=== PATIENT | male | born 1960 | race Caucasian/White ===

== ENCOUNTER → 2020-02-09 13:29 | Outpatient (BNVA) | payer MEDICARE, MEDICAID, SELFPAY | PROVIDERS: Visit Provider Urology | DX: N40.1 Benign prostatic hyperplasia with lower urinary tract symptoms (principal); N13.8 Other obstructive and reflux uropathy; R35.1 Nocturia; R81 Glycosuria; N48.1 Balanitis; N20.0 Calculus of kidney; Z79.899 Other long term (current) drug therapy | CPT/HCPCS: 51798; 81002; 99212 ==

== ENCOUNTER 2020-05-09 13:11 | Inpatient (IN) | payer MEDICARE, MEDICAID, SELFPAY ==
--- NOTE | 2020-05-09 13:38 | XR_ITS ---
EXAMINATION: XR CHEST CLINICAL INFORMATION: Cough and SOB. COMPARISON: Chest 12/09/2008 TECHNIQUE: Frontal view of the chest was obtained. FINDINGS: The lungs are in moderate inspiration with increased interstitial markings and patchy opacities in both lungs suggestive of interstitial pneumonitis. The heart size and pulmonary vascularity is normal. No gross bony abnormality seen. XR/XR chest 1V IMPRESSION: Increase interstitial markings with patchy opacity suspicious for early infiltrates.
--- NOTE | 2020-05-09 13:43 | ED.GENADULT ---
HPI - General Adult General Chief complaint: Upper Respiratory Symptoms <BIANCA Briseno - Last Filed: 05/09/20 18:37> Stated complaint: FLU LIKE SYMPTOMS <BIANCA Briseno - Last Filed: 05/09/20 18:37> Time Seen by Provider: 05/09/20 13:28 <BIANCA Briseno - Last Filed: 05/09/20 18:37> Source: patient <BIANCA Briseno - Last Filed: 05/09/20 18:37> Mode of arrival: ambulatory <BIANCA Briseno - Last Filed: 05/09/20 18:37> Limitations: no limitations <BIANCA Briseno Last Filed: 05/09/20 18:37> History of Present Illness HPI narrative: Patient presents to ED for flu-like symptoms. Patient states for 9 days coughing, shortness of breath on exertion, body aches, and chills. Patient denies any swelling of lower extremity, calf pain, recent long travel, recent surgery, or any history of control use. <BIANCA Briseno - Last Filed: 05/09/20 18:37> Related Data Home medications: Home Medications Medication Instructions Recorded Confirmed potassium citrate 15 mEq (1,620 15 meq PO BID 02/09/20 05/09/20 mg) tablet,extended release blood sugar diagnostic #10 ea 02/20/20 02/20/20 empagliflozin 25 mg tablet 25 mg PO QAM 02/20/20 05/09/20 hydrochlorothiazide 12.5 mg capsule 12.5 mg PO DAILY 02/20/20 05/09/20 Trulicity 1.5 mg SUBCUT QWEEK 05/09/20 05/09/20 cholecalciferol (vitamin D3) 1 cap PO DAILY 05/09/20 05/09/20 Previous Rx's Medication Instructions Recorded ezetimibe 10 mg tablet 10 mg PO DAILY #90 tab 02/13/20 tamsulosin 0.4 mg capsule 0.8 mg PO BEDTIME #30 cap 03/19/20 lisinopril 40 mg tablet 40 mg PO DAILY #90 tab 03/29/20 apixaban [Eliquis] 5 mg PO BID #70 tab 05/13/20 dexamethasone 6 mg PO DAILY #7 tab 02/07/21 insulin degludec 40 unit SUBCUT DAILY 90 Days #27 ml 05/13/20 omeprazole 20 mg PO DAILY #30 cap 05/13/20 <BIANCA Briseno Last Filed: 05/09/20 18:37> Allergies/adverse reactions: Allergies Allergy/AdvReac Type Severity Reaction Status Date / Time vancomycin [VANCOMYCIN] Allergy Severe ANAPHYLAXIS Verified 02/09/20 13:37 morphine [MORPHINE] Allergy Intermediate RASH Verified 02/09/20 13:37 Penicillins Allergy Intermediate edema Verified 05/13/20 10:53 penicillin V Allergy Mild unknown Verified 02/09/20 13:37 ibuprofen [From MOTRIN] Allergy Unknown edema Verified 02/20/20 09:38 Motrin AdvReac Unknown Unknown Uncoded 02/09/20 13:37 <BIANCA Briseno Last Filed: 05/09/20 18:37> Review of Systems Review of Systems: Yes all other systems are reviewed and are negative <BIANCA Briseno Last Filed: 05/09/20 18:37> Constitutional: Constitutional: Reports as per HPI, Reports no additional constitutional complaints, Reports body ache(s), Reports chills and Reports fatigue <BIANCA Briseno Last Filed: 05/09/20 18:37> Eyes: Eyes: Reports as per HPI and Reports no additional eye complaints <BIANCA Briseno Last Filed: 05/09/20 18:37> ENT: Reports system reviewed and no additional complaints, except as documented and Reports as per HPI <BIANCA Briseno Last Filed: 05/09/20 18:37> Cardiovascular: Cardiovascular: Reports as per HPI, Reports no additional cardiovascular complaints, Denies chest pain, Reports dyspnea and Reports dyspnea on exertion <BIANCA Briseno Last Filed: 05/09/20 18:37> Respiratory: Respiratory: Reports as per HPI, Reports no additional respiratory complaints, Reports dyspnea and Reports dyspnea on exertion <BIANCA Briseno Last Filed: 05/09/20 18:37> Gastrointestinal: Gastrointestinal: Reports as per HPI and Reports no additional gastrointestinal complaints <BIANCA Briseno Last Filed: 05/09/20 18:37> Genitourinary: Genitourinary: Reports no additional male genitourinary complaints and Reports as per HPI <BIANCA Briseno - Last Filed: 05/09/20 18:37> Musculoskeletal: Musculoskeletal: Reports no additional musculoskeletal complaints and Reports as per HPI <BIANCA Briseno Last Filed: 05/09/20 18:37> Neurologic: Reports system reviewed and no additional complaints, except as documented and Reports as per HPI <BIANCA Briseno - Last Filed: 05/09/20 18:37> Psychiatric: Psychiatric: Reports no additional psychiatric complaints and Reports as per HPI <BIANCA Briseno - Last Filed: 05/09/20 18:37> Endocrine: Endocrine: Reports fatigue <BIANCA Briseno Last Filed: 05/09/20 18:37> [facility] Past Medical History Medical History: Medical History Back pain CAD (coronary artery disease) Colitis Controlled diabetes mellitus without complication, with long-term current use of insulin Essential hypertension Hyperlipidemia LDL goal <70 Kidney stones Obesity due to excess calories Phimosis Vitamin D deficiency <BIANCA Briseno - Last Filed: 05/09/20 18:37> Surgical History: Surgical History History of colon surgery Hx of rotator cuff surgery <BIANCA Briseno - Last Filed: 05/09/20 18:37> Family History Family History: Family History Father Diabetes Mother No problems noted. <BIANCA Briseno - Last Filed: 05/09/20 18:37> Social History Social History: Social History Household Members: Spouse and Family Housing: Apartment Alcohol intake: never Smoking Status: Never smoker Advance Directives Date on File: 05/10/20 <BIANCA Briseno - Last Filed: 05/09/20 18:37> Physical Exam Vital Signs: Vital Signs: Last Vital Signs Temp 97.4 F 05/13/20 11:07 Pulse 92 05/13/20 11:07 Resp 16 05/13/20 11:07 BP 135/68 05/13/20 11:07 Pulse Ox 97 05/13/20 11:07 Body Mass Index 39.7 <BIANCA Briseno Last Filed: 05/09/20 18:37> Vital Signs: Last Vital Signs Temp 97.4 F 05/13/20 11:07 Pulse 92 05/13/20 11:07 Resp 16 05/13/20 11:07 BP 135/68 05/13/20 11:07 Pulse Ox 97 05/13/20 11:07 Body Mass Index 39.7 <Santo Hanson MD - Last Filed: 05/22/20 07:12> Const: General: cooperative, healthy appearing, comfortable, no acute distress, well developed, alert and awake <BIANCA Briseno Last Filed: 05/09/20 18:37> Orientation/consciousness: oriented to time and patient oriented x3 <BIANCA Briseno - Last Filed: 05/09/20 18:37> HENMT: Head: Yes normal to inspection, Yes No palpable skull fracture present, Yes normocephalic, Yes atraumatic and No abrasion <BIANCA Briseno Last Filed: 05/09/20 18:37> Eyes: General: appearance normal, both eyes and all related structures <BIANCA Briseno Last Filed: 05/09/20 18:37> Neck: Neck: Yes normal visual inspection, Yes full ROM, Yes no lymphadenopathy, Yes no meningeal signs, Yes trachea midline, Yes supple and No tender <BIANCA Briseno Last Filed: 05/09/20 18:37> Chest: Chest palpation & inspection: normal inspection of the chest and normal palpation of entire chest wall <BIANCA Briseno Last Filed: 05/09/20 18:37> Resp: Effort & Inspection: normal respiratory effort and able to speak in complete sentences <BIANCA Briseno Last Filed: 05/09/20 18:37> Auscultation: clear to auscultation bilaterally <BIANCA Briseno Last Filed: 05/09/20 18:37> Cardio: Jugular venous distension: no JVD <BIANCA Briseno Last Filed: 05/09/20 18:37> Heart sounds: S1 normal heart sound present and S2 normal heart sound present <BIANCA Briseno Last Filed: 05/09/20 18:37> GI: Inspection: Yes normal to inspection and No abdominal wall ecchymosis <BIANCA Briseno Last Filed: 05/09/20 18:37> Palpation (GI): not firm, nontender, no guarding and not rigid <BIANCA Briseno Last Filed: 05/09/20 18:37> : General: No CVA tenderness and Yes no CVA tenderness <BIANCA Briseno Last Filed: 05/09/20 18:37> Back/Spine/Pelvis: Back: no CVA tenderness, No CVA tenderness and No back tenderness <BIANCA Briseno Last Filed: 05/09/20 18:37> Skin: General skin exam: no rashes or lesions noted and elasticity normal <BIANCA Briseno Last Filed: 05/09/20 18:37> Neuro: General: oriented to time, patient oriented x3, no meningeal signs and CN's II-XI intact bilaterally <BIANCA Briseno Last Filed: 05/09/20 18:37> Cranial nerves: Yes CN's II-XII intact bilaterally <BIANCA Briseno Last Filed: 05/09/20 18:37> Extrem: Other: Negative for swelling, pitting edema, calf tenderness <BIANCA Briseno - Last Filed: 05/09/20 18:37> General: Yes normal to inspection and Yes full ROM <BIANCA Briseno Last Filed: 05/09/20 18:37> Psych: Appearance: grossly normal, well kempt and not disheveled <BIANCA Briseno Last Filed: 05/09/20 18:37> Course Course Course Narrative: Patient vital signs are monitor stable. Patient O2 saturation on room air is 94-95%. Will do COVID workup and cardiac workup due to obesity. Patient states history of asthma and would like nebulizer treatment. Albuterol inhaler and magnesium ordered. Chest x-ray ordered an EKG <BIANCA Briseno Last Filed: 05/09/20 18:37> I have reviewed the chart <Santo Hanson MD - Last Filed: 05/22/20 07:12> Reevaluation(s) Reevaluation #1: Patient EKG negative for STEMI. Patient's COVID swab came back positive. Patient's D-dimer came back positive. Due to this patient will be sent for chest CTA to rule out COVID PE. Patient given Decadron and IV antibiotics for possible admission if CT is abnormal. Patient O2 saturation on ambulation maintained around 95%. <BIANCA Briseno - Last Filed: 05/09/20 18:37> Time: 17:04 <BIANCA Briseno - Last Filed: 05/09/20 18:37> Reevaluation #2: Radiologist called to give a critical result of patient being positive for central and segmental pulmonary emboli. Patient will be admitted. Hospitalist will be contacted for preference of treatment in terms of Lovenox versus IV heparin <BIANCA Briseno - Last Filed: 05/09/20 18:37> Time: 17:41 <BIANCA Briseno - Last Filed: 05/09/20 18:37> Reevaluation #3: Spoke with hospitalist and they prefer Lovenox injection <BIANCA Briseno - Last Filed: 05/09/20 18:37> Time: 18:31 <BIANCA Briseno - Last Filed: 05/09/20 18:37> Medical Decision Making MDM Narrative Medical decision making narrative: Positive COVID. PE <BIANCA Briseno - Last Filed: 05/09/20 18:37> Lab Data Result diagrams: : 05/10/20 06:24 05/12/20 09:11 <BIANCA Briseno - Last Filed: 05/09/20 18:37> Labs: Lab Results 05/09/20 05/09/20 05/09/20 Range/Units 14:44 14:44 14:44 WBC 3.7 L (4.8-10.8) X10*3/uL RBC 4.41 L (4.60-5.80) X10*6/uL Hgb 13.0 L (14.0-18.0) g/dl Hct 36.8 L (42-52) % MCV 83.4 (80-98) fL MCH 29.5 (27.0-33.0) pg MCHC 35.3 (31.0-36.0) g/dl RDW 12.0 (11.0-16.0) % Plt Count 156 L (160-400) X10*3/uL MPV 10.3 (9.4-12.4) fL Immature Gran % (Auto) 1.4 H (0.0-0.4) % Neut % (Auto) 68.1 (45-73) % Lymph % (Auto) 19.6 L (20-40) % [place] % (Auto) 9.8 (2-11) % Eos % (Auto) 0.8 (0-4) % Baso % (Auto) 0.3 (0-2) % Lymph # (Auto) 0.7 L (1.2-4.9) X10*3/uL [place] # (Auto) 0.4 (0.1-1.2) X10*3/uL Eos # (Auto) 0.0 (0.0-0.4) X10*3/uL Baso # (Auto) 0.0 (0.0-0.2) X10*3/uL Abs Immat Gran (auto) 0.05 H (0.00-0.03) X10*3/uL Absolute Neuts (auto) 2.5 (2.0-8.3) X10*3/uL Absolute Nucleated RBC 0.000 (0.0-0.012) X10*3/uL Nucleated RBC % (auto) 0.0 (0.0-0.2) /100WBC PT 12.3 (10.8-13.0) SEC INR 1.0 (0.9-1.1) APTT 30.0 (24.1-38.0) SEC D-Dimer 1244 NG/ML Sodium 132 L (135-145) mmol/L Potassium 3.5 (3.3-5.1) mmol/L Chloride 103 (96-108) mmol/L Carbon Dioxide 20 L (22-29) mmol/L Anion Gap 13 (12-20) BUN 12 (9-16) mg/dL Creatinine 1.32 (0.5-1.4) mg/dL Estim Creat Clear Calc 73.9 Estimated GFR 56 POC Glucose (60-115) mg/dL Random Glucose 322 H (60-115) mg/dL Lactic Acid (0.5-2.0) mmol/L Calcium 7.8 L (8.4-10.2) mg/dL Ferritin 2518 H (20-250) ng/mL Total Bilirubin 0.7 (0.0-1.0) mg/dL Direct Bilirubin 0.3 (0.0-0.5) mg/dL AST 36 (5-37) U/L ALT 37 (0-40) U/L Alkaline Phosphatase 77 (39-117) U/L Lactate Dehydrogenase 293 H (118-273) U/L Troponin I High Sens (<3.5-35.0) ng/L B-Natriuretic Peptide (<100) pg/mL Total Protein 6.2 L (6.5-8.0) g/dL Albumin 3.3 L (3.5-5.0) g/dL Procalcitonin ng/mL Coronavirus (PCR) (Negative) Influenza Type A (PCR) (Negative) Influenza Type B (PCR) (Negative) RSV RNA Qual (PCR) (Negative) 05/09/20 05/09/20 05/09/20 Range/Units 14:44 14:44 14:44 WBC (4.8-10.8) X10*3/uL RBC (4.60-5.80) X10*6/uL Hgb (14.0-18.0) g/dl Hct (42-52) % MCV (80-98) fL MCH (27.0-33.0) pg MCHC (31.0-36.0) g/dl RDW (11.0-16.0) % Plt Count (160-400) X10*3/uL MPV (9.4-12.4) fL Immature Gran % (Auto) (0.0-0.4) % Neut % (Auto) (45-73) % Lymph % (Auto) (20-40) % [place] % (Auto) (2-11) % Eos % (Auto) (0-4) % Baso % (Auto) (0-2) % Lymph # (Auto) (1.2-4.9) X10*3/uL [place] # (Auto) (0.1-1.2) X10*3/uL Eos # (Auto) (0.0-0.4) X10*3/uL Baso # (Auto) (0.0-0.2) X10*3/uL Abs Immat Gran (auto) (0.00-0.03) X10*3/uL Absolute Neuts (auto) (2.0-8.3) X10*3/uL Absolute Nucleated RBC (0.0-0.012) X10*3/uL Nucleated RBC % (auto) (0.0-0.2) /100WBC PT (10.8-13.0) SEC INR (0.9-1.1) APTT (24.1-38.0) SEC D-Dimer NG/ML Sodium (135-145) mmol/L Potassium (3.3-5.1) mmol/L Chloride (96-108) mmol/L Carbon Dioxide (22-29) mmol/L Anion Gap (12-20) BUN (9-16) mg/dL Creatinine (0.5-1.4) mg/dL Estim Creat Clear Calc Estimated GFR POC Glucose (60-115) mg/dL Random Glucose (60-115) mg/dL Lactic Acid 0.8 (0.5-2.0) mmol/L Calcium (8.4-10.2) mg/dL Ferritin (20-250) ng/mL Total Bilirubin (0.0-1.0) mg/dL Direct Bilirubin (0.0-0.5) mg/dL AST (5-37) U/L ALT (0-40) U/L Alkaline Phosphatase (39-117) U/L Lactate Dehydrogenase (118-273) U/L Troponin I High Sens 8.4 (<3.5-35.0) ng/L B-Natriuretic Peptide 18 (<100) pg/mL Total Protein (6.5-8.0) g/dL Albumin (3.5-5.0) g/dL Procalcitonin 0.13 ng/mL Coronavirus (PCR) (Negative) Influenza Type A (PCR) (Negative) Influenza Type B (PCR) (Negative) RSV RNA Qual (PCR) (Negative) 05/09/20 05/09/20 05/09/20 Range/Units 14:45 19:01 19:52 WBC (4.8-10.8) X10*3/uL RBC (4.60-5.80) X10*6/uL Hgb (14.0-18.0) g/dl Hct (42-52) % MCV (80-98) fL MCH (27.0-33.0) pg MCHC (31.0-36.0) g/dl RDW (11.0-16.0) % Plt Count (160-400) X10*3/uL MPV (9.4-12.4) fL Immature Gran % (Auto) (0.0-0.4) % Neut % (Auto) (45-73) % Lymph % (Auto) (20-40) % [place] % (Auto) (2-11) % Eos % (Auto) (0-4) % Baso % (Auto) (0-2) % Lymph # (Auto) (1.2-4.9) X10*3/uL [place] # (Auto) (0.1-1.2) X10*3/uL Eos # (Auto) (0.0-0.4) X10*3/uL Baso # (Auto) (0.0-0.2) X10*3/uL Abs Immat Gran (auto) (0.00-0.03) X10*3/uL Absolute Neuts (auto) (2.0-8.3) X10*3/uL Absolute Nucleated RBC (0.0-0.012) X10*3/uL Nucleated RBC % (auto) (0.0-0.2) /100WBC PT (10.8-13.0) SEC INR (0.9-1.1) APTT (24.1-38.0) SEC D-Dimer NG/ML Sodium (135-145) mmol/L Potassium (3.3-5.1) mmol/L Chloride (96-108) mmol/L Carbon Dioxide (22-29) mmol/L Anion Gap (12-20) BUN (9-16) mg/dL Creatinine (0.5-1.4) mg/dL Estim Creat Clear Calc Estimated GFR POC Glucose 305 H (60-115) mg/dL Random Glucose (60-115) mg/dL Lactic Acid (0.5-2.0) mmol/L Calcium (8.4-10.2) mg/dL Ferritin (20-250) ng/mL Total Bilirubin (0.0-1.0) mg/dL Direct Bilirubin (0.0-0.5) mg/dL AST (5-37) U/L ALT (0-40) U/L Alkaline Phosphatase (39-117) U/L Lactate Dehydrogenase (118-273) U/L Troponin I High Sens 9.4 (<3.5-35.0) ng/L B-Natriuretic Peptide (<100) pg/mL Total Protein (6.5-8.0) g/dL Albumin (3.5-5.0) g/dL Procalcitonin ng/mL Coronavirus (PCR) POSITIVE A (Negative) Influenza Type A (PCR) NEGATIVE (Negative) Influenza Type B (PCR) NEGATIVE (Negative) RSV RNA Qual (PCR) NEGATIVE (Negative) <BIANCA Briseno - Last Filed: 05/09/20 18:37> Lab Results 05/09/20 05/09/20 05/09/20 Range/Units 14:44 14:44 14:44 WBC 3.7 L (4.8-10.8) X10*3/uL RBC 4.41 L (4.60-5.80) X10*6/uL Hgb 13.0 L (14.0-18.0) g/dl Hct 36.8 L (42-52) % MCV 83.4 (80-98) fL MCH 29.5 (27.0-33.0) pg MCHC 35.3 (31.0-36.0) g/dl RDW 12.0 (11.0-16.0) % Plt Count 156 L (160-400) X10*3/uL MPV 10.3 (9.4-12.4) fL Immature Gran % (Auto) 1.4 H (0.0-0.4) % Neut % (Auto) 68.1 (45-73) % Lymph % (Auto) 19.6 L (20-40) % [place] % (Auto) 9.8 (2-11) % Eos % (Auto) 0.8 (0-4) % Baso % (Auto) 0.3 (0-2) % Lymph # (Auto) 0.7 L (1.2-4.9) X10*3/uL [place] # (Auto) 0.4 (0.1-1.2) X10*3/uL Eos # (Auto) 0.0 (0.0-0.4) X10*3/uL Baso # (Auto) 0.0 (0.0-0.2) X10*3/uL Abs Immat Gran (auto) 0.05 H (0.00-0.03) X10*3/uL Absolute Neuts (auto) 2.5 (2.0-8.3) X10*3/uL Absolute Nucleated RBC 0.000 (0.0-0.012) X10*3/uL Nucleated RBC % (auto) 0.0 (0.0-0.2) /100WBC PT 12.3 (10.8-13.0) SEC INR 1.0 (0.9-1.1) APTT 30.0 (24.1-38.0) SEC D-Dimer 1244 NG/ML Sodium 132 L (135-145) mmol/L Potassium 3.5 (3.3-5.1) mmol/L Chloride 103 (96-108) mmol/L Carbon Dioxide 20 L (22-29) mmol/L Anion Gap 13 (12-20) BUN 12 (9-16) mg/dL Creatinine 1.32 (0.5-1.4) mg/dL Estim Creat Clear Calc 73.9 Estimated GFR 56 POC Glucose (60-115) mg/dL Random Glucose 322 H (60-115) mg/dL Lactic Acid (0.5-2.0) mmol/L Calcium 7.8 L (8.4-10.2) mg/dL Ferritin 2518 H (20-250) ng/mL Total Bilirubin 0.7 (0.0-1.0) mg/dL Direct Bilirubin 0.3 (0.0-0.5) mg/dL AST 36 (5-37) U/L ALT 37 (0-40) U/L Alkaline Phosphatase 77 (39-117) U/L Lactate Dehydrogenase 293 H (118-273) U/L Troponin I High Sens (<3.5-35.0) ng/L B-Natriuretic Peptide (<100) pg/mL Total Protein 6.2 L (6.5-8.0) g/dL Albumin 3.3 L (3.5-5.0) g/dL Procalcitonin ng/mL Coronavirus (PCR) (Negative) Influenza Type A (PCR) (Negative) Influenza Type B (PCR) (Negative) RSV RNA Qual (PCR) (Negative) 05/09/20 05/09/20 05/09/20 Range/Units 14:44 14:44 14:44 WBC (4.8-10.8) X10*3/uL RBC (4.60-5.80) X10*6/uL Hgb (14.0-18.0) g/dl Hct (42-52) % MCV (80-98) fL MCH (27.0-33.0) pg MCHC (31.0-36.0) g/dl RDW (11.0-16.0) % Plt Count (160-400) X10*3/uL MPV (9.4-12.4) fL Immature Gran % (Auto) (0.0-0.4) % Neut % (Auto) (45-73) % Lymph % (Auto) (20-40) % [place] % (Auto) (2-11) % Eos % (Auto) (0-4) % Baso % (Auto) (0-2) % Lymph # (Auto) (1.2-4.9) X10*3/uL [place] # (Auto) (0.1-1.2) X10*3/uL Eos # (Auto) (0.0-0.4) X10*3/uL Baso # (Auto) (0.0-0.2) X10*3/uL Abs Immat Gran (auto) (0.00-0.03) X10*3/uL Absolute Neuts (auto) (2.0-8.3) X10*3/uL Absolute Nucleated RBC (0.0-0.012) X10*3/uL Nucleated RBC % (auto) (0.0-0.2) /100WBC PT (10.8-13.0) SEC INR (0.9-1.1) APTT (24.1-38.0) SEC D-Dimer NG/ML Sodium (135-145) mmol/L Potassium (3.3-5.1) mmol/L Chloride (96-108) mmol/L Carbon Dioxide (22-29) mmol/L Anion Gap (12-20) BUN (9-16) mg/dL Creatinine (0.5-1.4) mg/dL Estim Creat Clear Calc Estimated GFR POC Glucose (60-115) mg/dL Random Glucose (60-115) mg/dL Lactic Acid 0.8 (0.5-2.0) mmol/L Calcium (8.4-10.2) mg/dL Ferritin (20-250) ng/mL Total Bilirubin (0.0-1.0) mg/dL Direct Bilirubin (0.0-0.5) mg/dL AST (5-37) U/L ALT (0-40) U/L Alkaline Phosphatase (39-117) U/L Lactate Dehydrogenase (118-273) U/L Troponin I High Sens 8.4 (<3.5-35.0) ng/L B-Natriuretic Peptide 18 (<100) pg/mL Total Protein (6.5-8.0) g/dL Albumin (3.5-5.0) g/dL Procalcitonin 0.13 ng/mL Coronavirus (PCR) (Negative) Influenza Type A (PCR) (Negative) Influenza Type B (PCR) (Negative) RSV RNA Qual (PCR) (Negative) 05/09/20 05/09/20 05/09/20 Range/Units 14:45 19:01 19:52 WBC (4.8-10.8) X10*3/uL RBC (4.60-5.80) X10*6/uL Hgb (14.0-18.0) g/dl Hct (42-52) % MCV (80-98) fL MCH (27.0-33.0) pg MCHC (31.0-36.0) g/dl RDW (11.0-16.0) % Plt Count (160-400) X10*3/uL MPV (9.4-12.4) fL Immature Gran % (Auto) (0.0-0.4) % Neut % (Auto) (45-73) % Lymph % (Auto) (20-40) % [place] % (Auto) (2-11) % Eos % (Auto) (0-4) % Baso % (Auto) (0-2) % Lymph # (Auto) (1.2-4.9) X10*3/uL [place] # (Auto) (0.1-1.2) X10*3/uL Eos # (Auto) (0.0-0.4) X10*3/uL Baso # (Auto) (0.0-0.2) X10*3/uL Abs Immat Gran (auto) (0.00-0.03) X10*3/uL Absolute Neuts (auto) (2.0-8.3) X10*3/uL Absolute Nucleated RBC (0.0-0.012) X10*3/uL Nucleated RBC % (auto) (0.0-0.2) /100WBC PT (10.8-13.0) SEC INR (0.9-1.1) APTT (24.1-38.0) SEC D-Dimer NG/ML Sodium (135-145) mmol/L Potassium (3.3-5.1) mmol/L Chloride (96-108) mmol/L Carbon Dioxide (22-29) mmol/L Anion Gap (12-20) BUN (9-16) mg/dL Creatinine (0.5-1.4) mg/dL Estim Creat Clear Calc Estimated GFR POC Glucose 305 H (60-115) mg/dL Random Glucose (60-115) mg/dL Lactic Acid (0.5-2.0) mmol/L Calcium (8.4-10.2) mg/dL Ferritin (20-250) ng/mL Total Bilirubin (0.0-1.0) mg/dL Direct Bilirubin (0.0-0.5) mg/dL AST (5-37) U/L ALT (0-40) U/L Alkaline Phosphatase (39-117) U/L Lactate Dehydrogenase (118-273) U/L Troponin I High Sens 9.4 (<3.5-35.0) ng/L B-Natriuretic Peptide (<100) pg/mL Total Protein (6.5-8.0) g/dL Albumin (3.5-5.0) g/dL Procalcitonin ng/mL Coronavirus (PCR) POSITIVE A (Negative) Influenza Type A (PCR) NEGATIVE (Negative) Influenza Type B (PCR) NEGATIVE (Negative) RSV RNA Qual (PCR) NEGATIVE (Negative) <Santo Hanson MD - Last Filed: 05/22/20 07:12> ECG Data Interpretation: Normal sinus rhythm. Normal EKG. Ventricular rate 94. Parents were 144. QRS 96. QTC 447. Negative STEMI <BIANCA Briseno - Last Filed: 05/09/20 18:37> Discharge Plan Discharge Clinical Impression: COVID-19, Pulmonary embolism <BIANCA Briseno - Last Filed: 05/09/20 18:37> Patient Disposition: Admitted As Inpatient <BIANCA Briseno - Last Filed: 05/09/20 18:37> Interventions: Admission Worksheet (ED) Last Done: 05/10/20 13:29 <BIANCA Briseno - Last Filed: 05/09/20 18:37> Discharge Date/Time: 05/10/20 13:30 <BIANCA Briseno - Last Filed: 05/09/20 18:37>
[2020-05-09 13:52] VITALS: BP 154/61; PULSE 94; RESP 18; TEMP 37.2; O2SAT 96; BMI 39.7
--- NOTE | 2020-05-09 13:52 | ECG_ITS ---
Test Reason : CP Blood Pressure : / mmHG Vent. Rate : 094 BPM Atrial Rate : 094 BPM P-R Int : 144 ms QRS Dur : 096 ms QT Int : 358 ms P-R-T Axes : 049 035 055 degrees QTc Int : 447 ms Normal sinus rhythm Normal ECG When compared with ECG of 10-DEC-2019 07:03, No significant change was found Referred By: Casey Gunter Electronically Signed By:CHARLEY DUNCAN
[2020-05-09] MEDS: Magnesium Sulfate/H2O 2 GM/50 ML PIGGYBACK IV (14:17)
[2020-05-09] MEDS: 0.9 % Sodium Chloride 1,000 ML 999 ML IV (14:18)
[2020-05-09 14:39] VITALS: PULSE 92; O2SAT 93
[2020-05-09] MEDS: Albuterol/Iprat 2.5/0.5MG 3 ML AMPUL.NEB INHALE (14:39)
[2020-05-09 14:52] LABS: MANUAL DIFF FLAG NO
[2020-05-09 14:53] LABS: Basophils Percent Auto 0.3 % (0-2); Eosinophils Percent Auto 0.8 % (0-4); Hematocrit 36.8 % (42-52); Imm Gran Abs Auto 0.05 X10*3/uL (0.00-0.03); Imm Gran Pct Auto 1.4 % (0.0-0.4); Lymphocytes Absolute Auto 0.7 X10*3/uL (1.2-4.9); Lymphocytes Percent Auto 19.6 % (20-40); Mean Corpuscular HGB Conc 35.3 g/dl (31.0-36.0); Mean Corpuscular Hemoglobin 29.5 pg (27.0-33.0); Mean Corpuscular Volume 83.4 fL (80-98); Mean Platelet Volume 10.3 fL (9.4-12.4); Monocytes Absolute Auto 0.4 X10*3/uL (0.1-1.2); Monocytes Percent Auto 9.8 % (2-11); Neutrophils Absolute Auto 2.5 X10*3/uL (2.0-8.3); Neutrophils Percent Auto 68.1 % (45-73); Platelet Count 156 X10*3/uL (160-400); Red Blood Count 4.41 X10*6/uL (4.60-5.80); White Blood Count 3.7 X10*3/uL (4.8-10.8)
[2020-05-09 15:02] LABS: Prothrombin Time 12.3 SEC (10.8-13.0)
[2020-05-09 15:10] LABS: Lactic Acid 0.8 mmol/L (0.5-2.0)
[2020-05-09 15:12] LABS: D Dimer 1244 NG/ML
[2020-05-09 15:16] LABS: Alanine Aminotransferase 37 U/L (0-40); Albumin Level 3.3 g/dL (3.5-5.0); Alkaline Phosphatase 77 U/L (39-117); Anion Gap 13 (12-20); Aspartate Amino Transferase 36 U/L (5-37); Bilirubin Direct 0.3 mg/dL (0.0-0.5); Bilirubin Total 0.7 mg/dL (0.0-1.0); Blood Urea Nitrogen 12 mg/dL (9-16); Calcium 7.8 mg/dL (8.4-10.2); Carbon Dioxide 20 mmol/L (22-29); Chloride 103 mmol/L (96-108); Creatinine Clr Calc Pharmacy 73.9; Estimated Glomerular Filt Rate 56; Glucose Random 322 mg/dL (60-115); Lactate Dehydrogenase 293 U/L (118-273); Potassium 3.5 mmol/L (3.3-5.1); Sodium 132 mmol/L (135-145); Total Protein 6.2 g/dL (6.5-8.0)
[2020-05-09 15:21] LABS: B Type Natriuretic Peptide 18 pg/mL (<100); Troponin-I High Sensitivity 8.4 ng/L (<3.5-35.0)
--- NOTE | 2020-05-09 15:26 | CT_ITS ---
EXAMINATION: CT ANGIOGRAM CHEST WITH AND WITHOUT CONTRAST (CT PULMONARY ANGIOGRAM FOR PE) CLINICAL INFORMATION: Shortness of breath. Question COVID pneumonia, question PE. COMPARISON: Chest x-ray 05/09/2020. TECHNIQUE: Prior to contrast administration, noncontrast localization images were obtained. Subsequently, multidetector volumetric imaging was performed from the thoracic inlet to below the diaphragms following the administration of 71 mL Omnipaque 350 intravenous contrast. No contrast reaction reported. Sagittal, coronal, and MIP oblique sagittal reformatted images were obtained on the CT workstation, uploaded to PACS, and reviewed. This CT examination was performed using dose optimization techniques as appropriate, variously including the following: *Automated exposure control. *Adjustment of mA and/or kV according to patient size (this includes techniques or standardized protocols for targeted exams where dose is matched to indication/reason for exam; i.e. extremities or head). *Use of iterative reconstruction technique. Total exam dose-length product 552 mGy-cm. FINDINGS: QUALITY OF STUDY/CONTRAST BOLUS: Satisfactory. PULMONARY ARTERIES: Multiple filling defects in the central, segmental and subsegmental vessels in bilateral pulmonary arterial system compatible with pulmonary embolus. This includes thrombosis in the right main pulmonary artery, segmental and subsegmental vessels in the right hemithorax, the left upper lobe, left lower lobe. THORACIC AORTA: Normal caliber aorta. LUNG: Multifocal ground-glass opacities in the diffusely in the right hemithorax, and multifocal opacities in the left hemithorax to a lesser degree. These findings can be seen with COVID pneumonia. PLEURA: No pleural effusion or pneumothorax. MEDIASTINUM: Normal heart size. No pericardial effusion. Prominent mediastinal lymph nodes measuring up to 0.9 cm in short axis. No hilar lymphadenopathy. No evidence of septal bowing or right heart strain. CHEST WALL/AXILLA: No axillary or internal mammary lymphadenopathy. OSSEOUS STRUCTURES: No acute or suspicious osseous abnormality. Thoracic spine degeneration. UPPER ABDOMEN: Unremarkable. No reflux of contrast into the hepatic veins to suggest elevated right heart pressures. CT/CT angio chest PE protocol IMPRESSION: 1. Study positive for pulmonary embolism, with emboli within the central and segmental vessels in bilateral hemithoraces, as detailed above. 2. Multifocal ground-glass opacities in bilateral hemithoraces, more prominent on the right. This can be seen with COVID pneumonia. Recommend follow up CT scan post treatment to ensure resolution. VTE: Positive. This critical result was discussed with Dr. Casey Gunter at 1730 hours on 05/09/2020 and it was ascertained that the content and urgency of the report was understood at the time of direct communication.
[2020-05-09 15:35] LABS: Procalcitonin 0.13 ng/mL
[2020-05-09 15:41] LABS: Influenza A PCR NEGATIVE (Negative); Influenza B PCR NEGATIVE (Negative); Resp Syncy Virus RNA Qual PCR NEGATIVE (Negative); SARS COV2 PCR INHOUSE POSITIVE (Negative)
[2020-05-09 15:57] VITALS: BP 158/74; PULSE 95; RESP 20; O2SAT 97
[2020-05-09 16:30] LABS: Ferritin 2518 ng/mL (20-250)
[2020-05-09] MEDS: cefTRIAXone sodium 1 GM in 0.9 % Sodium Chloride 50 ML IV (16:49)
[2020-05-09] MEDS: diphenhydrAMINE HCL 50 MG/ML VIAL IVPUSH (16:49)
[2020-05-09] MEDS: iohexoL 350 MG/ML 100 ML INFUS..BTL IV (17:09)
[2020-05-09 19:22] VITALS: BP 141/76; PULSE 90; RESP 19; O2SAT 94
[2020-05-09] MEDS: Enoxaparin Sodium 100 MG/ML SYRINGE 115 MG SUBCUT (19:32)
[2020-05-09 19:40] LABS: Troponin-I High Sensitivity 9.4 ng/L (<3.5-35.0)
[2020-05-09 19:56] LABS: Glucose, Whole Blood 305 mg/dL (60-115)
--- NOTE | 2020-05-09 20:08 | PM.IMHP ---
History of Present Illness Date of Service: 05/09/20 Chief Complaint: SOB 60-year-old male with a past medical history of hypertension, hyperlipidemia, diabetes, coronary artery disease, obesity, history of renal calculi, history of chronic back pain, vitamin-D deficiency presented to the hospital with a chief complaint of shortness of breath. Patient reports that over the past week he has been having shortness of breath associated with occasional dry cough. Denies any chest pain palpitations. Mentioned that he also had like a flu-like symptoms including body aches chills. Denies any COVID exposures. Denies any numbness tingling. Denies any GI or symptoms. Review of all other systems is negative except mentioned above ER course: Per ER team patient COVID-[address] scan showed segmental and subsegmental PE along with multifocal pneumonia. Patient was given IV antibiotics and Lovenox and admitted to the hospital for further management. [facility] Medical History Back pain CAD (coronary artery disease) Colitis Controlled diabetes mellitus without complication, with long-term current use of insulin Essential hypertension Hyperlipidemia LDL goal <70 Kidney stones Obesity due to excess calories Phimosis Vitamin D deficiency Family History Father Diabetes Mother No problems noted. Surgical History History of colon surgery Hx of rotator cuff surgery Social History (Updated 02/20/20 @ 09:44 by FERNANDO Sterling) Household Members: Spouse Smoking Status: Never smoker Advance Directives: Yes Advance Directives Information Provided: Yes Advance Directives on File: No Meds Allergies Allergy/AdvReac Type Severity Reaction Status Date / Time vancomycin [VANCOMYCIN] Allergy Severe ANAPHYLAXIS Verified 02/09/20 13:37 morphine [MORPHINE] Allergy Intermediate RASH Verified 02/09/20 13:37 Penicillins Allergy Intermediate edema Unverified 02/20/20 09:38 penicillin V Allergy Mild unknown Verified 02/09/20 13:37 ibuprofen [From MOTRIN] Allergy Unknown edema Verified 02/20/20 09:38 Motrin AdvReac Unknown Unknown Uncoded 02/09/20 13:37 Home Medications Medication Instructions Recorded Confirmed Type potassium citrate 15 mEq (1,620 15 meq PO BID 02/09/20 05/09/20 History mg) tablet,extended release blood sugar diagnostic #10 ea 02/20/20 02/20/20 History empagliflozin 25 mg tablet 25 mg PO QAM 02/20/20 05/09/20 History hydrochlorothiazide 12.5 mg capsule 12.5 mg PO DAILY 02/20/20 05/09/20 History cholecalciferol (vitamin D3) 1 cap PO DAILY 05/09/20 05/09/20 History dulaglutide [Trulicity] 1.5 mg SUBCUT QWEEK 05/09/20 05/09/20 History Physical Exam Vital Signs and Narrative: Vital Signs: Last Vital Signs Temp 99 F 05/09/20 13:52 Pulse 90 05/09/20 19:22 Resp 19 05/09/20 19:22 BP 141/76 H 05/09/20 19:22 Pulse Ox 94 05/09/20 19:22 Body Mass Index 39.7 Gen: Appears be in no acute distress; breathing comfortably HEENT: NCAT, Moist mucosa. Pulmonary: Course breath sounds, fair air entry CVS: Normal S1-S2 Abdomen: BS+, Soft, Nontender Extremities: Warm well perfused Neuro: Alert and awake. Results Labs CBC and Chem 7: 05/09/20 14:44 05/09/20 14:44 Labs: Laboratory Results - last 24 hr 05/09/20 05/09/20 05/09/20 14:44 14:44 14:44 MCV 83.4 MCH 29.5 MCHC 35.3 RDW 12.0 Plt Count 156 L MPV 10.3 Immature Gran % (Auto) 1.4 H Neut % (Auto) 68.1 Lymph % (Auto) 19.6 L [place] % (Auto) 9.8 Eos % (Auto) 0.8 Baso % (Auto) 0.3 Lymph # (Auto) 0.7 L [place] # (Auto) 0.4 Eos # (Auto) 0.0 Baso # (Auto) 0.0 Abs Immat Gran (auto) 0.05 H Absolute Neuts (auto) 2.5 Absolute Nucleated RBC 0.000 Nucleated RBC % (auto) 0.0 PT 12.3 INR 1.0 APTT 30.0 D-Dimer 1244 Anion Gap 13 Estim Creat Clear Calc 73.9 Estimated GFR 56 POC Glucose Random Glucose 322 H Lactic Acid Calcium 7.8 L Ferritin 2518 H Total Bilirubin 0.7 Direct Bilirubin 0.3 AST 36 ALT 37 Alkaline Phosphatase 77 Lactate Dehydrogenase 293 H Troponin I High Sens B-Natriuretic Peptide Total Protein 6.2 L Albumin 3.3 L Procalcitonin Coronavirus (PCR) Influenza Type A (PCR) Influenza Type B (PCR) RSV RNA Qual (PCR) 05/09/20 05/09/20 05/09/20 14:44 14:44 14:44 MCV MCH MCHC RDW Plt Count MPV Immature Gran % (Auto) Neut % (Auto) Lymph % (Auto) [place] % (Auto) Eos % (Auto) Baso % (Auto) Lymph # (Auto) [place] # (Auto) Eos # (Auto) Baso # (Auto) Abs Immat Gran (auto) Absolute Neuts (auto) Absolute Nucleated RBC Nucleated RBC % (auto) PT INR APTT D-Dimer Anion Gap Estim Creat Clear Calc Estimated GFR POC Glucose Random Glucose Lactic Acid 0.8 Calcium Ferritin Total Bilirubin Direct Bilirubin AST ALT Alkaline Phosphatase Lactate Dehydrogenase Troponin I High Sens 8.4 B-Natriuretic Peptide 18 Total Protein Albumin Procalcitonin 0.13 Coronavirus (PCR) Influenza Type A (PCR) Influenza Type B (PCR) RSV RNA Qual (PCR) 05/09/20 05/09/20 05/09/20 14:45 19:01 19:52 MCV MCH MCHC RDW Plt Count MPV Immature Gran % (Auto) Neut % (Auto) Lymph % (Auto) [place] % (Auto) Eos % (Auto) Baso % (Auto) Lymph # (Auto) [place] # (Auto) Eos # (Auto) Baso # (Auto) Abs Immat Gran (auto) Absolute Neuts (auto) Absolute Nucleated RBC Nucleated RBC % (auto) PT INR APTT D-Dimer Anion Gap Estim Creat Clear Calc Estimated GFR POC Glucose 305 H Random Glucose Lactic Acid Calcium Ferritin Total Bilirubin Direct Bilirubin AST ALT Alkaline Phosphatase Lactate Dehydrogenase Troponin I High Sens 9.4 B-Natriuretic Peptide Total Protein Albumin Procalcitonin Coronavirus (PCR) POSITIVE A Influenza Type A (PCR) NEGATIVE Influenza Type B (PCR) NEGATIVE RSV RNA Qual (PCR) NEGATIVE Imaging Radiologist's Impressions: Impressions Chest X-Ray 05/09/20 13:38 IMPRESSION: Increase interstitial markings with patchy opacity suspicious for early infiltrates. Chest CTA 05/09/20 15:26 IMPRESSION: 1. Study positive for pulmonary embolism, with emboli within the central and segmental vessels in bilateral hemithoraces, as detailed above. 2. Multifocal ground-glass opacities in bilateral hemithoraces, more prominent on the right. This can be seen with COVID pneumonia. Recommend follow up CT scan post treatment to ensure resolution. VTE: Positive. This critical result was discussed with Dr. Casey Gunter at 1730 hours on 05/09/2020 and it was ascertained that the content and urgency of the report was understood at the time of direct communication. Assessment and Plan (1) COVID-19: Status: Acute 60-year-old male with a past medical history of hypertension, hyperlipidemia, diabetes, coronary artery disease, chronic back pain, BPH presented to the hospital with a chief complaint of shortness of breath/body aches/chills. Noted to have COVID-[address] scan also showed segmental and subsegmental PE. COVID-19 pneumonia: Will give the patient on contact and airborne isolation. Decadron 6 mg daily Ceftriaxone and azithromycin daily Supplemental oxygen p.r.n. Infectious Disease consult for further recommendations Pulmonary embolism: CT scan showed segmental and subsegmental PE. Spoke to the radiologist Dr. ary longoria-who mention there is no evidence of right heart strain on the CT scan. Troponins negative. Blood pressure is stable. Continue Lovenox 1 milligram/kg twice daily. Hypertension/hyperlipidemia: Continue home lisinopril, statin. Diabetes: Hold home regimen. Will give the patient on Lantus 10+ insulin sliding scale. Titrate insulins as needed for fingerstick glucose. Code status: Full code
[2020-05-09] MEDS: Azithromycin 500 MG TABLET PO (20:20)
[2020-05-09] MEDS: Insulin Glargine,Hum.rec.anlog 100 UNIT/ML 10 ML VIAL 10 UNIT SUBCUT (21:28)
[2020-05-09] MEDS: Tamsulosin HCL 0.4 MG CAPSULE 0.8 MG PO (21:28)
[2020-05-09] MEDS: Melatonin 3 MG TABLET PO (22:26)
[2020-05-10] VITALS (8 sets, daily range): BP systolic 138–166; BP diastolic 68–83; PULSE 81–101; RESP 16–24; TEMP 36.6–36.9; O2SAT 93–96
[2020-05-10] MEDS: Benzonatate 100 MG CAPSULE PO ×3 (00:06→18:41)
--- NOTE | 2020-05-10 00:07 | PC.NURSE ---
MEDICATED CHARTED FOR COUGH. PATIENT REQUESTS AN UPDRAFT. COARSE IN RIGHT LOWER LOBE.
[2020-05-10] MEDS: 0.9 % Sodium Chloride Flush 3 ML SYRINGE IVFLUSH ×4 (01:25→21:14)
[2020-05-10 06:46] LABS: Hematocrit 37.9 % (42-52); Mean Corpuscular HGB Conc 34.3 g/dl (31.0-36.0); Mean Corpuscular Hemoglobin 29.1 pg (27.0-33.0); Mean Platelet Volume 10.7 fL (9.4-12.4); Platelet Count 171 X10*3/uL (160-400); Red Blood Count 4.46 X10*6/uL (4.60-5.80); White Blood Count 3.2 X10*3/uL (4.8-10.8)
[2020-05-10 07:36] LABS: Anion Gap 16 (12-20); Blood Urea Nitrogen 20 mg/dL (9-16); Calcium 8.1 mg/dL (8.4-10.2); Carbon Dioxide 19 mmol/L (22-29); Chloride 104 mmol/L (96-108); Creatinine Clr Calc Pharmacy 69.2; Estimated Glomerular Filt Rate 52; Glucose Random 421 mg/dL (60-115); Potassium 4.7 mmol/L (3.3-5.1); Sodium 134 mmol/L (135-145)
[2020-05-10] MEDS: Cholecalciferol (Vitamin D3) 25 MCG TABLET 50 MCG PO (09:35)
[2020-05-10] MEDS: Enoxaparin Sodium 120 MG/0.8 ML SYRINGE 115 MG SUBCUT ×2 (09:36→21:13)
[2020-05-10] MEDS: dexAMETHasone 6 MG TABLET PO (09:36)
[2020-05-10 09:46] LABS: Glucose, Whole Blood 320 mg/dL (60-115)
[2020-05-10] MEDS: Insulin Glargine,Hum.rec.anlog 100 UNIT/ML 10 ML VIAL 35 UNIT SUBCUT (10:11)
[2020-05-10] MEDS: Insulin Lispro 100 UNIT/ML 3 ML VIAL SUBCUT ×5 (10:12→21:14)
[2020-05-10 12:08] LABS: Hemoglobin A1c % > 14.0 %
[2020-05-10 13:57] LABS: Glucose, Whole Blood 328 mg/dL (60-115)
[2020-05-10 16:22] LABS: Glucose, Whole Blood 426 mg/dL (60-115)
[2020-05-10] MEDS: cefTRIAXone sodium 1 GM in 0.9 % Sodium Chloride 50 ML IV (16:37)
[2020-05-10 18:44] LABS: INTERNATIONAL NORM RATIO 1.1 (0.9-1.1)
--- NOTE | 2020-05-10 18:53 | P.PNIM_ITS ---
Subjective Subjective Date of Service: 05/10/20 Interval History: COVID pneumonia Review of Systems Patient still has some cough denies any chest pain or abdominal pain or fever or chills or nausea or vomiting or weakness. Physical Exam Vital Signs: Vital Signs: Last Vital Signs Temp 97.8 F 05/10/20 15:24 Pulse 89 05/10/20 15:24 Resp 18 05/10/20 15:24 BP 138/68 05/10/20 15:24 Pulse Ox 94 05/10/20 15:24 Body Mass Index 39.7 Physical exam: Constitutional: Not in acute distress Cvs: rrr, [id number] , no murmur res: Fair air entry,,no rhonchii or wheezing abd: no rebound or guarding ,nt, bs present. ext pulses present , no cyanosis neuro: axo3 , nonfocal. Objective Data Current Medications Generic Name Dose Route Start Last Admin Trade Name Freq PRN Reason Stop Dose Admin Acetaminophen 650 mg 05/09/20 20:02 Acetaminophen Supp 650 Mg Supp.Rect MN Q6H PRN Pain, Mild (Pain Scale 1-3) Azithromycin 500 mg 05/09/20 21:00 05/09/20 20:20 Azithromycin 500 Mg Tablet PO 500 mg Q24H LURDES Administration Benzonatate 100 mg 05/09/20 23:47 05/10/20 18:41 Benzonatate 100 Mg Capsule PO 100 mg TID PRN Administration Cough Dexamethasone 6 mg 05/10/20 09:00 05/10/20 09:36 Dexamethasone 6 Mg Tablet PO 6 mg DAILY LURDES Administration Ezetimibe 10 mg 05/10/20 09:00 Ezetimibe 10 Mg Tablet PO DAILY [facility] Enoxaparin Sodium 115 mg 05/10/20 08:00 05/10/20 09:36 Enoxaparin Sodium 120 Mg/0.8 Ml Syringe 1 mg/kg (115 mg) 115 mg SUBCUT Administration Q12H [facility] Ceftriaxone Sodium 1 gm/ 50 mls @ 100 mls/hr 05/10/20 16:00 05/10/20 16:37 Sodium Chloride IV 100 mls/hr DAILY LURDES Administration Insulin Glargine 40 unit 05/11/20 09:00 Insulin Glargine,Hum.Rec.Anlog 100 Unit/Ml 10 Ml Vial SUBCUT DAILY [facility] Insulin Human Lispro 0 unit 05/10/20 11:30 05/10/20 16:37 Insulin Lispro 100 Unit/Ml 3 Ml Vial SUBCUT 10 unit QIDACHS LURDES Administration Protocol Magnesium Hydroxide 30 ml 05/09/20 20:02 Milk Of Magnesia 30 Ml Oral.Susp PO DAILY PRN Constipation Melatonin 3 mg 05/09/20 21:28 05/09/20 22:26 Melatonin 3 Mg Tablet PO 3 mg BEDTIME PRN Administration Insomnia Pharmacy Consult 1 each 05/09/20 18:11 Consult Rx Perform Med Rec MISCELLANE ONCE PRN Consult order Sodium Chloride 3 ml 05/10/20 00:00 05/10/20 16:38 0.9 % Sodium Chloride Flush 3 Ml Syringe IVFLUSH 3 ml QSHIFT LURDES Administration Tamsulosin HCl 0.8 mg 05/09/20 21:00 05/09/20 21:28 Tamsulosin Hcl 0.4 Mg Capsule PO 0.8 mg BEDTIME LURDES Administration Vitamin D 50 mcg 05/10/20 09:00 05/10/20 09:35 Cholecalciferol (Vitamin D3) 25 Mcg Tablet PO 50 mcg DAILY LURDES Administration Labs CBC & Chem 7: 05/10/20 06:24 05/10/20 06:24 Microbiology Microbiology Results: Microbiology 05/09/20 14:49 Blood - Venous Blood Culture - Preliminary No growth after 24 hours. 05/09/20 14:44 Blood - Venous Blood Culture - Preliminary No growth after 24 hours. Assessment and Plan (1) COVID-19: Status: Acute Assessment and Plan: 60-year-old male with a past medical history of hypertension, hyperlipidemia, diabetes, coronary artery disease, chronic back pain, BPH presented to the hospital with a chief complaint of shortness of breath/body aches/chills. Noted to have COVID-[address] scan also showed segmental and subsegmental PE. 1.COVID-19 pneumonia: Decadron 6 mg daily Ceftriaxone and azithromycin daily Supplemental oxygen p.r.n. Infectious Disease consult for further recommendations 2.Pulmonary embolism: CT scan showed segmental and subsegmental PE. Spoke to the radiologist Dr. mcallister beta-who mention there is no evidence of right heart strain on the CT scan. Troponins negative. Blood pressure is stable. Continue Lovenox 1 milligram/kg twice daily. Hematology evaluation 3.Hypertension/hyperlipidemia: Continue home lisinopril, statin. 4.Diabetes: , fingersticks are running in 300-400 range Added Lantus back, also fingersticks with sliding scale adjusted coverage. 5.aniyah: Added p.o. hydration free water 250 mL q.6 hour. Will monitor BMP.
[2020-05-10 19:59] LABS: Glucose, Whole Blood 388 mg/dL (60-115)
[2020-05-10] MEDS: Tamsulosin HCL 0.4 MG CAPSULE 0.8 MG PO (21:13)
[2020-05-10] MEDS: Azithromycin 500 MG TABLET PO (21:14)
[2020-05-10] MEDS: Melatonin 3 MG TABLET PO (23:28)
[2020-05-10] MEDS: guaiFEN/Codeine SF 200/20/10ML 10 ML LIQUID 5 ML PO (23:28)
[2020-05-11] VITALS: BP 157/76; PULSE 91; RESP 18; TEMP 36.8; O2SAT 94
[2020-05-11 04:00] VITALS: BP 145/83; PULSE 80; RESP 18; TEMP 36.6; O2SAT 96
[2020-05-11] MEDS: guaiFEN/Codeine SF 200/20/10ML 10 ML LIQUID 5 ML PO (07:21)
[2020-05-11] MEDS: 0.9 % Sodium Chloride Flush 3 ML SYRINGE IVFLUSH ×2 (07:22→17:30)
[2020-05-11] MEDS: Enoxaparin Sodium 120 MG/0.8 ML SYRINGE 115 MG SUBCUT ×2 (07:35→20:28)
[2020-05-11] MEDS: Insulin Glargine,Hum.rec.anlog 100 UNIT/ML 10 ML VIAL 40 UNIT SUBCUT (07:36)
[2020-05-11] MEDS: cefTRIAXone sodium 1 GM in 0.9 % Sodium Chloride 50 ML IV (07:36)
[2020-05-11] MEDS: Insulin Lispro 100 UNIT/ML 3 ML VIAL SUBCUT ×4 (07:37→20:28)
[2020-05-11] MEDS: Cholecalciferol (Vitamin D3) 25 MCG TABLET 50 MCG PO (07:37)
[2020-05-11] MEDS: Ezetimibe 10 MG TABLET PO (07:37)
[2020-05-11] MEDS: dexAMETHasone 6 MG TABLET PO (07:37)
[2020-05-11] MEDS: Benzonatate 100 MG CAPSULE PO ×2 (07:39→20:30)
[2020-05-11 08:00] VITALS: BP 151/83; PULSE 73; RESP 18; TEMP 36.2; O2SAT 96
[2020-05-11 08:15] LABS: Glucose, Whole Blood 233 mg/dL (60-115)
--- NOTE | 2020-05-11 08:30 | CA_ITS ---
Transthoracic Echocardiogram Patient (Last, First, Middle): Saurav Loyola, Gender: Male Date of : 1960 Age: 60 Procedure Date: 05/11/2020 Procedure Type: Transthoracic Echocardiogram Location: [facility] – [place], [place] Height: 170.18 cm Weight: 115.21 kg BSA: 2.24 m2 Heart Rate: bpm BP: 139 / 73 mmHg Humane Agent: Referring MD: Chavez Cornelius MD Symptoms: PE, POSITIVE COVID Study Quality: Fair ECG Rhythm: Sinus Conclusions: - The left ventricular systolic function is normal. The visually estimated ejection fraction is between 55-60%. - There is moderately increased left ventricular wall thickness. - No obvious valvular pathology seen on this study. Findings Left Ventricle Normal left ventricular cavity size. There is moderately increased left ventricular wall thickness. The left ventricular systolic function is normal. The visually estimated ejection fraction is between 55-60%. There is no evidence of regional wall motion abnormalities. Diastolic function is normal for age. Right Ventricle Normal right ventricular cavity size and systolic function. Atria Both atria are normal in size. Aortic Valve The aortic valve was not well visualized. There is no aortic valve stenosis. There is no aortic valve regurgitation. Mitral Valve The mitral valve appears normal. There is no mitral valve regurgitation. There is no mitral valve stenosis. Pulmonic Valve The pulmonic valve was not well visualized. Tricuspid Valve Normal tricuspid valve structure. There is no tricuspid valve regurgitation. The pulmonary artery systolic pressure is normal. Great Vessels The asc aorta is normal in size. Venous The inferior vena cava was not well visualized. Pericardium/Pleural There is no evidence of pericardial effusion. Prior Study Comparison No significant change compared to prior study dated: 07/31/2017. Recommendations, Care & Conclusions No obvious valvular pathology seen on this study. Measurements 2D Linear Measurements IVSd: 1.40 0.6-0.9/0.6-1.0 cm LVIDd: 3.55 3.9-5.3/4.2-5.9 cm LVIDd Index: 1.58 2.4-3.2/2.2-3.1 cm/m2 LVIDs: 2.42 2.0-3.6 cm LVPWd: 1.40 0.7-1.1 cm Ao Root: 4.00 2.1-3.5 cm LA Diam: 2.50 2.7-3.8/3.0-4.0 cm LAIDs Index: 1.12 1.5-2.3 cm/m2 LV Mass: 219.76 67-162/88-224 g LV Mass Index: 98.11 43-95/49-115 g/m2 LVOT Diam: 2.20 3.0+(-)1.3 cm 2D Systolic Function EF 4C: 59.90 >55% EF 2C: 53.90 >55% EF BiP: 58.70 >55% Mitral Valve MV Pk E: 0.94 MV PK A: 0.90 MV Decel Time: 165.00 E/A: 1.00 E'Lateral: 8.41 E'Medial: 6.77 E/E' Med: 13.90 E/E' Lat: 11.20 PHT: 48.00 MVA PHT: 4.58 Decel [place]: 5.69 Aortic Valve AoV Pk Masood: 1.18 AoV Mn Masood: 0.78 AoV VTI: 0.24 AoV Pk Grad: 6.00 Aov Mn Grad: 3.00 LAZARA Cont.VTI: 2.94 LVOT LVOT Pk Masood: 0.83 LVOT Mn Masood: 0.46 LVOT VTI: 0.19 LVOT Pk Grad: 3.00 LVOT Mn Grad: 1.00 LVOT Diam: 2.20 LVOT Area: 3.80 Diastolic Function MV Pk E: 0.94 MV Pk A: 0.90 E/A: 1.00 E'Medial: 6.77 E/E' Med: 13.90 E' Laterial: 8.41 E/E' Lat: 11.20 Tricuspid Valve TR Pk Masood: 1.59 TR Pk Grad: 10.00 Great Vessels Aorta Ao Root-2D: 4.00 2.0-3.7 cm Ao Asc: 3.50 2.1-3.4 cm Pulmonary Valve PV Pk Masood: 0.79 Peak PV Grad: 2.00 Updated in Other Vendor System with Status of Final Ceferino Sullivan MD electronically signed on 05/11/2020 3:40:34 PM with status of Final
[2020-05-11] MEDS: HYDROcodone/Homat 5/1.5/5 ML 5 ML SYRUP PO ×2 (09:19→14:32)
--- NOTE | 2020-05-11 09:51 | MHC.CM.PN ---
Addendum entered by Tamara Burroughs 05/11/20 11:55: CM ATTEMPTED TO CONTACT PT AGAIN AT THE NUMBER BELOW AND VIA HIS ROOM EXTENSION ([id number]). NO ANSWER AT EITHER NUMBER. Original Note: CM ATTEMPTED TO CONTACT PT ON HIS CELL PHONE ([phone]). A VM WAS LEFT REQUESTING A RETURN CALL. CM THEN ATTEMPTED TO CONTACT PTS /HCP CARLOS KWAN ([phone]). A VM MESSAGE WAS LEFT FOR HER EXPLAINING PTS MEDICARE RIGHTS AND ALSO REQUSTING A RETURN CALL. PTS MEDICARE RIGHTS WILL BE SENT TO HIS HOME VIA CERTIFIED MAIL. CM WILL ATTEMPT TO CONTACT PT AND/OR HIS AT A LATER TIME.
[2020-05-11 12:00] VITALS: BP 146/87; PULSE 84; RESP 20; TEMP 37.1; O2SAT 94
--- NOTE | 2020-05-11 12:20 | P.CNHO_ITS ---
Subjective - Subjective Patient: new to practice Consult date: 05/11/20 Requesting Physician: Panchito. Primary Care Provider: Unknown Physician Medical Summary: DIAGNOSIS: PULMONARY EMBOLISM. HPI - Consult Narrative Reason for consult: Pulmonary embolism. Narrative: Saurav Loyola is a 60 year old gentleman, who presented to the hospital with a chief complaint of shortness of breath. Patient reported that over the previous week, he had been having shortness of breath associated with occasional dry cough. Denied any chest pain nor palpitations. Mentioned that he also had like a flu-like symptoms including body aches chills. Denied any COVID exposures. Denied any numbness tingling. Denied any GI or symptoms. ER course: Per ER team patient COVID-[address] scan showed: Segmental and subsegmental PE along with multifocal pneumonia. Patient was given IV antibiotics and Lovenox and admitted to the hospital for further management. Review of all other systems is negative except mentioned above. Past medical history: Hypertension, hyperlipidemia, diabetes, coronary artery disease, obesity, history of renal calculi, history of chronic back pain, vitamin-D deficiency Review of Systems - Constitutional Reports system reviewed and no additional complaints, except as documented, Reports weakness, Reports weight loss - Eyes Reports system reviewed and no additional complaints, except as documented, Denies blurry vision - ENT Reports system reviewed and no additional complaints, except as documented - Cardiovascular Reports system reviewed and no additional complaints, except as documented, Reports chest pain with activity - Respiratory Reports no additional respiratory complaints, Reports chest congestion, Reports cough - Gastrointestinal Reports system reviewed and no additional complaints, except as documented, Reports abdominal pain, Reports change in bowel habits - Genitourinary Genitourinary: Reports no additional male genitourinary complaints, Denies blood in urine - Musculoskeletal Reports system reviewed and no additional complaints, except as documented, Denies back pain - Integumentary/Breasts Skin/Breast: Reports no additional skin complaints, Denies bleeding lesions - Neurologic Reports system reviewed and no additional complaints, except as documented - Psychiatric Reports system reviewed and no additional complaints, except as documented - Endocrine Reports no additional endocrine complaints - Hematologic/Lymphatic Reports system reviewed and no additional complaints, except as documented - Allergic/Immunologic Reports system reviewed and no additional complaints, except as documented REPLACED BY [facility] Medical History: Medical History (Last Reviewed 05/11/20 @ 16:43 by Cherie Ruiz MD) Back pain CAD (coronary artery disease) Colitis Controlled diabetes mellitus without complication, with long-term current use of insulin Essential hypertension Hyperlipidemia LDL goal <70 Kidney stones Obesity due to excess calories Phimosis Vitamin D deficiency Functional capacity: uses cane/walker Patient : No Family History: Family History (Last Reviewed 05/11/20 @ 16:43 by Cherie Ruiz MD) Father Diabetes Mother No problems noted. Surgical History: Surgical History (Last Reviewed 05/11/20 @ 16:43 by Cherie Ruiz MD) History of colon surgery Hx of rotator cuff surgery Social History: Social History (Last Reviewed 05/11/20 @ 16:43 by Cherie Ruiz MD) Living Situation History: Household Members: Spouse Household Members: Family Housing: Apartment Alcohol History: Alcohol intake: never Advance Directives: Advance Directives Date on File: 05/10/20 Smoking status: Never smoker Home Medications and Allergies Current Medications: Current Medications Generic Name Dose Route Start Last Admin Trade Name Freq PRN Reason Stop Dose Admin Acetaminophen 650 mg 05/09/20 20:02 Acetaminophen Supp 650 Mg Supp.Rect NC Q6H PRN Pain, Mild (Pain Scale 1-3) Azithromycin 500 mg 05/09/20 21:00 05/10/20 21:14 Azithromycin 500 Mg Tablet PO 500 mg Q24H LURDES Administration Benzonatate 100 mg 05/09/20 23:47 05/11/20 07:39 Benzonatate 100 Mg Capsule PO 100 mg TID PRN Administration Cough Dexamethasone 6 mg 05/10/20 09:00 05/11/20 07:37 Dexamethasone 6 Mg Tablet PO 6 mg DAILY LURDES Administration Ezetimibe 10 mg 05/10/20 09:00 05/11/20 07:37 Ezetimibe 10 Mg Tablet PO 10 mg DAILY LURDES Administration Enoxaparin Sodium 115 mg 05/10/20 08:00 05/11/20 07:35 Enoxaparin Sodium 120 Mg/0.8 Ml Syringe 1 mg/kg (115 mg) 115 mg SUBCUT Administration Q12H LURDES Hydrocodone Bit/Homatropine Methylb 5 ml 05/11/20 09:09 05/11/20 09:19 Hydrocodone/Homat 5/1.5/5 Ml 5 Ml Syrup PO 5 ml Q6H PRN Administration Cough Ceftriaxone Sodium 1 gm/ 50 mls @ 100 mls/hr 05/10/20 16:00 05/11/20 08:34 Sodium Chloride IV Infused DAILY LURDES Infusion Insulin Glargine 40 unit 05/11/20 09:00 05/11/20 07:36 Insulin Glargine,Hum.Rec.Anlog 100 Unit/Ml 10 Ml Vial SUBCUT 40 unit DAILY LURDES Administration Insulin Human Lispro 0 unit 05/10/20 11:30 05/11/20 12:08 Insulin Lispro 100 Unit/Ml 3 Ml Vial SUBCUT 10 unit QIDACHS LURDES Administration Protocol Magnesium Hydroxide 30 ml 05/09/20 20:02 Milk Of Magnesia 30 Ml Oral.Susp PO DAILY PRN Constipation Melatonin 3 mg 05/09/20 21:28 05/10/20 23:28 Melatonin 3 Mg Tablet PO 3 mg BEDTIME PRN Administration Insomnia Pharmacy Consult 1 each 05/09/20 18:11 Consult Rx Perform Med Rec MISCELLANE ONCE PRN Consult order Sodium Chloride 3 ml 05/10/20 00:00 05/11/20 07:22 0.9 % Sodium Chloride Flush 3 Ml Syringe IVFLUSH 3 ml QSHIFT LURDES Administration Tamsulosin HCl 0.8 mg 05/09/20 21:00 05/10/20 21:13 Tamsulosin Hcl 0.4 Mg Capsule PO 0.8 mg BEDTIME LURDES Administration Vitamin D 50 mcg 05/10/20 09:00 05/11/20 07:37 Cholecalciferol (Vitamin D3) 25 Mcg Tablet PO 50 mcg DAILY LURDES Administration Home Medications Medication Instructions Recorded Confirmed Type potassium citrate 15 mEq (1,620 15 meq PO BID 02/09/20 05/09/20 History mg) tablet,extended release blood sugar diagnostic #10 ea 02/20/20 02/20/20 History empagliflozin 25 mg tablet 25 mg PO QAM 02/20/20 05/09/20 History hydrochlorothiazide 12.5 mg capsule 12.5 mg PO DAILY 02/20/20 05/09/20 History Allergies Allergy/AdvReac Type Severity Reaction Status Date / Time vancomycin [VANCOMYCIN] Allergy Severe ANAPHYLAXIS Verified 02/09/20 13:37 morphine [MORPHINE] Allergy Intermediate RASH Verified 02/09/20 13:37 Penicillins Allergy Intermediate edema Verified 05/13/20 10:53 penicillin V Allergy Mild unknown Verified 02/09/20 13:37 ibuprofen [From MOTRIN] Allergy Unknown edema Verified 02/20/20 09:38 Motrin AdvReac Unknown Unknown Uncoded 02/09/20 13:37 Physical Exam Vital signs: Vital Signs Temp 97.2 F 05/11/20 08:00 Pulse 73 05/11/20 08:00 Resp 18 05/11/20 08:00 BP 151/83 H 05/11/20 08:00 Pulse Ox 96 05/11/20 08:00 Intake & Output 05/10/20 05/11/20 05/11/20 18:59 06:59 18:59 Intake Total 240 / 650 410 / 650 50 / 50 Balance 240 / 650 410 / 650 50 / 50 Intake: Intake, Oral Amount 240 / 600 360 / 600 Intake, IV Amount 50 / 50 50 / 50 cefTRIAXone sodium 1 gm In 0.9 50 / 50 50 / 50 % Sodium Chloride 50 ml @ 100 mls/hr IV DAILY LURDES Rx#: [id number] Other: Lunch % Eaten 100% Dinner % Eaten 100% Evening Snack % Eaten 100 Number of Unmeasured Voids 1 Urine Bathroom Weight 115.212 kg - Constitutional Present: moderate distress - Routine HEENT Exam Head: Present: normal inspection ENT: Present: mucous membranes moist - Routine Neck Exam Present: supple - Routine Respiratory Exam Present: CTAB - Routine Cardiovascular Exam Cardiovascular: Present: RRR, S1, S2 - Routine Abdominal Exam Present: normal bowel sounds, nontender - Routine Rectal Exam Patient deferred: digital exam - Routine Extremities Exam Present: nontender - Routine Back/Spine/Pelvis Exam Back/Spine: Present: full ROM - Routine Skin Exam Present: intact Hem/Onc Consult Result - Labs CBC & Chem 7: 05/10/20 06:24 05/12/20 09:11 Assessment and Plan (1) Pulmonary embolism Status: Acute This is a pleasant 60-year-old gentleman who presented with shortness of breath./body aches/chills. He has a past medical history of hypertension, hyperlipidemia, diabetes, coronary artery disease, chronic back pain, BPH. He was noted to have COVID-[address] scan also showed segmental and subsegmental PE. Most likely in relationship to the COVID infection. No evidence of right heart strain on the CT scan. Troponins negative. Blood pressure stable. He has been started on Lovenox. PLAN: To Continue Lovenox 1 milligram/kg twice daily. Can switch to an oral NOAC, once he is stable and ready to go home. Continue to monitor. Follow D-dimer is an outpatient. Thank you for the consult, I will follow along. CC: (2) COVID-19 Status: Acute 60-year-old gentleman with COVID-19 pneumonia: PLAN: The patient is on contact and airborne isolation. Decadron 6 mg daily. Ceftriaxone and azithromycin daily, for super added bacterial pneumonitis. Supplemental oxygen p.r.n. Id to follow.
[2020-05-11 12:24] LABS: Glucose, Whole Blood 317 mg/dL (60-115)
[2020-05-11 14:29] VITALS: BMI 39.7
[2020-05-11 16:00] VITALS: BP 122/62; PULSE 90; RESP 19; TEMP 36.3; O2SAT 96
[2020-05-11 16:36] LABS: Glucose, Whole Blood 420 mg/dL (60-115)
--- NOTE | 2020-05-11 16:36 | PC.NURSE ---
P-BS 420 I-dr. Flanagan notified E- will monitor
--- NOTE | 2020-05-11 16:42 | W.PM.IDCN ---
History of Present Illness Data of Consult Service Date: 05/11/20 Requesting physician: Elías Flanagan Primary Care Provider: Unknown Physician HPI Reason for consult: COVID He presents with 11 days shortness of breath and fatigue He is COVID positive He has no nausea or vomiting He is not on oxygen Review of Systems Review of Systems: Yes all other systems are reviewed and are negative PMFSH Past Medical History Medical History Back pain CAD (coronary artery disease) Colitis Controlled diabetes mellitus without complication, with long-term current use of insulin Essential hypertension Hyperlipidemia LDL goal <70 Kidney stones Obesity due to excess calories Phimosis Vitamin D deficiency Family History Family History Father Diabetes Mother No problems noted. Family history: reviewed and not pertinent Surgical History Surgical History History of colon surgery Hx of rotator cuff surgery Social History Social History Household Members: Spouse and Family Housing: Apartment Do you presently have visiting nurse or other home services: No Alcohol intake: never Smoking Status: Never smoker Use of substances other than those prescribed or required for medical reasons: No Currently Displaying Signs/Symptoms of Drug Intoxication Withdrawal: No Have you been hit, kicked, punched, or otherwise hurt by someone within the past year? If so, by whom?: No Do you feel safe in your current relationship?: Yes Is there a partner from a previous relationship who is making you feel unsafe now?: No Are you made to feel afraid or neglected: No Advance Directives: Yes Advance Directives Information Provided: Yes Advance Directives on File: No Advance Directives Date on File: 05/10/20 Do you have thoughts of harming others: None Do you have a plan to hurt others: No Plan Recently lost weight without trying: No Meds Allergies Allergy/AdvReac Type Severity Reaction Status Date / Time vancomycin [VANCOMYCIN] Allergy Severe ANAPHYLAXIS Verified 02/09/20 13:37 morphine [MORPHINE] Allergy Intermediate RASH Verified 02/09/20 13:37 Penicillins Allergy Intermediate edema Unverified 02/20/20 09:38 penicillin V Allergy Mild unknown Verified 02/09/20 13:37 ibuprofen [From MOTRIN] Allergy Unknown edema Verified 02/20/20 09:38 Motrin AdvReac Unknown Unknown Uncoded 02/09/20 13:37 Home Medications Medication Instructions Recorded Confirmed Type potassium citrate 15 mEq (1,620 15 meq PO BID 02/09/20 05/09/20 History mg) tablet,extended release blood sugar diagnostic #10 ea 02/20/20 02/20/20 History empagliflozin 25 mg tablet 25 mg PO QAM 02/20/20 05/09/20 History hydrochlorothiazide 12.5 mg capsule 12.5 mg PO DAILY 02/20/20 05/09/20 History cholecalciferol (vitamin D3) 1 cap PO DAILY 05/09/20 05/09/20 History dulaglutide [Trulicity] 1.5 mg SUBCUT QWEEK 05/09/20 05/09/20 History Physical Exam Vital Signs: Vital Signs: Last Vital Signs Temp 97.3 F 05/11/20 16:00 Pulse 90 05/11/20 16:00 Resp 19 05/11/20 16:00 BP 122/62 05/11/20 16:00 Pulse Ox 96 05/11/20 16:00 Body Mass Index 39.7 Const: General: cooperative Orientation/consciousness: patient oriented x3 HENMT: Head: Yes normal to inspection Mouth: Normal oral and palatal mucosa present Eyes: General: appearance normal, both eyes and all related structures Resp: Effort & Inspection: normal respiratory effort Cardio: Rate: regular rate Rhythm: regular rhythm GI: Palpation (GI): Soft to palpation and nontender : General: Yes no CVA tenderness Back/Spine/Pelvis: Back: no CVA tenderness Skin: General skin exam: no rashes or lesions noted Neuro: General: patient oriented x3 Extrem: General: Yes normal to inspection Assessment and Plan (1) COVID-19: Problem details: He is not on oxygen His symptoms are over 10 days old He has PE and is getting treated Status: Acute Would not give Remdesivir (2) Pulmonary embolism: Status: Acute Results Labs CBC & Chem 7: 05/10/20 06:24 05/10/20 06:24 Microbiology Microbiology Results: Microbiology 05/09/20 14:49 Blood - Venous Blood Culture - Preliminary No growth after 24 hours. 05/09/20 14:44 Blood - Venous Blood Culture - Preliminary No growth after 24 hours.
--- NOTE | 2020-05-11 18:29 | P.PNIM_ITS ---
Subjective Subjective Date of Service: 05/12/20 Interval History: COVID pneumonia Review of Systems Patient has some cough, shortness of breath slowly improving Physical Exam Vital Signs: Vital Signs: Last Vital Signs Temp 97.3 F 05/11/20 16:00 Pulse 90 05/11/20 16:00 Resp 19 05/11/20 16:00 BP 122/62 05/11/20 16:00 Pulse Ox 96 05/11/20 16:00 Body Mass Index 39.7 Cvs: rrr, [id number] , no murmur res: clear to auscultation ,no rhonchii or wheezing abd: no rebound or guarding ,nt, bs present. ext pulses present , no cyanosis neuro: axo3 , nonfocal. Objective Data Current Medications Generic Name Dose Route Start Last Admin Trade Name Freq PRN Reason Stop Dose Admin Acetaminophen 650 mg 05/09/20 20:02 Acetaminophen Supp 650 Mg Supp.Rect [place] Q6H PRN Pain, Mild (Pain Scale 1-3) Azithromycin 500 mg 05/09/20 21:00 05/10/20 21:14 Azithromycin 500 Mg Tablet PO 500 mg Q24H LURDES Administration Benzonatate 100 mg 05/09/20 23:47 05/11/20 07:39 Benzonatate 100 Mg Capsule PO 100 mg TID PRN Administration Cough Dexamethasone 6 mg 05/10/20 09:00 05/11/20 07:37 Dexamethasone 6 Mg Tablet PO 6 mg DAILY LURDES Administration Ezetimibe 10 mg 05/10/20 09:00 05/11/20 07:37 Ezetimibe 10 Mg Tablet PO 10 mg DAILY LURDES Administration Enoxaparin Sodium 115 mg 05/10/20 08:00 05/11/20 07:35 Enoxaparin Sodium 120 Mg/0.8 Ml Syringe 1 mg/kg (115 mg) 115 mg SUBCUT Administration Q12H LURDES Hydrocodone Bit/Homatropine Methylb 5 ml 05/11/20 09:09 05/11/20 14:32 Hydrocodone/Homat 5/1.5/5 Ml 5 Ml Syrup PO 5 ml Q6H PRN Administration Cough Ceftriaxone Sodium 1 gm/ 50 mls @ 100 mls/hr 05/10/20 16:00 05/11/20 08:34 Sodium Chloride IV Infused DAILY [facility] Infusion Insulin Glargine 40 unit 05/11/20 09:00 05/11/20 07:36 Insulin Glargine,Hum.Rec.Anlog 100 Unit/Ml 10 Ml Vial SUBCUT 40 unit DAILY LURDES Administration Insulin Human Lispro 0 unit 05/10/20 11:30 05/11/20 17:30 Insulin Lispro 100 Unit/Ml 3 Ml Vial SUBCUT 12 unit QIDACHS LURDES Administration Protocol Magnesium Hydroxide 30 ml 05/09/20 20:02 Milk Of Magnesia 30 Ml Oral.Susp PO DAILY PRN Constipation Melatonin 3 mg 05/09/20 21:28 05/10/20 23:28 Melatonin 3 Mg Tablet PO 3 mg BEDTIME PRN Administration Insomnia Pharmacy Consult 1 each 05/09/20 18:11 Consult Rx Perform Med Rec MISCELLANE ONCE PRN Consult order Sodium Chloride 3 ml 05/10/20 00:00 05/11/20 17:30 0.9 % Sodium Chloride Flush 3 Ml Syringe IVFLUSH 3 ml QSHIFT LURDES Administration Tamsulosin HCl 0.8 mg 05/09/20 21:00 05/10/20 21:13 Tamsulosin Hcl 0.4 Mg Capsule PO 0.8 mg BEDTIME LURDES Administration Vitamin D 50 mcg 05/10/20 09:00 05/11/20 07:37 Cholecalciferol (Vitamin D3) 25 Mcg Tablet PO 50 mcg DAILY LURDES Administration Labs CBC & Chem 7: 05/10/20 06:24 05/12/20 09:11 Microbiology Microbiology Results: Microbiology 05/09/20 14:49 Blood - Venous Blood Culture - Preliminary No growth after 48 hours. 05/09/20 14:44 Blood - Venous Blood Culture - Preliminary No growth after 48 hours. Assessment and Plan (1) COVID-19: Problem details: He is not on oxygen His symptoms are over 10 days old He has PE and is getting treated Status: Acute Assessment and Plan: 60-year-old male with a past medical history of hypertension, hyperlipidemia, diabetes, coronary artery disease, chronic back pain, BPH presented to the hospital with a chief complaint of shortness of breath/body aches/chills. Noted to have COVID-[address] scan also showed segmental and subsegmental PE. 1.COVID-19 pneumonia: Decadron 6 mg daily Ceftriaxone and azithromycin daily Supplemental oxygen p.r.n. Infectious Disease consult for further recommendations 2.Pulmonary embolism: CT scan showed segmental and subsegmental PE. Spoke to the radiologist by von-who mention there is no evidence of right heart strain on the CT scan. Troponins negative. Blood pressure is stable. Continue Lovenox 1 milligram/kg twice daily. May need to switch tonoac upon discharge Hematology evaluation 3.Hypertension/hyperlipidemia: Continue home lisinopril, statin. 4.Diabetes: , fingersticks are running in 300-400 range Added Lantus back, also fingersticks with sliding scale adjusted coverage. 5.aniyah: Added p.o. hydration free water 250 mL q.6 hour. Will monitor BMP.
[2020-05-11 20:00] VITALS: BP 151/77; PULSE 88; RESP 20; TEMP 36.4; O2SAT 97
[2020-05-11 20:16] LABS: Glucose, Whole Blood 417 mg/dL (60-115)
--- NOTE | 2020-05-11 20:20 | PC.NURSE ---
P-BS 417 i-dr. Cornelius made aware E-will adm insulin as scheduled
[2020-05-11] MEDS: Azithromycin 500 MG TABLET PO (20:29)
[2020-05-11] MEDS: Tamsulosin HCL 0.4 MG CAPSULE 0.8 MG PO (20:29)
[2020-05-11] MEDS: Melatonin 3 MG TABLET PO (20:30)
[2020-05-12] VITALS: BP 152/77; PULSE 93; RESP 20; TEMP 36.4; O2SAT 96
[2020-05-12] MEDS: 0.9 % Sodium Chloride Flush 3 ML SYRINGE IVFLUSH ×4 (00:09→21:44)
[2020-05-12 04:00] VITALS: BP 137/78; PULSE 75; RESP 18; TEMP 36.5; O2SAT 96
[2020-05-12 07:22] LABS: Glucose, Whole Blood 270 mg/dL (60-115)
[2020-05-12 08:00] VITALS: BP 154/82; PULSE 70; RESP 18; TEMP 36.2; O2SAT 97
[2020-05-12] MEDS: Insulin Glargine,Hum.rec.anlog 100 UNIT/ML 10 ML VIAL 45 UNIT SUBCUT (09:26)
[2020-05-12] MEDS: Ezetimibe 10 MG TABLET PO (09:27)
[2020-05-12] MEDS: dexAMETHasone 6 MG TABLET PO (09:27)
[2020-05-12] MEDS: Cholecalciferol (Vitamin D3) 25 MCG TABLET 50 MCG PO (09:27)
[2020-05-12] MEDS: Insulin Lispro 100 UNIT/ML 3 ML VIAL SUBCUT ×7 (09:27→21:36)
[2020-05-12] MEDS: Enoxaparin Sodium 120 MG/0.8 ML SYRINGE 115 MG SUBCUT (09:28)
[2020-05-12] MEDS: cefTRIAXone sodium 1 GM in 0.9 % Sodium Chloride 50 ML IV (09:29)
[2020-05-12] MEDS: HYDROcodone/Homat 5/1.5/5 ML 5 ML SYRUP PO ×2 (09:52→21:38)
[2020-05-12 10:25] LABS: Anion Gap 13 (12-20); Blood Urea Nitrogen 29 mg/dL (9-16); Calcium 8.5 mg/dL (8.4-10.2); Carbon Dioxide 22 mmol/L (22-29); Chloride 106 mmol/L (96-108); Creatinine Clr Calc Pharmacy 67.8; Estimated Glomerular Filt Rate 50; Glucose Random 368 mg/dL (60-115); Potassium 3.9 mmol/L (3.3-5.1); Sodium 137 mmol/L (135-145)
[2020-05-12 11:16] LABS: Glucose, Whole Blood 316 mg/dL (60-115)
[2020-05-12 12:00] VITALS: BP 139/75; PULSE 93; RESP 18; TEMP 36.6; O2SAT 18
[2020-05-12] MEDS: Loratadine 10 MG TABLET PO (13:08)
--- NOTE | 2020-05-12 15:16 | HO.PM.IMPN ---
Subjective Subjective Date of Service: 05/13/20 Interval History: covid pneumonia , pulm embolism Review of Systems Patient says shortness of breath improving but still has aggressive cough. Denies any chest pain or abdominal pain or nausea or vomiting or diarrhea. Physical Exam Vital Signs: Vital Signs: Last Vital Signs Temp 97.8 F 05/12/20 12:00 Pulse 93 05/12/20 12:00 Resp 18 05/12/20 12:00 BP 139/75 05/12/20 12:00 Pulse Ox 18 L 05/12/20 12:00 Body Mass Index 39.7 Physical exam: Constitutional: Noted acute distress Cvs: rrr, [id number] , no murmur res: Fair air entry, slightly diminished at bases ,no rhonchii or wheezing abd: no rebound or guarding ,nt, bs present. ext pulses present , no cyanosis neuro: axo3 , nonfocal. Objective Data Current Medications Generic Name Dose Route Start Last Admin Trade Name Freq PRN Reason Stop Dose Admin Acetaminophen 650 mg 05/09/20 20:02 Acetaminophen Supp 650 Mg Supp.Rect [place] Q6H PRN Pain, Mild (Pain Scale 1-3) Azithromycin 500 mg 05/09/20 21:00 05/11/20 20:29 Azithromycin 500 Mg Tablet PO 500 mg Q24H LURDES Administration Benzonatate 100 mg 05/09/20 23:47 05/11/20 20:30 Benzonatate 100 Mg Capsule PO 100 mg TID PRN Administration Cough Dexamethasone 6 mg 05/10/20 09:00 05/12/20 09:27 Dexamethasone 6 Mg Tablet PO 6 mg DAILY LURDES Administration Ezetimibe 10 mg 05/10/20 09:00 05/12/20 09:27 Ezetimibe 10 Mg Tablet PO 10 mg DAILY LURDES Administration Enoxaparin Sodium 115 mg 05/10/20 08:00 05/12/20 09:28 Enoxaparin Sodium 120 Mg/0.8 Ml Syringe 1 mg/kg (115 mg) 115 mg SUBCUT Administration Q12H LURDES Hydrocodone Bit/Homatropine Methylb 5 ml 05/11/20 09:09 05/12/20 09:52 Hydrocodone/Homat 5/1.5/5 Ml 5 Ml Syrup PO 5 ml Q6H PRN Administration Cough Ceftriaxone Sodium 1 gm/ 50 mls @ 100 mls/hr 05/10/20 16:00 05/12/20 09:29 Sodium Chloride IV 100 mls/hr DAILY LURDES Administration Insulin Glargine 45 unit 05/12/20 09:00 05/12/20 09:26 Insulin Glargine,Hum.Rec.Anlog 100 Unit/Ml 10 Ml Vial SUBCUT 45 unit DAILY LURDES Administration Insulin Human Lispro 0 unit 05/10/20 11:30 05/12/20 13:09 Insulin Lispro 100 Unit/Ml 3 Ml Vial SUBCUT 10 unit QIDACHS LURDES Administration Protocol Insulin Human Lispro 3 unit 05/12/20 11:30 05/12/20 13:10 Insulin Lispro 100 Unit/Ml 3 Ml Vial SUBCUT 3 unit QIDACHS LURDES Administration Loratadine 10 mg 05/12/20 10:30 05/12/20 13:08 Loratadine 10 Mg Tablet PO 10 mg DAILY LURDES Administration Magnesium Hydroxide 30 ml 05/09/20 20:02 Milk Of Magnesia 30 Ml Oral.Susp PO DAILY PRN Constipation Melatonin 3 mg 05/09/20 21:28 05/11/20 20:30 Melatonin 3 Mg Tablet PO 3 mg BEDTIME PRN Administration Insomnia Pharmacy Consult 1 each 05/09/20 18:11 Consult Rx Perform Med Rec MISCELLANE ONCE PRN Consult order Sodium Chloride 3 ml 05/10/20 00:00 05/12/20 09:28 0.9 % Sodium Chloride Flush 3 Ml Syringe IVFLUSH 3 ml QSHIFT LURDES Administration Tamsulosin HCl 0.8 mg 05/09/20 21:00 05/11/20 20:29 Tamsulosin Hcl 0.4 Mg Capsule PO 0.8 mg BEDTIME LURDES Administration Vitamin D 50 mcg 05/10/20 09:00 05/12/20 09:27 Cholecalciferol (Vitamin D3) 25 Mcg Tablet PO 50 mcg DAILY LURDES Administration Labs CBC & Chem 7: 05/10/20 06:24 05/12/20 09:11 Microbiology Microbiology Results: Microbiology 05/09/20 14:49 Blood - Venous Blood Culture - Preliminary No growth after 48 hours. 05/09/20 14:44 Blood - Venous Blood Culture - Preliminary No growth after 48 hours. Assessment and Plan (1) COVID-19: Problem details: He is not on oxygen His symptoms are over 10 days old He has PE and is getting treated Status: Acute Assessment and Plan: 60-year-old male with a past medical history of hypertension, hyperlipidemia, diabetes, coronary artery disease, chronic back pain, BPH presented to the hospital with a chief complaint of shortness of breath/body aches/chills. Noted to have COVID-[address] scan also showed segmental and subsegmental PE. 1.COVID-19 pneumonia: Decadron 6 mg daily procalcitonin levels low 0.13 Supplemental oxygen p.r.n. Infectious Disease consult -no remdesvir since sats seems fine , will also stop antibiotics since procalcitonin now, blood culture negative. Patient still having short of breath with exertion and having aggressive cough, will continue to monitor for today 2.Pulmonary embolism: CT scan showed segmental and subsegmental PE. Spoke to the radiologist Dr. ary longoria-who mention there is no evidence of right heart strain on the CT scan. Troponins negative. Blood pressure is stable. Continue Lovenox 1 milligram/kg twice daily. May need to switch tonoac upon discharge Hematology evaluation 3.Hypertension/hyperlipidemia: Continue home lisinopril, statin. 4.Diabetes: , fingersticks are running in 300-400 range Added Lantus back, also fingersticks with sliding scale adjusted coverage. 5.aniyah: Added p.o. hydration free water 250 mL q.6 hour. Will monitor BMP. (2) Pulmonary embolism: Status: Acute
[2020-05-12 15:53] VITALS: BP 152/77; PULSE 85; RESP 18; TEMP 36.4; O2SAT 96
[2020-05-12 16:48] LABS: Glucose, Whole Blood 360 mg/dL (60-115)
[2020-05-12] MEDS: Sennosides 8.6 MG TABLET 17.2 MG PO (17:56)
[2020-05-12 19:01] VITALS: BP 143/72; PULSE 89; RESP 18; TEMP 36.2; O2SAT 97
[2020-05-12 20:45] LABS: Glucose, Whole Blood 428 mg/dL (60-115)
[2020-05-12] MEDS: Apixaban 5 MG TABLET 10 MG PO (21:37)
[2020-05-12] MEDS: Tamsulosin HCL 0.4 MG CAPSULE 0.8 MG PO (21:37)
[2020-05-12] MEDS: Azithromycin 500 MG TABLET PO (21:38)
[2020-05-12] MEDS: Docusate Sodium 100 MG CAPSULE PO (21:38)
[2020-05-13] VITALS: BP 140/71; PULSE 76; RESP 18; TEMP 36.7; O2SAT 96
[2020-05-13 03:50] VITALS: BP 166/79; PULSE 67; RESP 18; TEMP 36.5; O2SAT 97
[2020-05-13 07:51] VITALS: BP 141/75; PULSE 68; RESP 16; TEMP 36.2; O2SAT 97
[2020-05-13 08:27] LABS: Glucose, Whole Blood 143 mg/dL (60-115)
--- NOTE | 2020-05-13 09:16 | MHC.CM.PN ---
Addendum entered by Tamara Burroughs 05/13/20 09:22: CM also attempted to contact pts /HCP, Nadine Loyola ([phone]). A VM message was left requesting a return call. Original Note: CM attempting to contact pt again using both his cell phone ([phone]) and room extension ([phone]). No answer at either number. CM to speak with pts nurse. Pt will DC on [facility]. Pt has both medicaid and medicare to cover prescriptions however he will be given a 30 free trial coupon to ensure he is able to get his medications.
[2020-05-13] MEDS: 0.9 % Sodium Chloride Flush 3 ML SYRINGE IVFLUSH (09:27)
[2020-05-13] MEDS: Cholecalciferol (Vitamin D3) 25 MCG TABLET 50 MCG PO (09:27)
[2020-05-13] MEDS: Ezetimibe 10 MG TABLET PO (09:27)
[2020-05-13] MEDS: Loratadine 10 MG TABLET PO (09:28)
[2020-05-13] MEDS: dexAMETHasone 6 MG TABLET PO (09:28)
[2020-05-13] MEDS: Insulin Glargine,Hum.rec.anlog 100 UNIT/ML 10 ML VIAL 45 UNIT SUBCUT (09:28)
[2020-05-13] MEDS: Apixaban 5 MG TABLET 10 MG PO (09:28)
[2020-05-13] MEDS: cefTRIAXone sodium 1 GM in 0.9 % Sodium Chloride 50 ML IV (09:29)
[2020-05-13 11:07] VITALS: BP 135/68; PULSE 92; RESP 16; TEMP 36.3; O2SAT 97
[2020-05-13 11:50] LABS: Glucose, Whole Blood 250 mg/dL (60-115)
[2020-05-13] MEDS: Insulin Lispro 100 UNIT/ML 3 ML VIAL SUBCUT ×2 (12:01)
--- NOTE | 2020-05-13 12:04 | P.DS_ITS ---
DS: Providers Provider Date of Service: 05/13/20 Date of admission: 05/09/20 20:02 Primary care physician: Unknown Physician Consults: 05/09/20 20:02 Consult to Infectious Diseases Routine Consulting Provider: Cherie Ruiz Reason for consultation: COVID PNA Has provider been notified: No 05/10/20 09:16 Consult to Hematology / Oncology Routine Consulting Provider: Anabel Ayoub Reason for consultation: Pulm embolism Has provider been notified: No DS: Diagnosis Discharge Diagnosis (1) COVID-19: Status: Acute (2) Pulmonary embolism: Status: Acute DS: Medications Discharge Medications Home Medications: Home Medications Medication Instructions Recorded Confirmed potassium citrate 15 mEq (1,620 15 meq PO BID 02/09/20 05/09/20 mg) tablet,extended release blood sugar diagnostic #10 ea 02/20/20 02/20/20 empagliflozin 25 mg tablet 25 mg PO QAM 02/20/20 05/09/20 hydrochlorothiazide 12.5 mg capsule 12.5 mg PO DAILY 02/20/20 05/09/20 Trulicity 1.5 mg SUBCUT QWEEK 05/09/20 05/09/20 cholecalciferol (vitamin D3) 1 cap PO DAILY 05/09/20 05/09/20 Previous Rx's Medication Instructions Recorded ezetimibe 10 mg tablet 10 mg PO DAILY #90 tab 02/13/20 tamsulosin 0.4 mg capsule 0.8 mg PO BEDTIME #30 cap 03/19/20 lisinopril 40 mg tablet 40 mg PO DAILY #90 tab 03/29/20 apixaban [Eliquis] 5 mg PO BID #70 tab 05/13/20 dexamethasone 6 mg PO DAILY #7 tab 05/13/20 insulin degludec 40 unit SUBCUT DAILY 90 Days #27 ml 05/13/20 omeprazole 20 mg PO DAILY #30 cap 05/13/20 DS: Summary Hospital Course Hospital Course: 60-year-old male with a past medical history of hypertension, hyperlipidemia, diabetes, coronary artery disease, obesity, history of renal calculi, history of chronic back pain, vitamin-D deficiency presented to the hospital with a chief complaint of shortness of breath. Patient reports that over the past week he has been having shortness of breath associated with occasional dry cough. Denies any chest pain palpitations. Mentioned that he also had like a flu-like symptoms including body aches chills. Denies any COVID exposures. Denies any numbness tingling. Denies any GI or symptoms. Review of all other systems is negative except mentioned above ER course: Per ER team patient COVID-[address] scan showed segmental and subsegmental PE along with multifocal pneumonia. Patient was given IV antibiotics and Lovenox and admitted to the hospital for further management. Hospital course: Patient came to the hospital at because shortness of breath and found to have COVID pneumonia/pulmonary embolism: Patient started on IV dexamethasone for COVID infection and subsequently also on Lovenox for pulmonary embolism: his shortness of breath is improved seems much better. Procalcitonin level is low blood culture negative patient does not seem like bacterial component, of antibiotics. Patient is to follow-up out patiently with PCP in 1 week, repeat chest imaging study in 3-4 weeks with PCP to see resolution of pneumonia. Outpatient follow-up with Hematology for pulmonary embolism. Diabetes ferguson: Patient's sugars are running fluctuating in 200-300 range probably steroid use is also contributing: We have increased patient's degludec to 40 units , patient was advised in advanced to comply with diabetic diet and check hemoglobin A1c with PCP in 1 week-further management as per PCP. CKD: Last year patient's creatinine is fluctuating between 1.3 to at least 1.6 range: Monitor renal function outpatient with PCP and further management as per PCP. Consider outpatient Nephro evaluation if needed. Above management discussed with the patient in detail length he understand and in agreement with the above plan, time spent 50 minutes and 50% time spent on counseling. Significant findings: As above. Procedures performed: None. Treatment and response: As above. Complications: None. Time Spent with Patient Time attestation: Total time spent providing and/or coordinating discharge services: Discharge coordination time: Greater than 30 minutes Physical Exam Vital Signs: Vital Signs: Last Vital Signs Temp 97.4 F 05/13/20 11:07 Pulse 92 05/13/20 11:07 Resp 16 05/13/20 11:07 BP 135/68 05/13/20 11:07 Pulse Ox 97 05/13/20 11:07 Body Mass Index 39.7 Physical exam: Constitutional: Not in acute distress, pleasant male. HEENT: Eyes: Anicteric, no discharge Cvs: rrr, [id number] , no murmur res: clear to auscultation ,no rhonchii or wheezing abd: no rebound or guarding ,nt, bs present. ext pulses present , no cyanosis neuro: axo3 , nonfocal. DS: Data Data Completed and Pending Labs on day of discharge: Laboratory Tests 05/09/20 05/09/20 05/09/20 14:44 14:44 14:44 WBC 3.7 L RBC 4.41 L Hgb 13.0 L Hct 36.8 L MCV 83.4 MCH 29.5 MCHC 35.3 RDW 12.0 Plt Count 156 L MPV 10.3 Immature Gran % (Auto) 1.4 H Neut % (Auto) 68.1 Lymph % (Auto) 19.6 L Grimes % (Auto) 9.8 Eos % (Auto) 0.8 Baso % (Auto) 0.3 Lymph # (Auto) 0.7 L Grimes # (Auto) 0.4 Eos # (Auto) 0.0 Baso # (Auto) 0.0 Abs Immat Gran (auto) 0.05 H Absolute Neuts (auto) 2.5 Absolute Nucleated RBC 0.000 Nucleated RBC % (auto) 0.0 PT 12.3 INR 1.0 APTT 30.0 D-Dimer 1244 Sodium 132 L Potassium 3.5 Chloride 103 Carbon Dioxide 20 L Anion Gap 13 BUN 12 Creatinine 1.32 Estim Creat Clear Calc 73.9 Estimated GFR 56 POC Glucose Random Glucose 322 H Estimat Average Glucose Hemoglobin A1c % Lactic Acid Calcium 7.8 L Ferritin 2518 H Total Bilirubin 0.7 Direct Bilirubin 0.3 AST 36 ALT 37 Alkaline Phosphatase 77 Lactate Dehydrogenase 293 H Troponin I High Sens B-Natriuretic Peptide Total Protein 6.2 L Albumin 3.3 L Procalcitonin Coronavirus (PCR) Influenza Type A (PCR) Influenza Type B (PCR) RSV RNA Qual (PCR) 05/09/20 05/09/20 05/09/20 14:44 14:44 14:44 WBC RBC Hgb Hct MCV MCH MCHC RDW Plt Count MPV Immature Gran % (Auto) Neut % (Auto) Lymph % (Auto) Grimes % (Auto) Eos % (Auto) Baso % (Auto) Lymph # (Auto) Grimes # (Auto) Eos # (Auto) Baso # (Auto) Abs Immat Gran (auto) Absolute Neuts (auto) Absolute Nucleated RBC Nucleated RBC % (auto) PT INR APTT D-Dimer Sodium Potassium Chloride Carbon Dioxide Anion Gap BUN Creatinine Estim Creat Clear Calc Estimated GFR POC Glucose Random Glucose Estimat Average Glucose Hemoglobin A1c % Lactic Acid 0.8 Calcium Ferritin Total Bilirubin Direct Bilirubin AST ALT Alkaline Phosphatase Lactate Dehydrogenase Troponin I High Sens 8.4 B-Natriuretic Peptide 18 Total Protein Albumin Procalcitonin 0.13 Coronavirus (PCR) Influenza Type A (PCR) Influenza Type B (PCR) RSV RNA Qual (PCR) 05/09/20 05/09/20 05/09/20 14:45 19:01 19:52 WBC RBC Hgb Hct MCV MCH MCHC RDW Plt Count MPV Immature Gran % (Auto) Neut % (Auto) Lymph % (Auto) Grimes % (Auto) Eos % (Auto) Baso % (Auto) Lymph # (Auto) Grimes # (Auto) Eos # (Auto) Baso # (Auto) Abs Immat Gran (auto) Absolute Neuts (auto) Absolute Nucleated RBC Nucleated RBC % (auto) PT INR APTT D-Dimer Sodium Potassium Chloride Carbon Dioxide Anion Gap BUN Creatinine Estim Creat Clear Calc Estimated GFR POC Glucose 305 H Random Glucose Estimat Average Glucose Hemoglobin A1c % Lactic Acid Calcium Ferritin Total Bilirubin Direct Bilirubin AST ALT Alkaline Phosphatase Lactate Dehydrogenase Troponin I High Sens 9.4 B-Natriuretic Peptide Total Protein Albumin Procalcitonin Coronavirus (PCR) POSITIVE A Influenza Type A (PCR) NEGATIVE Influenza Type B (PCR) NEGATIVE RSV RNA Qual (PCR) NEGATIVE 05/10/20 05/10/20 05/10/20 06:24 06:24 06:24 WBC 3.2 L RBC 4.46 L Hgb 13.0 L Hct 37.9 L MCV 85.0 MCH 29.1 MCHC 34.3 RDW 12.0 Plt Count 171 MPV 10.7 Immature Gran % (Auto) Neut % (Auto) Lymph % (Auto) Grimes % (Auto) Eos % (Auto) Baso % (Auto) Lymph # (Auto) Grimes # (Auto) Eos # (Auto) Baso # (Auto) Abs Immat Gran (auto) Absolute Neuts (auto) Absolute Nucleated RBC 0.000 Nucleated RBC % (auto) 0.0 PT INR APTT D-Dimer Sodium 134 L Potassium 4.7 D Chloride 104 Carbon Dioxide 19 L Anion Gap 16 BUN 20 H D Creatinine 1.41 H Estim Creat Clear Calc 69.2 Estimated GFR 52 POC Glucose Random Glucose 421 H* Estimat Average Glucose TNP Hemoglobin A1c % > 14.0 Lactic Acid Calcium 8.1 L Ferritin Total Bilirubin Direct Bilirubin AST ALT Alkaline Phosphatase Lactate Dehydrogenase Troponin I High Sens B-Natriuretic Peptide Total Protein Albumin Procalcitonin Coronavirus (PCR) Influenza Type A (PCR) Influenza Type B (PCR) RSV RNA Qual (PCR) 05/10/20 05/10/20 05/10/20 09:41 13:37 15:27 WBC RBC Hgb Hct MCV MCH MCHC RDW Plt Count MPV Immature Gran % (Auto) Neut % (Auto) Lymph % (Auto) Grimes % (Auto) Eos % (Auto) Baso % (Auto) Lymph # (Auto) Grimes # (Auto) Eos # (Auto) Baso # (Auto) Abs Immat Gran (auto) Absolute Neuts (auto) Absolute Nucleated RBC Nucleated RBC % (auto) PT INR APTT D-Dimer Sodium Potassium Chloride Carbon Dioxide Anion Gap BUN Creatinine Estim Creat Clear Calc Estimated GFR POC Glucose 320 H 328 H 426 H* Random Glucose Estimat Average Glucose Hemoglobin A1c % Lactic Acid Calcium Ferritin Total Bilirubin Direct Bilirubin AST ALT Alkaline Phosphatase Lactate Dehydrogenase Troponin I High Sens B-Natriuretic Peptide Total Protein Albumin Procalcitonin Coronavirus (PCR) Influenza Type A (PCR) Influenza Type B (PCR) RSV RNA Qual (PCR) 05/10/20 05/10/20 05/11/20 18:31 19:28 07:09 WBC RBC Hgb Hct MCV MCH MCHC RDW Plt Count MPV Immature Gran % (Auto) Neut % (Auto) Lymph % (Auto) Grimes % (Auto) Eos % (Auto) Baso % (Auto) Lymph # (Auto) Grimes # (Auto) Eos # (Auto) Baso # (Auto) Abs Immat Gran (auto) Absolute Neuts (auto) Absolute Nucleated RBC Nucleated RBC % (auto) PT 13.0 INR 1.1 APTT D-Dimer Sodium Potassium Chloride Carbon Dioxide Anion Gap BUN Creatinine Estim Creat Clear Calc Estimated GFR POC Glucose 388 H* 233 H Random Glucose Estimat Average Glucose Hemoglobin A1c % Lactic Acid Calcium Ferritin Total Bilirubin Direct Bilirubin AST ALT Alkaline Phosphatase Lactate Dehydrogenase Troponin I High Sens B-Natriuretic Peptide Total Protein Albumin Procalcitonin Coronavirus (PCR) Influenza Type A (PCR) Influenza Type B (PCR) RSV RNA Qual (PCR) 05/11/20 05/11/20 05/11/20 11:55 16:31 20:07 WBC RBC Hgb Hct MCV MCH MCHC RDW Plt Count MPV Immature Gran % (Auto) Neut % (Auto) Lymph % (Auto) Grimes % (Auto) Eos % (Auto) Baso % (Auto) Lymph # (Auto) Grimes # (Auto) Eos # (Auto) Baso # (Auto) Abs Immat Gran (auto) Absolute Neuts (auto) Absolute Nucleated RBC Nucleated RBC % (auto) PT INR APTT D-Dimer Sodium Potassium Chloride Carbon Dioxide Anion Gap BUN Creatinine Estim Creat Clear Calc Estimated GFR POC Glucose 317 H 420 H* 417 H* Random Glucose Estimat Average Glucose Hemoglobin A1c % Lactic Acid Calcium Ferritin Total Bilirubin Direct Bilirubin AST ALT Alkaline Phosphatase Lactate Dehydrogenase Troponin I High Sens B-Natriuretic Peptide Total Protein Albumin Procalcitonin Coronavirus (PCR) Influenza Type A (PCR) Influenza Type B (PCR) RSV RNA Qual (PCR) 05/12/20 05/12/20 05/12/20 07:08 09:11 11:11 WBC RBC Hgb Hct MCV MCH MCHC RDW Plt Count MPV Immature Gran % (Auto) Neut % (Auto) Lymph % (Auto) Grimes % (Auto) Eos % (Auto) Baso % (Auto) Lymph # (Auto) Grimes # (Auto) Eos # (Auto) Baso # (Auto) Abs Immat Gran (auto) Absolute Neuts (auto) Absolute Nucleated RBC Nucleated RBC % (auto) PT INR APTT D-Dimer Sodium 137 Potassium 3.9 Chloride 106 Carbon Dioxide 22 Anion Gap 13 BUN 29 H Creatinine 1.44 H Estim Creat Clear Calc 67.8 Estimated GFR 50 POC Glucose 270 H 316 H Random Glucose 368 H* Estimat Average Glucose Hemoglobin A1c % Lactic Acid Calcium 8.5 Ferritin Total Bilirubin Direct Bilirubin AST ALT Alkaline Phosphatase Lactate Dehydrogenase Troponin I High Sens B-Natriuretic Peptide Total Protein Albumin Procalcitonin Coronavirus (PCR) Influenza Type A (PCR) Influenza Type B (PCR) RSV RNA Qual (PCR) 05/12/20 05/12/20 05/13/20 16:32 20:27 07:53 WBC RBC Hgb Hct MCV MCH MCHC RDW Plt Count MPV Immature Gran % (Auto) Neut % (Auto) Lymph % (Auto) Grimes % (Auto) Eos % (Auto) Baso % (Auto) Lymph # (Auto) Grimes # (Auto) Eos # (Auto) Baso # (Auto) Abs Immat Gran (auto) Absolute Neuts (auto) Absolute Nucleated RBC Nucleated RBC % (auto) PT INR APTT D-Dimer Sodium Potassium Chloride Carbon Dioxide Anion Gap BUN Creatinine Estim Creat Clear Calc Estimated GFR POC Glucose 360 H* 428 H* 143 H Random Glucose Estimat Average Glucose Hemoglobin A1c % Lactic Acid Calcium Ferritin Total Bilirubin Direct Bilirubin AST ALT Alkaline Phosphatase Lactate Dehydrogenase Troponin I High Sens B-Natriuretic Peptide Total Protein Albumin Procalcitonin Coronavirus (PCR) Influenza Type A (PCR) Influenza Type B (PCR) RSV RNA Qual (PCR) 05/13/20 11:11 WBC RBC Hgb Hct MCV MCH MCHC RDW Plt Count MPV Immature Gran % (Auto) Neut % (Auto) Lymph % (Auto) Grimes % (Auto) Eos % (Auto) Baso % (Auto) Lymph # (Auto) Grimes # (Auto) Eos # (Auto) Baso # (Auto) Abs Immat Gran (auto) Absolute Neuts (auto) Absolute Nucleated RBC Nucleated RBC % (auto) PT INR APTT D-Dimer Sodium Potassium Chloride Carbon Dioxide Anion Gap BUN Creatinine Estim Creat Clear Calc Estimated GFR POC Glucose 250 H Random Glucose Estimat Average Glucose Hemoglobin A1c % Lactic Acid Calcium Ferritin Total Bilirubin Direct Bilirubin AST ALT Alkaline Phosphatase Lactate Dehydrogenase Troponin I High Sens B-Natriuretic Peptide Total Protein Albumin Procalcitonin Coronavirus (PCR) Influenza Type A (PCR) Influenza Type B (PCR) RSV RNA Qual (PCR) Preliminary micro results at discharge 05/09/20 14:49 Blood Culture - Preliminary Blood - Venous No growth after 48 hours. 05/09/20 14:44 Blood Culture - Preliminary Blood - Venous No growth after 48 hours. Discharge Plan Discharge Patient Disposition: Home, Self-Care Referrals: Anabel Ayoub MD [Physician] - (follow up in next 2-3 weeks) Physician,Unknown [Primary Care Provider] - Discharge Medications: New dexamethasone 6 mg tablet 6 mg PO DAILY Qty: 7 RF: 0 omeprazole 20 mg capsule,delayed release(DR/EC) 20 mg PO DAILY Qty: 30 RF: 0 Eliquis 5 mg tablet 5 mg PO BID Qty: 70 RF: 0 Continued ezetimibe 10 mg tablet 10 mg PO DAILY Qty: 90 RF: 1 tamsulosin 0.4 mg capsule 0.8 mg PO BEDTIME Qty: 30 RF: 2 lisinopril 40 mg tablet 40 mg PO DAILY Qty: 90 RF: 1 cholecalciferol (vitamin D3) 50 mcg (2,000 unit) capsule 1 cap PO DAILY RF: 0 Trulicity 1.5 mg/0.5 mL pen injector 1.5 mg subcut QWEEK RF: 0 potassium citrate 15 mEq tablet extended release 15 meq PO BID RF: 0 (DME) blood sugar diagnostic Strip See Rx Instructions ea Not Applicable TID Qty: 10 RF: 0 Jardiance 25 mg tablet 25 mg PO QAM RF: 0 hydrochlorothiazide 12.5 mg capsule 12.5 mg PO DAILY RF: 0 Changed insulin degludec 200 unit/mL (3 mL) insulin pen 40 unit subcut DAILY 90 Days Qty: 27 RF: 0 Discharge Orders: Discharge Order (Routine); Ordered 05/13/20 Ordered By: Elías Flanagan Diet: advance to usual diet and diabetic diet Activity on Discharge: As tolerated Stand Alone Forms: Patient Portal Discharge page Other Ambulatory Orders: Basic Metabolic Panel Fasting (Routine) Timeframe: 1 Week Facility: [facility] - Location: Laboratory Ordered By: Elías Flanagan Visit Report Forms: Patient Portal Discharge page Care Plan Goals: Patient started on IV dexamethasone for COVID infection and subsequently also on Lovenox for pulmonary embolism: his shortness of breath is improved seems much better. Procalcitonin level is low blood culture negative patient does not seem like bacterial component, of antibiotics. Patient is to follow-up out patiently with PCP in 1 week, repeat chest imaging study in 3-4 weeks with PCP to see resolution of pneumonia. Outpatient follow-up with Hematology for pulmonary embolism. Diabetes ferguson: Patient's sugars are running fluctuating in 200-300 range probably steroid use is also contributing: We have increased patient's degludec to 40 units , patient was advised in advanced to comply with diabetic diet and check hemoglobin A1c with PCP in 1 week-further management as per PCP. CKD: Last year patient's creatinine is fluctuating between 1.3 to at least 1.6 range: Monitor renal function outpatient with PCP and further management as per PCP. Consider outpatient Nephro evaluation if needed. Health Concerns: As above. Plan of Treatment: As above.
[2020-05-14 07:48] LABS: Glucose, Whole Blood 420 mg/dL (60-115)
== END 2020-05-13 15:10 | disposition home or self-care (01) | DRG 177 ==
LOC: HO.ED 18:32 → HO.EDOVER 22:25 → HO.IMC 05-10 12:08
PROVIDERS: Physician Assistant; Admitting Provider Hospitalist; Emergency Provider Emergency Medicine; Visit Provider Internal Medicine
DX: U07.1 COVID-19 (principal); I26.94 Multiple subsegmental thrombotic pulmonary emboli without acute cor pulmonale; J12.82 Pneumonia due to coronavirus disease 2019; N17.9 Acute kidney failure, unspecified; E78.5 Hyperlipidemia, unspecified; I25.10 Atherosclerotic heart disease of native coronary artery without angina pectoris; I12.9 Hypertensive chronic kidney disease with stage 1 through stage 4 chronic kidney disease, or unspecified chronic kidney disease; E11.22 Type 2 diabetes mellitus with diabetic chronic kidney disease; N18.9 Chronic kidney disease, unspecified; E66.9 Obesity, unspecified; Z68.39 Body mass index [BMI] 39.0-39.9, adult; Z88.0 Allergy status to penicillin; Z88.6 Allergy status to analgesic agent; Z79.01 Long term (current) use of anticoagulants; Z79.4 Long term (current) use of insulin; Z79.899 Other long term (current) drug therapy
CPT/HCPCS: 0241U; 36415; 71045; 71275; 80048; 80053; 80076; 82728; 82947; 83036; 83605; 83615; 83880; 84145; 84484; 85025; 85027; 85379; 85610; 85730; 87040; 93005; 93306; 94640; 96361; 96365; 96366; 96367; 96372; 96375; 99285; J0696; J1100; J1200; J1650; J3475; J8540; Q9967

== ENCOUNTER → 2020-06-14 09:52 | Outpatient (BNVA) | payer MEDICARE, MEDICAID, SELFPAY | PROVIDERS: Visit Provider Nurse Practitioner Gerontology | DX: Z13.89 Encounter for screening for other disorder (principal) | CPT/HCPCS: Q3014 ==

== ENCOUNTER 2020-06-15 08:17 | Outpatient (REF) | payer MEDICARE, MEDICAID, SELFPAY ==
[2020-06-15 10:16] LABS: Anion Gap 14 (12-20); Blood Urea Nitrogen 21 mg/dL (9-16); Carbon Dioxide 26 mmol/L (22-29); Chloride 103 mmol/L (96-108); Cholesterol 186 mg/dL; Estimated Glomerular Filt Rate 48; Glucose Fasting 273 mg/dL (60-99); HDL Cholesterol 43 mg/dL; LDL Cholesterol Calculated 114 mg/dl; Potassium 4.6 mmol/L (3.3-5.1); Sodium 138 mmol/L (135-145); Triglycerides 148 mg/dL
[2020-06-15 10:24] LABS: Vitamin D 25-OH Total 20.8 ng/mL (>30)
[2020-06-15 10:30] LABS: Creatinine Urine 126.44 mg/dL; Microalbum/Creatinine Ratio Ur 60.8 ug/mg cr
[2020-06-16 05:27] LABS: LDL Cholesterol Direct 119 mg/dL (<100)
== END 2020-06-15 08:18 | disposition home or self-care (01) ==
LOC: HO.LAB 08:17
PROVIDERS: Visit Provider Nurse Practitioner Gerontology
DX: E11.9 Type 2 diabetes mellitus without complications (principal); E55.9 Vitamin D deficiency, unspecified; Z79.4 Long term (current) use of insulin
CPT/HCPCS: 36415; 80048; 80061; 82043; 82306; 83721

== ENCOUNTER → 2020-06-27 09:31 | Outpatient (BNVA) | payer MEDICARE, MEDICAID, SELFPAY | PROVIDERS: PCP Internal Medicine; Visit Provider Nurse Practitioner Gerontology | DX: Z13.89 Encounter for screening for other disorder (principal) | CPT/HCPCS: Q3014 ==

== ENCOUNTER 2020-07-02 09:00 | Outpatient (RCR) | payer MEDICARE, MEDICAID, SELFPAY | END 2020-08-04 11:00 | disposition home or self-care (01) | LOC: HO.PT 09:00 | PROVIDERS: PCP Internal Medicine; Visit Provider Internal Medicine | DX: M75.52 Bursitis of left shoulder (principal) | CPT/HCPCS: 97110; 97112; 97140; 97162; 97535 ==

== ENCOUNTER 2020-09-25 12:53 | Inpatient (IN) | payer MEDICARE, MEDICAID, SELFPAY ==
--- NOTE | ~2020-09-25 | CT_ITS ---
EXAMINATION: CT HEAD WITHOUT CONTRAST (STROKE PROTOCOL) CLINICAL INFORMATION: Stroke protocol. Right-sided weakness, if anesthesia. COMPARISON: None TECHNIQUE: Contiguous axial imaging was performed from the skull base to vertex without intravenous administration of contrast. This CT examination was performed using dose optimization techniques as appropriate, variously including the following: *Automated exposure control *Adjustment of mA and/or kV according to patient size (this includes techniques or standardized protocols for targeted exams where dose is matched to indication/reason for exam; i.e. extremities or head) *Use of iterative reconstruction technique DLP: 909 mGy-cm FINDINGS: There is no intracranial hemorrhage, hematoma, or extra-axial fluid collection. The ventricles are normal in size. There is no hydrocephalus, edema, or mass effect. The anton-white matter differentiation appears symmetric. There is no acute infarct or mass lesion. There is diffuse hypodensity in the both cerebral hemispheres in the periventricular region slightly more prominent in the bifrontal regions. No mass effect or edema seen. There is bibasilar ganglia punctate calcifications and anterior infarcts calcification as well. The calvarium appears intact. There is no pneumocephalus or orbital emphysema. The visualized sinuses and middle ears and mastoid air cells show no significant mucosal thickening. There are no air-fluid levels. CT/CT head for stroke IMPRESSION: No acute intracranial process seen. Extensive chronic small vessel microangiopathy in both cerebral hemispheres, slightly more disproportionate to patient's age. Correlate with clinical exam. This critical result was discussed with Dr. Alen Meléndez at 1:33 PM hours. It was ascertained that the content and urgency of the report was understood at the time of direct communication.
--- NOTE | ~2020-09-25 | XR_ITS ---
EXAMINATION: XR CHEST CLINICAL INFORMATION: Stroke. Weakness. COMPARISON: Previous chest x-ray May 2020 TECHNIQUE: Frontal view of the chest was obtained. FINDINGS: The cardiac and mediastinal contours are stable. There is slight elevation of the left hemidiaphragm similar to previous exam. The lungs are clear. There is no pleural effusion or pneumothorax. There are postsurgical changes to the right shoulder. There are degenerative changes of the spine. XR/XR chest 1V IMPRESSION: No evidence for acute disease in the chest.
--- NOTE | ~2020-09-25 | CT_ITS ---
EXAMINATION: CT ANGIOGRAM NECK WITH CONTRAST CT ANGIOGRAM BRAIN WITH CONTRAST CLINICAL INFORMATION: Large vessel occlusion. COMPARISON: Head CT performed earlier today. TECHNIQUE: Test bolus sequences followed by intravenous administration 100 mL of Omnipaque 350. The contrast bolus was suboptimal. Helical imaging was performed in the axial plane from the thoracic inlet to the skull vertex. Delayed postcontrast imaging of the head was also performed. The data was processed at the biomedical engineering technologist workstation for generation of MIP sequences. Angled MIPs and volume rendered reformatted images were also generated at an offline 3D workstation. Stenoses are assessed in accordance with NASCET criteria unless otherwise indicated. This CT examination was performed using dose optimization techniques as appropriate, variously including the following: *Automated exposure control *Adjustment of mA and/or kV according to patient size (this includes techniques or standardized protocols for targeted exams where dose is matched to indication/reason for exam; i.e. extremities or head) *Use of iterative reconstruction technique DLP: 3015 mGy-cm FINDINGS: Head CT: On the postcontrast images there is a small focus of acute lacunar infarction within the left basal ganglia. Patchy hypoattenuation is seen within the left subinsular region and left frontal lobe which may represent an acute MCA territory ischemia. There is no evidence of gross hemorrhage, mass effect, or midline shift. Patchy hypoattenuation is seen in the cerebral white matter compatible with chronic microangiopathy. The extracranial structures are within normal limits. Neck CTA: The aortic arch was not imaged. The imaged portions of the common carotid arteries are patent. Atheromatous changes are seen at both carotid bifurcations without significant stenosis. The cervical segments of both ICAs are patent. The vertebral arteries are grossly patent. Head CTA: No definite proximal vessel occlusion is seen. No definite thrombus is seen within the left MCA. The anterior and posterior circulations appear intact. No large aneurysm is seen. The dural venous sinuses are patent. Non-vascular findings: The cervical soft tissues are within normal limits. Multilevel degenerative changes are seen within the spine. CT/CT angio head neck stroke IMPRESSION: Contrast bolus was suboptimal. Within these limitations no definite occlusion or high-grade stenosis is seen within the major head or neck arteries. Small acute lacunar infarct in left basal ganglia with other additional patchy areas of hypoattenuation in the left MCA territory likely representing acute infarct. This critical result was discussed with Dr. Meléndez on 09/25/2020 1:59 PM, and it was ascertained that the content and urgency of the report was understood at the time of direct communication.
[2020-09-25 13:00] VITALS: BP 161/77; PULSE 89; RESP 18; TEMP 36.7; O2SAT 98; BMI 41.3
--- NOTE | 2020-09-25 13:08 | ECG_ITS ---
Test Reason : ?STROKE Blood Pressure : / mmHG Vent. Rate : 085 BPM Atrial Rate : 085 BPM P-R Int : 154 ms QRS Dur : 090 ms QT Int : 358 ms P-R-T Axes : 057 041 074 degrees QTc Int : 426 ms Normal sinus rhythm Normal ECG When compared to the previous EKG of No significant changes seen Referred By: Quinton Meléndez Electronically Signed By:Braxton Rosen
[2020-09-25 13:19] LABS: MANUAL DIFF FLAG NO
[2020-09-25 13:21] LABS: Basophils Percent Auto 0.4 % (0-2); Eosinophils Absolute Auto 0.2 X10*3/uL (0.0-0.4); Eosinophils Percent Auto 3.6 % (0-4); Hematocrit 39.6 % (42-52); Hemoglobin 13.6 g/dl (14.0-18.0); Imm Gran Abs Auto 0.02 X10*3/uL (0.00-0.03); Imm Gran Pct Auto 0.4 % (0.0-0.4); Lymphocytes Absolute Auto 1.4 X10*3/uL (1.2-4.9); Lymphocytes Percent Auto 28.9 % (20-40); Mean Corpuscular HGB Conc 34.3 g/dl (31.0-36.0); Mean Corpuscular Hemoglobin 29.6 pg (27.0-33.0); Mean Corpuscular Volume 86.1 fL (80-98); Mean Platelet Volume 10.1 fL (9.4-12.4); Monocytes Absolute Auto 0.5 X10*3/uL (0.1-1.2); Monocytes Percent Auto 10.9 % (2-11); Neutrophils Absolute Auto 2.7 X10*3/uL (2.0-8.3); Neutrophils Percent Auto 55.8 % (45-73); Platelet Count 135 X10*3/uL (160-400); Red Cell Distribution Width 12.7 % (11.0-16.0); White Blood Count 4.8 X10*3/uL (4.8-10.8)
[2020-09-25 13:26] LABS: Prothrombin Time 11.5 SEC (10.8-13.0)
[2020-09-25 13:28] LABS: Prothrombin Time Whole Bld POC 11.3 sec (11.1-13.5); ~PT, ~INR - Anti Coag Clinic 0.9 (0.9-1.1)
[2020-09-25 13:28] LABS: Partial Thromboplastin Time 29.5 SEC (24.1-38.0)
[2020-09-25 13:29] LABS: Glucose, Whole Blood 263 mg/dL (60-115)
[2020-09-25 13:38] LABS: Stroke Lab Use COMPLETE
[2020-09-25 13:57] LABS: Alanine Aminotransferase 26 U/L (0-40); Albumin Level 3.6 g/dL (3.5-5.0); Alkaline Phosphatase 93 U/L (39-117); Anion Gap 13 (12-20); Aspartate Amino Transferase 26 U/L (5-37); Bilirubin Direct 0.2 mg/dL (0.0-0.5); Bilirubin Total 0.7 mg/dL (0.0-1.0); Blood Urea Nitrogen 23 mg/dL (9-16); Calcium 8.9 mg/dL (8.4-10.2); Carbon Dioxide 23 mmol/L (22-29); Chloride 107 mmol/L (96-108); Creatinine Clr Calc Pharmacy 63.9; Estimated Glomerular Filt Rate 46; Glucose Random 288 mg/dL (60-115); Potassium 4.3 mmol/L (3.3-5.1); Sodium 139 mmol/L (135-145); Total Protein 6.6 g/dL (6.5-8.0)
[2020-09-25 14:23] VITALS: BP 154/84; PULSE 85; RESP 18; O2SAT 96
--- NOTE | 2020-09-25 14:59 | MHC.STROKE ---
Addendum entered by Nayely Richardson RN 09/26/20 09:54: I MET WITH PATIENT THIS MORNING TO FOLLOW UP ON STROKE EDUCATION, NIHSS = 2, SLIGHT LEFT DROOP AND DYSARTHRIA. SPEECH THERAPIST WAS IN THE ROOM ASSISTING WITH EXERCISES FOR HIM. THE PATIENT IS MOTIVATED. WE DISCUSSED THE REASON FOR MRI, HE CANNOT FIT IN THE CLOSED SCANNER. I DID RELAY THIS INFORMATION TO DR. DELGADILLO AND HE WILL ORDER AN MRI OP IN AN OPEN SCANNER. THE PATIENT MENTIONED THAT HE WENT O [place] FOR AN OPEN MRI FOR HIS SHOULDER. HE SPEAKS [place] WELL AND DID NOT WANT AN INVESTIGATION DIVISION SERGEANT ALTHOUGH HE DID REQUEST EDUCATIONAL INFORMATION IN [place]. I REVIEWED AND GAVE HIM THE STROKE EDUCATION BOOKLET, INFORMATION ON DIABETES, HIGH BLOOD PRESSURE, HIGH CHOLESTEROL, OBESITY, WHY HE'LL BE TAKING SOME NEW MEDICATIONS. I ANSWERED ALL OF HIS QUESTIONS. DR DELGADILLO AND I DISCUSSED DUAL ANTI-PLATELET THERAPY AND DR. RAMSAY MENTIONED 3 WEEKS. Original Note: EMS PRE-NOTIFIED BUT NO STROKE ALERT , RIGHT SIDED WEAKNESS, DROOP AND DYSARTHRIA. PATIENT LAST KNOWN WELL WAS WHEN HE WENT TO BED AT MIDNIGHT. DISCOVERED WEAKNESS AT 0300 WHEN HE GOT UP TO GO TO THE BATHROOM. ARRIVED AT 1253. OUT OF THE WINDOW FOR TPA, STROKE PROTOCOL ACTIVATED TO R/O LVO (LARGE VESSEL OCCLUSION). CT HEAD, NO BLEED, CTA H/N NO LVO, LEFT BASAL GANGLIA ISCHEMIC STROKE WHICH CORRELATES WITH SUB-CORTICAL AREA FOR SPEECH , MOVEMENT AND BALANCE. RECOMMENDING ASPIRIN. HE HAS A HISTORY OF COVID, PE, ?DVT HE WAS ON XARELATO BUT NO LONGER TAKES THAT, HTN, HLD, OBESITY, CAD, DM ON TRULICITY AND INSULIN. PASSED SWALLOW SCREEN. STROKE EDUCATION INITIATED AND PLAN OF CARE REVIEWED. I REVIEWED CASE WITH DR RAMSAY, HE WILL SEE HIM IN CONSULT.
--- NOTE | 2020-09-25 15:20 | ED_ITS ---
HPI - General Adult General Chief complaint: Weakness Stated complaint: LACK OF COORDIANATION ON R SIDE SINCE 3AM Time Seen by Provider: 09/25/20 13:08 Source: patient Mode of arrival: EMS Limitations: no limitations History of Present Illness HPI narrative: 60-year-old male who presents emergency department for evaluation of right-sided weakness. Patient states that he went to sleep at around midnight. Patient states that he woke up at 3:00 a.m. this morning to go to the bathroom. He states that while he was walking he almost fell since he felt off balance and weak. He then went back to bed. He states that this morning when he was trying to shave using his right hand in his right hand was uncoordinated. He states that this symptom eventually improved. States that he has no difficulty finding words but he states that when he talks his speech sounds different to him. He was concerned that the symptoms persisted therefore came to the emergency department for evaluation. He denied fever, chills, headache, nausea, vomiting, chest pain, shortness of breath, numbness. Related Data Home Medications Medication Instructions Recorded Confirmed potassium citrate 15 mEq (1,620 15 meq PO BID 02/09/20 06/27/20 mg) tablet,extended release blood sugar diagnostic #10 ea 02/20/20 06/27/20 empagliflozin 25 mg tablet 25 mg PO QAM 02/20/20 06/27/20 oxycodone-acetaminophen 5 mg-325 1 tab PO BID PRN 06/27/20 06/27/20 mg tablet pen needle, diabetic 32 gauge x #50 ea 08/26/20 Previous Rx's Medication Instructions Recorded apixaban [Eliquis] 5 mg PO BID #70 tab 05/13/20 omeprazole 20 mg PO DAILY #30 cap 05/13/20 cholecalciferol (vitamin D3) 50 50 mcg PO DAILY #30 cap 05/23/20 mcg (2,000 unit) capsule tamsulosin 0.4 mg capsule 0.8 mg PO BEDTIME 30 Days #60 cap 06/05/20 blood-glucose meter #1 ea 06/19/20 cholecalciferol (vitamin D3) 1,250 1,250 mcg PO QWEEK #4 cap 06/27/20 mcg (50,000 unit) capsule dulaglutide 1.5 mg/0.5 mL 1.5 mg SUBCUT QWEEK #2 ml 06/27/20 subcutaneous pen injector insulin aspart U-100 100 unit/mL 8 unit SUBCUT TID #15 ml 06/27/20 (3 mL) subcutaneous pen insulin degludec 200 unit/mL (3 40 unit SUBCUT DAILY 30 Days #9 ml 06/27/20 mL) subcutaneous pen ezetimibe 10 mg tablet 10 mg PO DAILY #90 tab 08/08/20 pen needle, diabetic 32 gauge x #125 ea 08/26/20 Allergies Allergy/AdvReac Type Severity Reaction Status Date / Time vancomycin [VANCOMYCIN] Allergy Severe ANAPHYLAXIS Verified 06/27/20 10:34 morphine [MORPHINE] Allergy Intermediate RASH Verified 06/27/20 10:34 Penicillins Allergy Intermediate edema Verified 06/27/20 10:34 penicillin V Allergy Mild unknown Verified 06/27/20 10:34 ibuprofen [From MOTRIN] Allergy Unknown edema Verified 06/27/20 10:34 Motrin AdvReac Unknown Unknown Uncoded 06/27/20 10:34 Review of Systems Review of Systems: Yes all other systems are reviewed and are negative [facility] Past Medical History [facility] Narrative: Past medical history: Please see below, the patient was diagnosed with COVID-19 05/2019, he then subsequently developed a DVT and was on Xarelto which he states he completed. The patient states that he occasionally drinks alcohol. He denies drug use. Medical History Back pain CAD (coronary artery disease) Colitis Controlled diabetes mellitus without complication, with long-term current use of insulin Diabetes type 2, uncontrolled Essential hypertension Hyperlipidemia LDL goal <70 Kidney stones Obesity due to excess calories Phimosis Vitamin D deficiency Surgical History History of colon surgery Hx of rotator cuff surgery Family History Family History Father Diabetes Mother No problems noted. Social History Social History Household Members: Spouse and Family Housing: Apartment Do you presently have visiting nurse or other home services: No Alcohol intake: never Advance Directives: Yes Advance Directives Information Provided: No Advance Directives on File: No Advance Directives Date on File: 05/10/20 Physical Exam Vital Signs: Vital Signs: Last Vital Signs Temp 98.0 F 09/25/20 13:00 Pulse 85 09/25/20 14:23 Resp 18 09/25/20 14:23 BP 154/84 H 09/25/20 14:23 Pulse Ox 96 09/25/20 14:23 Body Mass Index 41.3 Const: General: cooperative and healthy appearing Orientation/consciousness: oriented to person and oriented to place Limitations: no limitations HENMT: Head: Yes normal to inspection, Yes normocephalic and Yes atraumatic Ears: external ears normal General nose exam: Normal external nose present Face and sinus: Yes normal facial exam Mouth: Normal oral and palatal mucosa present Throat: Yes posterior oropharynx normal Eyes: Periorbital: periorbital findings normal Eyelids: Yes eyelids normal Conjunctivae: conjunctivae normal Sclerae: sclerae normal Corneas: corneas normal Pupils: Equal, round and reactive pupils present Direct Ophthalmoscopy: normal light reflex Neck: Neck: Yes full ROM, Yes no lymphadenopathy, Yes no meningeal signs, Yes trachea midline and Yes supple Chest: Chest palpation & inspection: normal inspection of the chest and normal palpation of entire chest wall Resp: Effort & Inspection: normal respiratory effort and able to speak in complete sentences Auscultation: clear to auscultation bilaterally Cardio: Rate: regular rate Rhythm: regular rhythm Heart sounds: S1 normal heart sound present, S2 normal heart sound present and no murmurs GI: Inspection: Yes normal to inspection Palpation (GI): Soft to palpation, nontender, no guarding, not rigid and No hepatosplenomegaly present : General: Yes no CVA tenderness Back/Spine/Pelvis: Back: no CVA tenderness Cervical Spine: normal cervical lordosis Thoracic/Lumbar Spine: thoracic and lumbar spine normal to in spection Skin: Lesions: no lesions Rashes: no rashes Wounds: no wounds Neuro: General: oriented to person, oriented to place and no meningeal signs Cranial nerves: Yes CN's II-XII intact bilaterally and Yes Equal, round and reactive pupils present Cognition (Neuro): normal cognition Motor exam (neuro): 5/5 motor strength present throughout Extrem: General: Yes normal to inspection and Yes full ROM Psych: Appearance: well kempt Mental Status: mental status grossly normal Speech and movement: Normal speech and movement present Affect: normal affect Attitude: cooperative Thought process: Normal thought process pre sent Thought content: Normal thought content present NIH Stroke Scale Internal: Initial- Upon Arrival Level of Consciousness: Alert Level of Consciousness Questions: Answers both questions correctly Level of Consciousness Commands: Performs both tasks correctly Best Gaze: Normal Visual: No visual loss Facial Palsy: Normal Motor Arm (Right): No drift Motor Arm (Left): No drift Motor Leg (Right): No drift Motor Leg (Left): No drift Limb Ataxia: Absent Sensory: Normal Best Language: No aphasia Dysarthia: Mild to moderate dysarthria Extinction and Inattention: No abnormality Score: 1 Course Course Course Narrative: 60-year-old male whose last well-known time was midnight who presents to the emergency department for evaluation difficulty walking secondary to weakness which began at 3:00 a.m. patient also noted dysarthric speech and right hand incoordination was trying to shave. He states that his only symptom that he still has his dysarthric speech. The patient was not a tPA candidate since he was outside of the stroke window.Patient's physical examination was unremarkable except for the patient's perceived dysarthric speech. [id number] scan of the brain revealed no acute abnormality however extensive chronic small-vessel microangiopathy and both cerebellar hemispheres. CT angiogram of the patient's head and neck did not reveal any large vessel occlusions however the radiologist felt that there may be a small acute lacunar infarct in the left basal ganglion with other additional patchy areas of hypoattenuation in the left MCA territory likely representing an acute stroke. Laboratory evaluation did reveal slightly low platelet count of a [id number] which is chronic and mild anemia with an H&H of 13.6 and 39.6. He does have an elevated BUN and creatinine of 23 and 1.56, this is chronic. Twelve EKG was unremarkable. I did discuss these findings with the covering neurologist who recommended the patient be admitted for further evaluation. The patient was given aspirin 324 mg orally. I will discuss the patient's presentation with the covering hospitalist. Medical Decision Making Lab Data Result diagrams: 09/25/20 13:15 09/25/20 13:15 Labs: Lab Results 09/25/20 09/25/20 09/25/20 Range/Units 13:12 13:15 13:15 WBC 4.8 (4.8-10.8) X10*3/uL RBC 4.60 (4.60-5.80) X10*6/uL Hgb 13.6 L (14.0-18.0) g/dl Hct 39.6 L (42-52) % MCV 86.1 (80-98) fL MCH 29.6 (27.0-33.0) pg MCHC 34.3 (31.0-36.0) g/dl RDW 12.7 (11.0-16.0) % Plt Count 135 L (160-400) X10*3/uL MPV 10.1 (9.4-12.4) fL Immature Gran % (Auto) 0.4 (0.0-0.4) % Neut % (Auto) 55.8 (45-73) % Lymph % (Auto) 28.9 (20-40) % [place] % (Auto) 10.9 (2-11) % Eos % (Auto) 3.6 (0-4) % Baso % (Auto) 0.4 (0-2) % Lymph # (Auto) 1.4 (1.2-4.9) X10*3/uL [place] # (Auto) 0.5 (0.1-1.2) X10*3/uL Eos # (Auto) 0.2 (0.0-0.4) X10*3/uL Baso # (Auto) 0.0 (0.0-0.2) X10*3/uL Abs Immat Gran (auto) 0.02 (0.00-0.03) X10*3/uL Absolute Neuts (auto) 2.7 (2.0-8.3) X10*3/uL Absolute Nucleated RBC 0.000 (0.0-0.012) X10*3/uL Nucleated RBC % (auto) 0.0 (0.0-0.2) /100WBC PT 11.5 (10.8-13.0) SEC Whole Blood PT (11.1-13.5) sec INR 1.0 (0.9-1.1) Whole Blood INR (0.9-1.1) APTT 29.5 (24.1-38.0) SEC Sodium (135-145) mmol/L Potassium (3.3-5.1) mmol/L Chloride (96-108) mmol/L Carbon Dioxide (22-29) mmol/L Anion Gap (12-20) BUN (9-16) mg/dL Creatinine (0.5-1.4) mg/dL Estim Creat Clear Calc Estimated GFR POC Glucose 263 H (60-115) mg/dL Random Glucose (60-115) mg/dL Calcium (8.4-10.2) mg/dL Total Bilirubin (0.0-1.0) mg/dL Direct Bilirubin (0.0-0.5) mg/dL AST (5-37) U/L ALT (0-40) U/L Alkaline Phosphatase (39-117) U/L Total Creatine Kinase (38-174) U/L Troponin I High Sens (<3.5-35.0) ng/L Total Protein (6.5-8.0) g/dL Albumin (3.5-5.0) g/dL 09/25/20 09/25/20 09/25/20 Range/Units 13:15 13:15 13:24 WBC (4.8-10.8) X10*3/uL RBC (4.60-5.80) X10*6/uL Hgb (14.0-18.0) g/dl Hct (42-52) % MCV (80-98) fL MCH (27.0-33.0) pg MCHC (31.0-36.0) g/dl RDW (11.0-16.0) % Plt Count (160-400) X10*3/uL MPV (9.4-12.4) fL Immature Gran % (Auto) (0.0-0.4) % Neut % (Auto) (45-73) % Lymph % (Auto) (20-40) % [place] % (Auto) (2-11) % Eos % (Auto) (0-4) % Baso % (Auto) (0-2) % Lymph # (Auto) (1.2-4.9) X10*3/uL [place] # (Auto) (0.1-1.2) X10*3/uL Eos # (Auto) (0.0-0.4) X10*3/uL Baso # (Auto) (0.0-0.2) X10*3/uL Abs Immat Gran (auto) (0.00-0.03) X10*3/uL Absolute Neuts (auto) (2.0-8.3) X10*3/uL Absolute Nucleated RBC (0.0-0.012) X10*3/uL Nucleated RBC % (auto) (0.0-0.2) /100WBC PT (10.8-13.0) SEC Whole Blood PT 11.3 (11.1-13.5) sec INR (0.9-1.1) Whole Blood INR 0.9 (0.9-1.1) APTT (24.1-38.0) SEC Sodium 139 (135-145) mmol/L Potassium 4.3 (3.3-5.1) mmol/L Chloride 107 (96-108) mmol/L Carbon Dioxide 23 (22-29) mmol/L Anion Gap 13 (12-20) BUN 23 H (9-16) mg/dL Creatinine 1.56 H (0.5-1.4) mg/dL Estim Creat Clear Calc 63.9 Estimated GFR 46 POC Glucose (60-115) mg/dL Random Glucose 288 H (60-115) mg/dL Calcium 8.9 (8.4-10.2) mg/dL Total Bilirubin 0.7 (0.0-1.0) mg/dL Direct Bilirubin 0.2 (0.0-0.5) mg/dL AST 26 (5-37) U/L ALT 26 (0-40) U/L Alkaline Phosphatase 93 D (39-117) U/L Total Creatine Kinase 200 H (38-174) U/L Troponin I High Sens 6.0 (<3.5-35.0) ng/L Total Protein 6.6 (6.5-8.0) g/dL Albumin 3.6 (3.5-5.0) g/dL ECG Data Interpretation: 1401: Normal sinus rhythm with a rate of 85, normal DE interv al, QRS duration and QTC interval, no ST segment elevation, no ST segment depression, no PACs, no PVCs, this is a normal EKG. Discharge Plan Discharge Clinical Impression: Stroke Qualifiers: CVA mechanism: unspecified Qualified Code(s): I63.9 - Cerebral infarction, unspecified Patient Disposition: Admitted As Inpatient
[2020-09-25] MEDS: Aspirin 81 MG TAB.CHEW 324 MG PO (15:41)
[2020-09-25 16:03] LABS: COVID-19 Test Negative (Negative)
--- NOTE | 2020-09-25 16:26 | MHC.SLORD ---
Speech Language Pathology Order Status: Order for speech consult received. [employer] discussed with MD via [place]. Patient to be evaluated tomorrow morning.
[2020-09-25 16:48] LABS: Glucose, Whole Blood 214 mg/dL (60-115)
--- NOTE | 2020-09-25 18:06 | PM.IMHP ---
History of Present Illness Date of Service: 09/25/20 Chief Complaint: RUE weakness, difficulty speaking History taken in [place] from this 60yo M with DM2, morbid obesity, CKD3, HLD, and history of COVID-19 pneumonia complicated by DVT/PE for which he was anticogulated with rivaroxaban for 3 months. He woke up from sleep at 3:00am to use the bathroom and noticed he felt weak and uncoordinated. He returned to bed, then woke up around 7:00 and noticed that he had difficulty shaving [he is right-hand dominant]. He also noticed that his speech was less fluent than usual; he understands everything and has no word-finding difficulties but his confirms that his speech is not at baseline. He became concerned this afternoon, mostly due to the speech difficulty, as by then, his right hand weakness had resolved In the ED, he was noted to have NIHSS of [address] of the scan was negative for acute abnormality, but showed extensive chronic small-vessel microangiopathy. CTA of the head and neck was negative for large-vessel occlusion but did demonstrate a small acute left basal gangliar infarct with other patchy areas of hypoattenuation in the left MCA territory suspicious for an acute CVA. Neurology was consulted. The patient was outside of the window for tPA. Neurology was consulted and recommend admission for further evaluation. He denies fever, chills, chest pain, dyspnea, visual difficulty, swallowing problems, or any residual motor weakness. Review of Systems Review of Systems: Yes all other systems are reviewed and are negative [facility] Medical History (Updated 09/25/20 @ 18:12 by Spencer Huizar MD) Back pain CAD (coronary artery disease) Colitis Controlled diabetes mellitus without complication, with long-term current use of insulin COVID-19 Diabetes type 2, uncontrolled Essential hypertension Hyperlipidemia LDL goal <70 Kidney stones Obesity due to excess calories Phimosis Pulmonary embolism Vitamin D deficiency Functional capacity: independent ambulation Family History Father Diabetes Mother No problems noted. Pertinent family history: father of CVA Surgical History History of colon surgery Hx of rotator cuff surgery Social History Household Members: Spouse and Family Housing: Apartment Do you presently have visiting nurse or other home services: No Alcohol intake: never Advance Directives: Yes Advance Directives Information Provided: No Advance Directives on File: No Advance Directives Date on File: 05/10/20 Meds Allergies Allergy/AdvReac Type Severity Reaction Status Date / Time vancomycin [VANCOMYCIN] Allergy Severe ANAPHYLAXIS Verified 06/27/20 10:34 morphine [MORPHINE] Allergy Intermediate RASH Verified 06/27/20 10:34 Penicillins Allergy Intermediate edema Verified 06/27/20 10:34 penicillin V Allergy Mild unknown Verified 06/27/20 10:34 ibuprofen [From MOTRIN] Allergy Unknown edema Verified 06/27/20 10:34 Motrin AdvReac Unknown Unknown Uncoded 06/27/20 10:34 Active Medications: Current Medications Generic Name Dose Route Start Last Admin Trade Name Freq PRN Reason Stop Dose Admin Acetaminophen 650 mg 09/25/20 18:02 Acetaminophen 325 Mg Tablet PO Q6H PRN Pain, Mild (Pain Scale 1-3) Atorvastatin Calcium 40 mg 09/25/20 21:00 Atorvastatin Calcium 40 Mg Tablet PO BEDTIME [facility] Ezetimibe 10 mg 09/26/20 09:00 Ezetimibe 10 Mg Tablet PO DAILY [facility] Insulin Human Lispro 0 unit 09/25/20 16:30 Insulin Lispro 100 Unit/Ml 3 Ml Vial SUBCUT QIDACHS [facility] Protocol Ondansetron HCl 4 mg 09/25/20 18:02 Ondansetron Hcl 4 Mg/2 Ml Vial IVPUSH Q8H PRN Nausea and Vomiting Pharmacy Consult 1 each 09/25/20 15:32 Consult Rx Perform Med Rec MISCELLANE ONCE PRN Consult order Pharmacy Consult 1 each 09/25/20 16:00 Consult Rx Perform Med Rec MISCELLANE NOW [facility] Vitamin D mcg 09/26/20 09:00 Cholecalciferol (Vitamin D3) 25 Mcg Tablet PO DAILY [facility] Home Medications Medication Instructions Recorded Confirmed Last Taken Type blood sugar diagnostic #10 ea 02/20/20 06/27/20 Unknown History empagliflozin 25 mg tablet 25 mg PO QAM 02/20/20 09/25/20 09/24/20 History pen needle, diabetic 32 gauge x #50 ea 08/26/20 Unknown History insulin degludec [Tresiba 35 unit SUBCUT DAILY 09/25/20 09/25/20 09/24/20 History FlexTouch U-200] Physical Exam Vital Signs and Narrative: Vital Signs: Last Vital Signs Temp 98.0 F 09/25/20 13:00 Pulse 85 09/25/20 14:23 Resp 18 09/25/20 14:23 BP 154/84 H 09/25/20 14:23 Pulse Ox 96 09/25/20 14:23 Body Mass Index 41.3 Gen: in no acute distress HEENT: sclera anicteric, moist mucus membranes Neck: supple Lungs: clear to auscultation bilaterally Heart: regular rate and rhythm, no murmurs Abd: morbidly obese, soft, non-tender, non-distended Ext: no edema Skin: warm/well-perfused Neuro: alert and oriented x3, mild dysarthria, intact gag reflex, normal strength x 4 extremities, no sensory loss, no dysmetria Psych: appropriate affect Results Labs CBC and Chem 7: 09/25/20 13:15 09/25/20 13:15 Labs: Laboratory Results - last 24 hr 09/25/20 09/25/20 09/25/20 13:12 13:15 13:15 MCV 86.1 MCH 29.6 MCHC 34.3 RDW 12.7 Plt Count 135 L MPV 10.1 Immature Gran % (Auto) 0.4 Neut % (Auto) 55.8 Lymph % (Auto) 28.9 [place] % (Auto) 10.9 Eos % (Auto) 3.6 Baso % (Auto) 0.4 Lymph # (Auto) 1.4 [place] # (Auto) 0.5 Eos # (Auto) 0.2 Baso # (Auto) 0.0 Abs Immat Gran (auto) 0.02 Absolute Neuts (auto) 2.7 Absolute Nucleated RBC 0.000 Nucleated RBC % (auto) 0.0 PT 11.5 Whole Blood PT INR 1.0 Whole Blood INR APTT 29.5 Anion Gap Estim Creat Clear Calc Estimated GFR POC Glucose 263 H Random Glucose Calcium Total Bilirubin Direct Bilirubin AST ALT Alkaline Phosphatase Total Creatine Kinase Troponin I High Sens Total Protein Albumin COVID-19 ([facility]) COVID-19 Clin Com 09/25/20 09/25/20 09/25/20 13:15 13:15 13:24 MCV MCH MCHC RDW Plt Count MPV Immature Gran % (Auto) Neut % (Auto) Lymph % (Auto) [place] % (Auto) Eos % (Auto) Baso % (Auto) Lymph # (Auto) [place] # (Auto) Eos # (Auto) Baso # (Auto) Abs Immat Gran (auto) Absolute Neuts (auto) Absolute Nucleated RBC Nucleated RBC % (auto) PT Whole Blood PT 11.3 INR Whole Blood INR 0.9 APTT Anion Gap 13 Estim Creat Clear Calc 63.9 Estimated GFR 46 POC Glucose Random Glucose 288 H Calcium 8.9 Total Bilirubin 0.7 Direct Bilirubin 0.2 AST 26 ALT 26 Alkaline Phosphatase 93 D Total Creatine Kinase 200 H Troponin I High Sens 6.0 Total Protein 6.6 Albumin 3.6 COVID-19 ([facility]) COVID-19 Clin Com 09/25/20 09/25/20 15:44 16:44 MCV MCH MCHC RDW Plt Count MPV Immature Gran % (Auto) Neut % (Auto) Lymph % (Auto) [place] % (Auto) Eos % (Auto) Baso % (Auto) Lymph # (Auto) [place] # (Auto) Eos # (Auto) Baso # (Auto) Abs Immat Gran (auto) Absolute Neuts (auto) Absolute Nucleated RBC Nucleated RBC % (auto) PT Whole Blood PT INR Whole Blood INR APTT Anion Gap Estim Creat Clear Calc Estimated GFR POC Glucose 214 H Random Glucose Calcium Total Bilirubin Direct Bilirubin AST ALT Alkaline Phosphatase Total Creatine Kinase Troponin I High Sens Total Protein Albumin COVID-19 ([facility]) Negative COVID-19 Clin Com See Note Imaging Radiologist's Impressions: Impressions Chest X-Ray 09/25/20 13:08 IMPRESSION: No evidence for acute disease in the chest. Head CT 09/25/20 13:08 IMPRESSION: No acute intracranial process seen. Extensive chronic small vessel microangiopathy in both cerebral hemispheres, slightly more disproportionate to patient's age. Correlate with clinical exam. This critical result was discussed with Dr. Alen Meléndez at 1:33 PM hours. It was ascertained that the content and urgency of the report was understood at the time of direct communication. Head/Neck CTA 09/25/20 13:09 IMPRESSION: Contrast bolus was suboptimal. Within these limitations no definite occlusion or high-grade stenosis is seen within the major head or neck arteries. Small acute lacunar infarct in left basal ganglia with other additional patchy areas of hypoattenuation in the left MCA territory likely representing acute infarct. This critical result was discussed with Dr. Meléndez on 09/25/2020 1:59 PM, and it was ascertained that the content and urgency of the report was understood at the time of direct communication. Assessment and Plan (1) Stroke: Qualifiers: CVA mechanism: unspecified Qualified Code(s): I63.9 - Cerebral infarction, unspecified Status: Acute 60yo M with DM2, morbid obesity, CKD3, HLD, and history of COVID-19 pneumonia complicated by DVT/PE for which he was anticogulated with rivaroxaban for 3 months, presenting with acute onset of dysarthria and RUE weakness out of tPA window. # acute CVA - admit to IMC, telemetry monitoring, TTE, Neuro consult, PT/OT/TARGET DEVELOPER evaluations, aspirin, high-intensity statin # CKD3 - SCr stable at baseline; avoid nephrotoxins # HLD - statin as above; continue ezetimibe # DM2 - continue basal insulin, add correction-dose lispro, check A1c # morbid obesity - Mediterranean + low-carb diet advised # VTE ppx - LMWH Quality Stroke Does the patient have a stroke diagnosis?: Yes Reason for No Anti-thrombotic by Day Two: N/A - Med Ordered VTE Prior VTE?: Yes VTE Risk Level:: Medical - moderate - high VTE Device Contraindication: N/A - Device Ordered VTE Drug Contraindication: N/A - Med Ordered
[2020-09-25] MEDS: Insulin Lispro 100 UNIT/ML 3 ML VIAL SUBCUT ×2 (18:49→21:24)
[2020-09-25 18:51] VITALS: PULSE 92; RESP 18; O2SAT 97
[2020-09-25 19:00] LABS: Glucose Urine UA 500 MG/DL (NEG); Leukocyte Esterase Urine NEG (NEG); Nitrite Urine NEG (NEG); PH 5.5 (5.0-8.0); Urine Blood TRACE (NEG); Urine Ketones NEG (NEG); Urine Protein NEG (NEG-TRACE)
[2020-09-25 19:01] LABS: Appearance Urine CLEAR; Color Urine YELLOW
[2020-09-25 19:06] LABS: Squamous Epithelial Cell Urine 2+ /LPF; WBC Urine 0-2 /HPF (0-4)
[2020-09-25 19:07] LABS: Calcium Oxalate Crystals Urine TRACE /LPF
--- NOTE | 2020-09-25 19:07 | PC.NURSE ---
ASSUMED CARE OF PT. PT RESTING IN STRETCHER AWAITING FOR ADMISSION. PT IN NAD. WILL CONTINUE TO MONITOR PT.
--- NOTE | 2020-09-25 20:21 | PC.NURSE ---
report given to floor. Pt to floor in NAD.
[2020-09-25 20:43] VITALS: BP 172/92; PULSE 90; RESP 20; TEMP 36.2; O2SAT 98
[2020-09-25 21:13] LABS: Glucose, Whole Blood 220 mg/dL (60-115)
[2020-09-25] MEDS: Atorvastatin Calcium 80 MG TABLET PO (21:23)
[2020-09-25] MEDS: Enoxaparin Sodium 40 MG/0.4 ML SYRINGE SUBCUT (21:24)
[2020-09-26] VITALS: BP 168/94; PULSE 97; RESP 19; TEMP 36.3; O2SAT 96
[2020-09-26 03:48] VITALS: BP 132/87; PULSE 83; RESP 19; TEMP 37; O2SAT 98
[2020-09-26 06:54] LABS: Cholesterol 171 mg/dL; HDL Cholesterol 37 mg/dL
[2020-09-26 07:22] LABS: Glucose, Whole Blood 238 mg/dL (60-115)
[2020-09-26] MEDS: Insulin Lispro 100 UNIT/ML 3 ML VIAL SUBCUT ×2 (07:27→12:15)
[2020-09-26] MEDS: Ezetimibe 10 MG TABLET PO (07:28)
[2020-09-26] MEDS: Aspirin 81 MG TAB.CHEW PO (07:28)
[2020-09-26] MEDS: Cholecalciferol (Vitamin D3) 25 MCG TABLET 50 MCG PO (07:28)
--- NOTE | 2020-09-26 07:30 | CA_ITS ---
Transthoracic Echocardiogram Patient (Last, First, Middle): Saurav Veras, Gender: Male Date of : 1960 Age: 60 Procedure Date: 09/26/2020 Procedure Type: Transthoracic Echocardiogram Location: [facility] [place] Height: 170.18 cm Weight: 119.75 kg BSA: 2.28 m2 Heart Rate: bpm Director Alumni Relations: [facility] Referring MD: Spencer Huizar MD Symptoms: CVA, BUBBLE USED TO R/O PFO Study Quality: Fair ECG Rhythm: Sinus Conclusions: - Normal left ventricular size and systolic function. - The visually estimated ejection fraction is between 55-60%. - E/E prime ratio is between 8 and 15 consistent with indeterminate filling pressures. - Normal right ventricular cavity size and systolic function. - There is no obvious evidence of interatrial shunt by agitated saline in this technically limited study. Findings Left Ventricle Normal left ventricular size and systolic function. There is mildly increased left ventricular wall thickness. The visually estimated ejection fraction is between 55-60%. There is no evidence of regional wall motion abnormalities. Abnormal diastolic function is noted. Spectral Doppler is indicative of an impaired relaxation filling pattern. E/E prime ratio is between 8 and 15 consistent with indeterminate filling pressures. Right Ventricle Normal right ventricular cavity size and systolic function. Atria The left atrium is normal in size. There is no evidence of interatrial shunt by agitated saline. Aortic Valve The aortic valve was not well visualized. Mitral Valve The mitral valve appears normal. Pulmonic Valve The pulmonic valve was not well visualized. Tricuspid Valve Normal tricuspid valve structure and function. There is trace tricuspid valve regurgitation. Tricuspid regurgitation envelope is inadequate for calculation of right ventricular systolic pressure. Indeterminate right atrial pressure. Great Vessels The aorta was not well visualized. Venous The inferior vena cava was not well visualized. Pericardium/Pleural There is no evidence of pericardial effusion. Prior Study Comparison No significant change compared to prior study. Measurements 2D Linear Measurements IVSd: 1.28 0.6-0.9/0.6-1.0 cm LVIDd: 3.72 3.9-5.3/4.2-5.9 cm LVIDs: 2.54 2.0-3.6 cm LVPWd: 1.33 0.7-1.1 cm LV Mass: 209.54 67-162/88-224 g Mitral Valve MV Pk E: 0.57 MV PK A: 0.77 MV Decel Time: 158.67 E/A: 0.74 Decel [place]: 3.61 Diastolic Function MV Pk E: 0.57 MV Pk A: 0.77 E/A: 0.74 Tricuspid Valve TR Pk Masood: 1.62 TR Pk Grad: 10.45 Updated in Other Vendor System with Status of Final Braxton Rosen MD electronically signed on 09/26/2020 1:55:23 PM with status of Final
[2020-09-26 07:50] VITALS: BP 165/91; PULSE 89; RESP 17; TEMP 36.8; O2SAT 98
[2020-09-26 07:50] LABS: Estimated Average Glucose 309 mg/dL; Hemoglobin A1c % 12.4 %
--- NOTE | 2020-09-26 08:47 | PM.NEUROCN ---
History of Present Illness Data of Consult Service Date: 09/26/20 Primary Care Provider: Gianna Roman MD 60 years old man with a history of DVT that was treated with anticoagulation few months ago came to hospital with new onset of unsteadiness and difficulty speaking. It started number of hours before he came to hospital and was not considered a candidate for treatment with intravenous tPA due to timing issues . There was no associated headache visual symptom or seizure-like episode. There was no pain. Review of Systems Review of Systems: No recent cold or flu-like illness seizure or trauma. [facility], [facility] Past Medical History Medical History (Updated 09/26/20 @ 08:53 by Ezio Christian MD) Back pain CAD (coronary artery disease) Colitis Controlled diabetes mellitus without complication, with long-term current use of insulin COVID-19 Diabetes type 2, uncontrolled Essential hypertension Hyperlipidemia LDL goal <70 Kidney stones Obesity due to excess calories Phimosis Pulmonary embolism Vitamin D deficiency Functional capacity: independent ambulation Family History Family History Father Diabetes Mother No problems noted. Surgical History Surgical History History of colon surgery Hx of rotator cuff surgery Social History Social History Household Members: Spouse and Family Housing: Apartment Do you presently have visiting nurse or other home services: No Alcohol intake: never Patient Tobacco Use Status: Never used Tobacco Smoked in Last 30 Days: No Use of substances other than those prescribed or required for medical reasons: No Currently Displaying Signs/Symptoms of Drug Intoxication Withdrawal: No Any prior treatment program specific to substance use: No Do you feel safe in your current relationship?: Yes Is there a partner from a previous relationship who is making you feel unsafe now?: No Are you made to feel afraid or neglected: No Advance Directives: Yes Advance Directives Information Provided: No Advance Directives on File: No Advance Directives Date on File: 05/10/20 Do you have thoughts of harming others: None Do you have a plan to hurt others: No Plan Recently lost weight without trying: No Nutrition Risks: No Nutritional Risk Meds Allergies Allergy/AdvReac Type Severity Reaction Status Date / Time vancomycin [VANCOMYCIN] Allergy Severe ANAPHYLAXIS Verified 06/27/20 10:34 morphine [MORPHINE] Allergy Intermediate RASH Verified 06/27/20 10:34 Penicillins Allergy Intermediate edema Verified 06/27/20 10:34 penicillin V Allergy Mild unknown Verified 06/27/20 10:34 ibuprofen [From MOTRIN] Allergy Unknown edema Verified 06/27/20 10:34 Motrin AdvReac Unknown Unknown Uncoded 06/27/20 10:34 Active Medications: Current Medications Generic Name Dose Route Start Last Admin Trade Name Freq PRN Reason Stop Dose Admin Acetaminophen 650 mg 09/25/20 18:02 Acetaminophen 325 Mg Tablet PO Q6H PRN Pain, Mild (Pain Scale 1-3) Amlodipine Besylate 5 mg 09/26/20 09:00 Amlodipine Besylate 5 Mg Tablet PO DAILY [facility] Protocol Aspirin 81 mg 09/26/20 09:00 09/26/20 07:28 Aspirin 81 Mg Tab.Chew PO 81 mg DAILY [facility] Administration Atorvastatin Calcium 80 mg 09/25/20 21:00 09/25/20 21:23 Atorvastatin Calcium 80 Mg Tablet PO 80 mg BEDTIME [facility] Administration Ezetimibe 10 mg 09/26/20 09:00 09/26/20 07:28 Ezetimibe 10 Mg Tablet PO 10 mg DAILY [facility] Administration Enoxaparin Sodium 40 mg 09/25/20 20:00 09/25/20 21:24 Enoxaparin Sodium 40 Mg/0.4 Ml Syringe SUBCUT 40 mg Q24H [facility] Administration Insulin Human Lispro 0 unit 09/25/20 16:30 09/26/20 07:27 Insulin Lispro 100 Unit/Ml 3 Ml Vial SUBCUT 4 unit QIDACHS [facility] Administration Protocol Ondansetron HCl 4 mg 09/25/20 18:02 Ondansetron Hcl 4 Mg/2 Ml Vial IVPUSH Q8H PRN Nausea and Vomiting Pharmacy Consult 1 each 09/25/20 15:32 Consult Rx Perform Med Rec MISCELLANE ONCE PRN Consult order Pharmacy Consult 1 each 09/25/20 16:00 Consult Rx Perform Med Rec MISCELLANE NOW [facility] Vitamin D 50 mcg 09/26/20 09:00 09/26/20 07:28 Cholecalciferol (Vitamin D3) 25 Mcg Tablet PO 50 mcg DAILY [facility] Administration Home Medications Medication Instructions Recorded Confirmed Last Taken Type blood sugar diagnostic #10 ea 02/20/20 06/27/20 Unknown History empagliflozin 25 mg tablet 25 mg PO QAM 02/20/20 09/25/20 09/24/20 History pen needle, diabetic 32 gauge x #50 ea 08/26/20 Unknown History insulin degludec [Tresiba 35 unit SUBCUT DAILY 09/25/20 09/25/20 09/24/20 History FlexTouch U-200] Physical Exam Vital Signs: Vital Signs: Last Vital Signs Temp 98.3 F 09/26/20 07:50 Pulse 89 09/26/20 07:50 Resp 17 09/26/20 07:50 BP 165/91 H 09/26/20 07:50 Pulse Ox 98 09/26/20 07:50 Body Mass Index 41.3 He was alert and awake with normal spontaneity of speech fluency comprehension and flat affect. There was mild right-sided facial weakness partly also involving forehead. There was no definite pronator drift or focal weakness. Right plantar was equivocal and left was flexor. There was no obvious visual or spatial neglect Results Labs CBC & Chem 7: 09/25/20 13:15 09/25/20 13:15 Labs: Short CBC 09/25/20 Range/Units 13:15 WBC 4.8 (4.8-10.8) X10*3/uL Hgb 13.6 L (14.0-18.0) g/dl Hct 39.6 L (42-52) % Plt Count 135 L (160-400) X10*3/uL BMP 09/25/20 13:15 Sodium 139 Potassium 4.3 Chloride 107 Carbon Dioxide 23 BUN 23 H Creatinine 1.56 H Calcium 8.9 Cardiac Enzymes 09/25/20 Range/Units 13:15 Total Creatine Kinase 200 H (38-174) U/L Liver Function 09/25/20 Range/Units 13:15 Total Bilirubin 0.7 (0.0-1.0) mg/dL Direct Bilirubin 0.2 (0.0-0.5) mg/dL AST 26 (5-37) U/L ALT 26 (0-40) U/L Alkaline Phosphatase 93 D (39-117) U/L Albumin 3.6 (3.5-5.0) g/dL Urine 09/25/20 Range/Units 18:54 Urine Color YELLOW Urine Appearance CLEAR Urine pH 5.5 (5.0-8.0) Ur Specific [place] 1.010 (1.005-1.025) Urine Protein NEG (NEG-TRACE) MG/DL Urine Glucose (UA) 500 H (NEG) MG/DL Small left basal ganglia area ischemic infarction. This seems to be an adjacent area of infection 2. CTA did not reveal any significant stenosis. His EKG did not reveal any significant abnormality and echocardiogram in May was okay. Assessment and Plan (1) Cerebral infarction: Status: Acute 60 years old man with new onset of left middle cerebral artery area infarct. This infarct could be hypertensive but some feature of that was suggestive of embolism. I would recommend a noncontrast MRI of brain to define it further. For now recommendations are to treat him with anti-platelet agent blood pressure control and statin. Depending his MRI findings, he might also require further testing n. Procedures Date of Service Date of Service: 09/26/20
[2020-09-26 09:12] VITALS: BP 165/91; PULSE 89; O2SAT 98
[2020-09-26 10:30] LABS: Anion Gap 14 (12-20); Blood Urea Nitrogen 27 mg/dL (9-16); Calcium 8.9 mg/dL (8.4-10.2); Carbon Dioxide 23 mmol/L (22-29); Chloride 104 mmol/L (96-108); Creatinine Clr Calc Pharmacy 61.1; Estimated Glomerular Filt Rate 44; Glucose Random 271 mg/dL (60-115); LDL Cholesterol Calculated 101 mg/dl; Potassium 4.1 mmol/L (3.3-5.1); Sodium 137 mmol/L (135-145); Triglycerides 167 mg/dL
[2020-09-26] MEDS: amLODIPine Besylate 5 MG TABLET PO (10:43)
[2020-09-26 12:00] VITALS: BP 156/81; PULSE 85; RESP 18; TEMP 36.6; O2SAT 97
[2020-09-26] MEDS: Clopidogrel Bisulfate 75 MG TABLET PO (12:14)
[2020-09-26 12:18] LABS: Glucose, Whole Blood 260 mg/dL (60-115)
--- NOTE | 2020-09-26 14:29 | P.F2F_ITS ---
Service Date Service Date: 09/26/20 Encounter Date of encounter: 09/26/20 Reasons for Services Signs and symptoms assessed: dysarthria R hand dysfunction Reason for fci: neurological assessment, diabetic teaching, medication management, medication treatment and teach disease management Reason for occupational therapy: home safety and mobility, therapeutic exercises, restore joint function, gait/transfer training, assess need for DME, ADL training and energy conservation Reason for speech therapy: speech impairment MD Overseeing Care: Gianna Rmoan Homebound: Leaving the home is medically contraindicated at this time without the asist of a device and/or another person due th the listed conditions above and below. Reason homebound: weakness related to hospital stay and other Homebound supporting statement: VNA for med mgmt, BP/BG monitoring, OT, [employer] Certification: Based on the above findings, I certify that this patient is confined to the home and needs intermittent fci care, physical therapy and/or speech therapy, or continues to need occupational therapy. The patient is under my care, and I have initiated the establishment of the plan of care. The patient will be followed by a physician who will periodically review the plan of care.
--- NOTE | 2020-09-26 14:40 | PM.DS ---
DS: Providers Provider Date of Service: 09/26/20 Date of admission: 09/25/20 18:02 Primary care physician: Gianna Roman MD Consults: 09/25/20 15:51 Consult to Neurology Routine Consulting Provider: [facility] Reason for consultation: acute CVA DS: Diagnosis Discharge Diagnosis (1) Cerebral infarction: Status: Acute (2) Essential hypertension: Status: Acute (3) Uncontrolled diabetes mellitus: Status: Acute DS: Medications Discharge Medications Home Medications: Home Medications Medication Instructions Recorded Confirmed blood sugar diagnostic #10 ea 02/20/20 06/27/20 empagliflozin 25 mg tablet 25 mg PO QAM 02/20/20 09/25/20 pen needle, diabetic 32 gauge x #50 ea 08/26/20 Tresiba FlexTouch U-200 35 unit SUBCUT DAILY 09/25/20 09/25/20 Previous Rx's Medication Instructions Recorded cholecalciferol (vitamin D3) 50 50 mcg PO DAILY #30 cap 05/23/20 mcg (2,000 unit) capsule blood-glucose meter #1 ea 06/19/20 ezetimibe 10 mg tablet 10 mg PO DAILY #90 tab 08/08/20 pen needle, diabetic 32 gauge x #125 ea 08/26/20 amlodipine 5 mg PO DAILY #30 tab 09/26/20 aspirin 81 mg PO DAILY #21 tab 09/26/20 atorvastatin 80 mg PO BEDTIME #30 tab 09/26/20 clopidogrel 75 mg PO DAILY #30 tab 09/26/20 DS: Summary Hospital Course Hospital Course: from my admission history and physical, 09/25/20: History taken in [place] from this 60yo M with DM2, morbid obesity, CKD3, HLD, and history of COVID-19 pneumonia complicated by DVT/PE for which he was anticogulated with rivaroxaban for 3 months. He woke up from sleep at 3:00am to use the bathroom and noticed he felt weak and uncoordinated. He returned to bed, then woke up around 7:00 and noticed that he had difficulty shaving [he is right-hand dominant]. He also noticed that his speech was less fluent than usual; he understands everything and has no word-finding difficulties but his confirms that his speech is not at baseline. He became concerned this afternoon, mostly due to the speech difficulty, as by then, his right hand weakness had resolved In the ED, he was noted to have NIHSS of [address] of the scan was negative for acute abnormality, but showed extensive chronic small-vessel microangiopathy. CTA of the head and neck was negative for large-vessel occlusion but did demonstrate a small acute left basal gangliar infarct with other patchy areas of hypoattenuation in the left MCA territory suspicious for an acute CVA. Neurology was consulted. The patient was outside of the window for tPA. Neurology was consulted and recommend admission for further evaluation. He denies fever, chills, chest pain, dyspnea, visual difficulty, swallowing problems, or any residual motor weakness. The patient was admitted to telemetry. He had no arrhythmias. TTE did not demonstrate intra-atrial shunt or intracardiac thrombus. Neurology was consulted. MRI was recommended, but the patient will not fit in our scanner due to his girth; as such, an outpatient open MRI should be done. Dual antiplatelet therapy with both clopidogrel and aspirin for 3 weeks was recommended, to be folowed by clopidogrel. A high-intensity statin was started. He was started on amlodipine for blood pressure control. He needs better control of diabetes as evidence by A1c of 12.4; consideration should be given to outpatient endocrinology referral for continuous glucose monitor. He should follow up with his primary care doctor in 1 week and with Neurology in 2 weeks. He was discharged home with VNA services for medication management, blood pressure and blood glucose monitoring, occupational therapy for residual hand weakness, and speech therapy for residual dysarthria. Time Spent with Patient Time attestation: Total time spent providing and/or coordinating discharge services: 35 Discharge coordination time: Greater than 30 minutes Quality: Stroke Does the patient have a stroke diagnosis?: Yes Reason for No Anti-thrombotic at DC: N/A - Med Ordered Reason for No Anticoagulant at DC: Not indicated Reason Not Initiating IV-Tpa: Not indicated Reason for No Anti-thrombotic by Day Two: N/A - Med Ordered Reason for No Statin at DC: N/A - Med Ordered Physical Exam Vital Signs: Vital Signs: Last Vital Signs Temp 97.9 F 09/26/20 12:00 Pulse 85 09/26/20 12:00 Resp 18 09/26/20 12:00 BP 156/81 H 09/26/20 12:00 Pulse Ox 97 09/26/20 12:00 Body Mass Index 41.3 Gen: in no acute distress HEENT: sclera anicteric, moist mucus membranes Neck: supple Lungs: clear to auscultation bilaterally Heart: regular rate and rhythm, no murmurs Abd: morbidly obese, soft, non-tender, non-distended Ext: no edema Skin: warm/well-perfused Neuro: alert and oriented x3, mild dysarthria, mild R hand dysfunction, intact gag reflex, normal strength x 4 extremities, no sensory loss, no dysmetria Psych: appropriate affect DS: Data Data Completed and Pending Labs on day of discharge: Laboratory Results WBC 4.8 X10*3/uL (4.8-10.8) 09/25/20 13:15 RBC 4.60 X10*6/uL (4.60-5.80) 09/25/20 13:15 Hgb 13.6 g/dl (14.0-18.0) L 09/25/20 13:15 Hct 39.6 % (42-52) L 09/25/20 13:15 MCV 86.1 fL (80-98) 09/25/20 13:15 MCH 29.6 pg (27.0-33.0) 09/25/20 13:15 MCHC 34.3 g/dl (31.0-36.0) 09/25/20 13:15 RDW 12.7 % (11.0-16.0) 09/25/20 13:15 Plt Count 135 X10*3/uL (160-400) L 09/25/20 13:15 MPV 10.1 fL (9.4-12.4) 09/25/20 13:15 Immature Gran % (Auto) 0.4 % (0.0-0.4) 09/25/20 13:15 Neut % (Auto) 55.8 % (45-73) 09/25/20 13:15 Lymph % (Auto) 28.9 % (20-40) 09/25/20 13:15 Morrison % (Auto) 10.9 % (2-11) 09/25/20 13:15 Eos % (Auto) 3.6 % (0-4) 09/25/20 13:15 Baso % (Auto) 0.4 % (0-2) 09/25/20 13:15 Lymph # (Auto) 1.4 X10*3/uL (1.2-4.9) 09/25/20 13:15 Morrison # (Auto) 0.5 X10*3/uL (0.1-1.2) 09/25/20 13:15 Eos # (Auto) 0.2 X10*3/uL (0.0-0.4) 09/25/20 13:15 Baso # (Auto) 0.0 X10*3/uL (0.0-0.2) 09/25/20 13:15 Abs Immat Gran (auto) 0.02 X10*3/uL (0.00-0.03) 09/25/20 13:15 Absolute Neuts (auto) 2.7 X10*3/uL (2.0-8.3) 09/25/20 13:15 Absolute Nucleated RBC 0.000 X10*3/uL (0.0-0.012) 09/25/20 13:15 Nucleated RBC % (auto) 0.0 /100WBC (0.0-0.2) 09/25/20 13:15 PT 11.5 SEC (10.8-13.0) 09/25/20 13:15 Whole Blood PT 11.3 sec (11.1-13.5) 09/25/20 13:24 INR 1.0 (0.9-1.1) 09/25/20 13:15 Whole Blood INR 0.9 (0.9-1.1) 09/25/20 13:24 APTT 29.5 SEC (24.1-38.0) 09/25/20 13:15 Sodium 137 mmol/L (135-145) 09/26/20 06:04 Potassium 4.1 mmol/L (3.3-5.1) 09/26/20 06:04 Chloride 104 mmol/L (96-108) 09/26/20 06:04 Carbon Dioxide 23 mmol/L (22-29) 09/26/20 06:04 Anion Gap 14 (12-20) 09/26/20 06:04 BUN 27 mg/dL (9-16) H 09/26/20 06:04 Creatinine 1.63 mg/dL (0.5-1.4) H 09/26/20 06:04 Estim Creat Clear Calc 61.1 09/26/20 06:04 Estimated GFR 44 09/26/20 06:04 POC Glucose 260 mg/dL (60-115) H 09/26/20 11:58 Random Glucose 271 mg/dL (60-115) H 09/26/20 06:04 Estimat Average Glucose 309 mg/dL 09/26/20 06:04 Hemoglobin A1c % 12.4 % 09/26/20 06:04 Calcium 8.9 mg/dL (8.4-10.2) 09/26/20 06:04 Total Bilirubin 0.7 mg/dL (0.0-1.0) 09/25/20 13:15 Direct Bilirubin 0.2 mg/dL (0.0-0.5) 09/25/20 13:15 AST 26 U/L (5-37) 09/25/20 13:15 ALT 26 U/L (0-40) 09/25/20 13:15 Alkaline Phosphatase 93 U/L (39-117) D 09/25/20 13:15 Total Creatine Kinase 200 U/L (38-174) H 09/25/20 13:15 Troponin I High Sens 6.0 ng/L (<3.5-35.0) 09/25/20 13:15 Total Protein 6.6 g/dL (6.5-8.0) 09/25/20 13:15 Albumin 3.6 g/dL (3.5-5.0) 09/25/20 13:15 Triglycerides 167 mg/dL 09/26/20 06:04 Cholesterol 171 mg/dL 09/26/20 06:04 LDL Cholesterol, Calc 101 mg/dl 09/26/20 06:04 HDL Cholesterol 37 mg/dL 09/26/20 06:04 Urine Color YELLOW 09/25/20 18:54 Urine Appearance CLEAR 09/25/20 18:54 Urine pH 5.5 (5.0-8.0) 09/25/20 18:54 Ur Specific [place] 1.010 (1.005-1.025) 09/25/20 18:54 Urine Protein NEG MG/DL (NEG-TRACE) 09/25/20 18:54 Urine Glucose (UA) 500 MG/DL (NEG) H 09/25/20 18:54 Urine Ketones NEG MG/DL (NEG) 09/25/20 18:54 Urine Blood TRACE (NEG) 09/25/20 18:54 Urine Nitrite NEG (NEG) 09/25/20 18:54 Ur Leukocyte Esterase NEG (NEG) 09/25/20 18:54 Urine RBC 1-4 /HPF (0) 09/25/20 18:54 Urine WBC 0-2 /HPF (0-4) 09/25/20 18:54 Ur Squamous Epith Cells 2+ /LPF 09/25/20 18:54 Calcium Oxalate Crystal TRACE /LPF 09/25/20 18:54 Urine Bacteria NONE /LPF 09/25/20 18:54 COVID-19 (NASEEM) Negative (Negative) 09/25/20 15:44 COVID-19 Clin Com See Note 09/25/20 15:44 Impressions Chest X-Ray 09/25/20 13:08 IMPRESSION: No evidence for acute disease in the chest. Head CT 09/25/20 13:08 IMPRESSION: No acute intracranial process seen. Extensive chronic small vessel microangiopathy in both cerebral hemispheres, slightly more disproportionate to patient's age. Correlate with clinical exam. This critical result was discussed with Dr. Alen Meléndez at 1:33 PM hours. It was ascertained that the content and urgency of the report was understood at the time of direct communication. Head/Neck CTA 09/25/20 13:09 IMPRESSION: Contrast bolus was suboptimal. Within these limitations no definite occlusion or high-grade stenosis is seen within the major head or neck arteries. Small acute lacunar infarct in left basal ganglia with other additional patchy areas of hypoattenuation in the left MCA territory likely representing acute infarct. This critical result was discussed with Dr. Meléndez on 09/25/2020 1:59 PM, and it was ascertained that the content and urgency of the report was understood at the time of direct communication. TTE 09/26/20 - Normal left ventricular size and systolic function. - The visually estimated ejection fraction is between 55-60%. - E/E prime ratio is between 8 and 15 consistent with indeterminate filling pressures. - Normal right ventricular cavity size and systolic function. - There is no obvious evidence of interatrial shunt by agitated saline in this technically limited study. Discharge Plan Discharge Patient Disposition: Home Health Service Discharge Diagnosis: stroke, hypertension, uncontrolled diabetes Referrals: [facility] [Other] - 1 Day (discharged home with new referral [facility] for nrsuing for diagnosis assessment, sighn symptom management and detailed plan of action, reinforcement to family of insulin administration to assit patient with some fine motor difficultities and sc lovenox adninistration , home ot and home speech thearpy for word finding difficulities pcp family to call for post hospital discharge follow up tyransportation family ) Gianna Villalobos MD [Primary Care Provider] - 1 Week Discharge Medications: New atorvastatin 80 mg Tablet 80 mg PO BEDTIME Qty: 30 RF: 0 clopidogrel 75 mg Tablet 75 mg PO DAILY Qty: 30 RF: 0 amlodipine 5 mg Tablet 5 mg PO DAILY Qty: 30 RF: 0 aspirin 81 mg Tablet,Chewable 81 mg PO DAILY Qty: 21 RF: 0 Continued cholecalciferol (vitamin D3) 50 mcg (2,000 unit) capsule 50 mcg PO DAILY Qty: 30 RF: 5 (DME) blood-glucose meter [Contour Meter] Kit See Rx Instructions .ROUTE .MEDSUPPLY Qty: 1 RF: 0 ezetimibe 10 mg tablet 10 mg PO DAILY Qty: 90 RF: 0 (DME) pen needle, diabetic [BD Ultra-Fine Blanche Pen Needle] 32 gauge x 5/32 needle See Rx Instructions .ROUTE .MEDSUPPLY Qty: 50 RF: 0 (DME) pen needle, diabetic [BD Ultra-Fine Blanche Pen Needle] 32 gauge x 5/32 needle See Rx Instructions .ROUTE .MEDSUPPLY Qty: 125 RF: 6 Tresiba FlexTouch U-200 200 unit/mL (3 mL) insulin pen 35 unit subcut DAILY RF: 0 (DME) blood sugar diagnostic Strip See Rx Instructions ea Not Applicable TID Qty: 10 RF: 0 Jardiance 25 mg tablet 25 mg PO QAM RF: 0 Discharge Orders: Discharge Order (Routine); Ordered 09/26/20 Ordered By: Spencer Huizar Diet: diabetic diet and low salt diet Activity on Discharge: As tolerated Stand Alone Forms: Patient Portal Discharge page Other Ambulatory Orders: MR head/brain wo con (Routine) Timeframe: 1 Week Facility: [facility] - Location: MRI Ordered By: Spencer Huizar Care Plan Goals: resolution of R hand problems and difficulty speaking prevention of future strokes and other vascular events prevention of complications from diabetes Health Concerns: acute stroke hypertension uncontrolled diabetes Plan of Treatment: take BOTH aspirin 81 mg daily AND clopidogrel 75 mg daily for 3 weeks [21 days], then continue with clopidogrel ALONE 75 mg daily take atorvastatin 80 mg at bedtime take amlodipine 5 mg daily work on controlling your blood glucose follow a Mediterranean low-carb diet see your primary care doctor in 1 week schedule brain MRI at an open MRI facility see neurologist in 2 weeks: Ezio Christian MD [facility] [address], [address] [place] [address] Assessment: as above Patient Instructions: Ischemic Stroke (DC)
--- NOTE | 2020-09-26 15:20 | MHC.CM.PN ---
NURSING RESERVOIR ENGINEERING CONSULTANT NOTE ELECTRONIC MEDICAL RECORD REVIEWED ALONG WITH CASE DISCUSSED WITH STAFF NURSE, AND PHYSICAL THERAPIST AND OCCUPATIONAL THERAPIST AND SPEECH THERAPIST MET WITH PATIENT PER DOCUMENTATION PATIENT BY PHYSICAL THERAPIST PATIENT IS INDEPENDENT IN HIS ADLS AND AMBULATION AND WILL NOT NEED HOME PHYSICAL THERAPY AT DISCHARGE PER THERAPISTS, HE WAS EVALUATED BY OCCUPATIONAL THERAPIST ANS HAS SOME RIGHT ARM WEAKNESS, AND FINE MOTOR IMPAIRMENT, AND FINE MOTOR IMPAIRMENT. PER TIGER TEXTED CASE DISCUSSED WITH HOSP[IALIST . PATIENT WILL BE DISCHARGED HOME TODAY WHERE HE LIVES WITH HIS AN INSULIN ADMINISTRATION TO FAMILY TO ASSIT WITHD SON, HE WILL NOT BE ON LOVENOX HE WILL BE ON ASPIRIN. REACHED OUT VIA TIGER TEXT TO NANCY YOON TO INFORM HER PATIENT WILL BE DISCHARGED HOME TOFDAY AND WITH WHAT NURSING AGENCY DISCHARGE PLAN MEDICARE IMM EXPLAINED AND GIVEN TO HIM WITH ATTACHED NAME CARD. [facility] - FOR NURSING (DIAGNOSIS ASSESSMENT, REINFORCEMENT TEACHING TO PATIENT FAMILY REGARDING SIGN SYMPTOMS AND DETAILED ACTION PLAN , WELL REINFORCEMENT FOR INSULIN ADMINISTRATION ASSISTANCE. MEDICATION RECONCILATION , HOME OCCUPATIONAL THERAPY FOR R-ARM WEAKNESS AND FINE MOTOR IMPAIRMENT , SPEECH FOR DIFFICULT WORD FINDING. CONFIRMED WITH INTAKE NURSE START DATE ,FOR 09/27/20 PCP PATIENTS FAMILY TO CALL FOR POST HOSPITAL DISCHARGE FOLLOW UP TRANSPORTATION FAMILY
== END 2020-09-26 16:30 | disposition home health service (06) | DRG 65 ==
LOC: HO.ED 15:34 → HO.EDOVER 19:05 → HO.S3 19:13
PROVIDERS: Admitting Provider Family Medicine; Emergency Provider Emergency Medicine Emergency Medical Services; PCP Internal Medicine; Visit Provider Family Medicine
DX: I63.412 Cerebral infarction due to embolism of left middle cerebral artery (principal); G81.91 Hemiplegia, unspecified affecting right dominant side; Z68.41 Body mass index [BMI] 40.0-44.9, adult; I25.10 Atherosclerotic heart disease of native coronary artery without angina pectoris; Z87.442 Personal history of urinary calculi; E66.01 Morbid (severe) obesity due to excess calories; R29.701 NIHSS score 1; E78.5 Hyperlipidemia, unspecified; N18.30 Chronic kidney disease, stage 3 unspecified; E11.22 Type 2 diabetes mellitus with diabetic chronic kidney disease; Z20.822 Contact with and (suspected) exposure to COVID-19; Z86.16 Personal history of COVID-19; Z86.711 Personal history of pulmonary embolism; Z88.0 Allergy status to penicillin; Z88.5 Allergy status to narcotic agent; Z88.6 Allergy status to analgesic agent; Z79.02 Long term (current) use of antithrombotics/antiplatelets; Z79.82 Long term (current) use of aspirin; Z79.899 Other long term (current) drug therapy
CPT/HCPCS: 36415; 70450; 70496; 70498; 71045; 80048; 80061; 80076; 81001; 81003; 82550; 82947; 83036; 84484; 85025; 85610; 85730; 87635; 92522; 93005; 93308; 97162; 97166; 99285; J1650

== ENCOUNTER 2020-09-28 15:11 | Inpatient (IN) | payer MEDICARE, MEDICAID, SELFPAY ==
--- NOTE | ~2020-09-28 | CT_ITS ---
EXAMINATION: CT HEAD WITHOUT CONTRAST CLINICAL INFORMATION: Follow-up CVA evolution. COMPARISON: CT brain 09/28/2020 TECHNIQUE: Contiguous axial imaging was performed from the skull base to vertex without intravenous administration of contrast. This CT examination was performed using dose optimization techniques as appropriate, variously including the following: *Automated exposure control *Adjustment of mA and/or kV according to patient size (this includes techniques or standardized protocols for targeted exams where dose is matched to indication/reason for exam; i.e. extremities or head) *Use of iterative reconstruction technique DLP: 823 mGy-cm FINDINGS: Again visualized is a left hypodense area in the left centrum semiovale extending to the left basal ganglia, similar to previous exam. Infarction in evolution seen. There is no acute intra-axial or extra axial bleed. The lateral ventricles are symmetrical in size and configuration without enlargement. There is no new abnormal attenuation within the brain parenchyma. The osseous structures and soft tissues are normal. The mastoid air cells and visualized portions of the paranasal sinuses are well aerated. CT/CT head/brain wo con IMPRESSION: Redemonstrated is a left centrum semiovale hypodensity/infarct in evolution extending to the left basal ganglia similar to previous study. There is no new acute infarct or acute bleed seen.
--- NOTE | ~2020-09-28 | CT_ITS ---
EXAMINATION: CTA NECK WITH CONTRAST (STROKE) CTA BRAIN WITH CONTRAST (STROKE) CLINICAL INFORMATION: Suspect acute stroke. Assess for major vessel occlusion. Please call report. COMPARISON: Concurrent CT scan of the head 09/28/2020. CT head and CT angiogram head and neck 09/25/2020. TECHNIQUE: CTA of the head and neck was performed in the axial plane from the mediastinum to the skull vertex using 70 mL Omnipaque 350 intravenous contrast. A delayed post contrast CT scan of the head was obtained. The degree of stenosis is based off NASCET criteria. Additional reformatted multiplanar images including maximum intensity projection MIP images are generated on the CT workstation. This CT examination was performed using dose optimization techniques as appropriate, variously including the following: *Automated exposure control *Adjustment of mA and/or kV according to patient size (this includes techniques or standardized protocols for targeted exams where dose is matched to indication/reason for exam; i.e. extremities or head) *Use of iterative reconstruction technique DLP: 1759 mGy-cm FINDINGS: CT Head: The study redemonstrates an area of low attenuation in the left basal ganglia and left subinsular region, which was seen on prior imaging. It may be slightly more prominent compared to the study of 09/25/2020. Elsewhere, there is no evidence of acute intracranial hemorrhage or territorial infarction. No abnormal mass-effect or midline shift is seen. [place] to white matter differentiation is well preserved. No extra-axial fluid collections are identified. There is no abnormal enhancement. The ventricles are normal in size. The osseous structures and soft tissues are normal. The mastoid air cells and visualized portions of the paranasal sinuses are well-aerated. CTA Neck: There is a classic configuration of the arch of the aorta. The origins of the great vessels of the neck appear normal. There is some beam hardening artifact from intravascular contrast which obscures the proximal cervical vessels. Distal to this the common carotid arteries bilaterally are patent with uniform caliber bilaterally. There are mild atheromatous calcifications at the left carotid bifurcation. The cervical internal carotid arteries are patent bilaterally. The origins of the vertebral arteries appear normal. The left vertebral artery is slightly dominant. Both vertebral arteries are patent throughout the cervical course extending intradurally. Nonvascular: The great vessels of the neck are widely patent. The subclavian arteries appear normal bilaterally. The common carotid arteries have normal caliber. The carotid bifurcations bilaterally appear normal. The internal carotid arteries in the neck bilaterally have uniform and normal caliber. The origins of both vertebral arteries are well seen and appear normal. Both vertebral arteries are widely patent and demonstrate good opacification throughout their cervical course. The left vertebral artery is slightly dominant. Nonvascular: The visualized lung haile are well-aerated. There is no cervical lymphadenopathy. The patient is edentulous in the mandible and the maxilla. There are surgical tacks in the right humerus. There are mild spondylitic changes in the cervical spine. CTA Head: There are atheromatous calcifications of the cavernous internal carotid arteries, but the vessels are patent. There is mild prominence of the infundibula of the ophthalmic arteries bilaterally. The intracranial internal carotid termini appear normal bilaterally. The proximal right middle cerebral artery is slightly narrowed caliber proximally, but more distally appears patent. There is mild narrowing at the M1 M2 region of the right middle cerebral artery. On the left the M1 segment appears patent with uniform caliber. A sylvian fissure branch of the left middle cerebral artery has slightly irregular caliber, but does not appear to be occluded. Overall, there is good arborization of the middle cerebral arteries bilaterally. The anterior cerebral and the anterior communicating artery is appear normal. No aneurysms are demonstrated. In the posterior circulation, the left vertebral artery is dominant. The vertebral arteries intradurally have normal caliber. The basilar artery appears normal. There is irregularity at the bilateral P1-P2 regions of the posterior cerebral arteries, more severe on the right. The dural venous sinuses opacify normally. CT/CT angio head neck stroke IMPRESSION: CT head and neck: 1. The study redemonstrates areas of low-attenuation in the left basal ganglia and left subinsular region, which may be consistent with evolving infarcts. This could be further evaluated with MRI scan of the brain if no contraindication. 2. There are no acute bleeds. There are no masses or areas of abnormal enhancement. 3. There are sequelae of right rotator cuff surgery. CTA head and neck: 1. In the neck, there are no significant flow limiting stenoses. The carotid and vertebral arteries are patent bilaterally. 2. Intracranially, there are no vascular occlusions. There is irregularity of the right M1/M2 region of the right middle cerebral artery, and there is irregularity of the sylvian branch of the left middle cerebral artery. There is irregularity of the bilateral posterior cerebral arteries. 2. There are no aneurysms or vascular malformations. This critical result was discussed with Loulou Felipe NP by telephone on 09/28/2020 at 3:45 PM and it was ascertained that the content and urgency of the report was understood at the time of direct communication.
--- NOTE | ~2020-09-28 | XR_ITS ---
EXAMINATION: XR CHEST CLINICAL INFORMATION: Right-sided weakness. COMPARISON: 09/25/2020 portable chest. TECHNIQUE: Frontal view of the chest was obtained. FINDINGS: Low lung volumes are seen with mild elevation of the left hemidiaphragm. The lungs are clear. The heart and mediastinal structures are unremarkable. XR/XR chest 1V IMPRESSION: No acute cardiopulmonary process.
--- NOTE | ~2020-09-28 | CT_ITS ---
EXAMINATION: CT HEAD WITHOUT CONTRAST (STROKE PROTOCOL) CLINICAL INFORMATION: Stroke protocol. Weakness COMPARISON: CT brain 09/25/2020 TECHNIQUE: Contiguous axial imaging was performed from the skull base to vertex without intravenous administration of contrast. This CT examination was performed using dose optimization techniques as appropriate, variously including the following: *Automated exposure control *Adjustment of mA and/or kV according to patient size (this includes techniques or standardized protocols for targeted exams where dose is matched to indication/reason for exam; i.e. extremities or head) *Use of iterative reconstruction technique DLP: 817 mGy-cm FINDINGS: There is no acute acute intra-axial, extra-axial bleed, masses or collection midline shift. There is known acute now subacute infarction left centrum semiovale extending to the left posterior internal capsule, slightly denser and larger compared to study from 09/25/2020. The ventricles are symmetrical but slightly enlarged. There is diffuse periventricular hypodensity in both cerebral hemispheres. The calvarium appears intact. There is no pneumocephalus or orbital emphysema. The visualized sinuses and middle ears and mastoid air cells show no significant mucosal thickening. There are no air-fluid levels. CT/CT head for stroke IMPRESSION: Old left centrum semiovale infarct extending to the left posterior internal capsule, slightly larger and denser. Also area of hypodensity seen in subinsular and left deep frontal lobe, stable. No new areas of acute infarct or acute bleed seen. This critical result was discussed with Loulou Blanchard at 3:40 PM on 09/28/2020. It was ascertained that the content and urgency of the report was understood at the time of direct communication.
--- NOTE | ~2020-09-28 | MR_ITS ---
EXAMINATION: MRI OF THE BRAIN WITHOUT CONTRAST CLINICAL INFORMATION: Acute CVA. COMPARISON: CT scan of the head earlier 09/29/2020. TECHNIQUE: MRI of the brain was attempted using routine sequences without contrast. The patient refused to continue after 2 sequences were obtained and could not complete the study. FINDINGS: There is a small area of restricted diffusion in the left basal ganglia, which has corresponding FLAIR hyperintense signal. No other acute infarcts are demonstrated. No gradient images were obtained to assess for hemorrhage, but there does not appear to be any hemorrhage. The ventricles and sulci are slightly commensurately prominent consistent with mild diffuse volume loss. In addition to the changes in the left basal ganglia there are scattered areas of hyperintense FLAIR signal in the periventricular and subcortical white matter, which are most consistent with chronic microvascular ischemic changes. There have been bilateral lens extractions. MR/MR head/brain wo con IMPRESSION: 1. Limited MRI scan of the brain, but demonstrating an area of acute infarction in the left basal ganglia. 2. There is diffuse volume loss and there are chronic microvascular ischemic changes. 3. This critical result was discussed with Hussein Bañuelos at 7:00pm on 09/29/2020 and it was ascertained that the content and urgency of the report was understood at the time of direct communication.
--- NOTE | ~2020-09-28 | US_ITS ---
EXAMINATION: US VENOUS ULTRASOUND WITH DOPPLER LOWER EXTREMITY, BILATERAL CLINICAL INFORMATION: Pain. COMPARISON: None TECHNIQUE: Ultrasound of the deep veins is performed from the hip to the calf with compression sonography and color and pulse Doppler assessment. Spectral analysis with color-flow imaging is performed. FINDINGS: RIGHT: There is normal venous compression and respiratory variation and augmented flow. The visualized common femoral vein, superficial femoral vein, profunda femoral vein, popliteal vein, and the trifurcation region shows no evidence of deep venous thrombosis. There is no significant popliteal fossa cyst. LEFT: There is normal venous compression and respiratory variation and augmented flow. The visualized common femoral vein, superficial femoral vein, profunda femoral vein, popliteal vein, and the trifurcation region shows no evidence of deep venous thrombosis. There is no significant popliteal fossa cyst. If the patient's symptoms persist, followup ultrasound in 5 days 7 days might be of value to exclude proximal propagation from a non-visualized calf vein. US/US venous duplex LE BI IMPRESSION: No DVT demonstrated in the bilateral lower extremity.
--- NOTE | 2020-09-28 15:14 | ED_ITS ---
HPI - Weakness General Chief complaint: Stroke Stated complaint: ?stroke Time Seen by Provider: 09/28/20 15:51 Source: patient and EMS Mode of arrival: EMS Limitations: physical limitation History of Present Illness HPI Narrative: 60-year-old male with known lacunar infarct presents via EMS for right-sided hemiparesis, slurred speech, with suspected worsening stroke symptoms. Right-sided hemiparesis started at noon yesterday. MD Complaint: focal weakness Onset (ago): hour(s) (18 hours) Duration: constant Location: RUE, right hand and RLE Migration: none Severity: severe Severity scale (1-10): 10 Quality: numbness Related Data Home Medications Medication Instructions Recorded Confirmed empagliflozin 25 mg tablet 25 mg PO QAM 02/20/20 09/28/20 Tresiba FlexTouch U-200 35 unit SUBCUT DAILY 09/25/20 09/28/20 dulaglutide [Trulicity] 1.5 mg SUBCUT MO 09/28/20 09/28/20 hydrochlorothiazide 2 cap PO DAILY 09/28/20 09/28/20 magnesium 200 mg PO DAILY 09/28/20 09/28/20 potassium citrate 1 tab PO BID 09/28/20 09/28/20 Previous Rx's Medication Instructions Recorded cholecalciferol (vitamin D3) 50 50 mcg PO DAILY #30 cap 05/23/20 mcg (2,000 unit) capsule ezetimibe 10 mg tablet 10 mg PO DAILY #90 tab 08/08/20 amlodipine 5 mg PO DAILY #30 tab 09/26/20 aspirin 81 mg PO DAILY #21 tab 09/26/20 atorvastatin 80 mg PO BEDTIME #30 tab 09/26/20 clopidogrel 75 mg PO DAILY #30 tab 09/26/20 Allergies Allergy/AdvReac Type Severity Reaction Status Date / Time vancomycin [VANCOMYCIN] Allergy Severe ANAPHYLAXIS Verified 06/27/20 10:34 morphine [MORPHINE] Allergy Intermediate RASH Verified 06/27/20 10:34 Penicillins Allergy Intermediate edema Verified 06/27/20 10:34 penicillin V Allergy Mild unknown Verified 06/27/20 10:34 ibuprofen [From MOTRIN] Allergy Unknown edema Verified 06/27/20 10:34 Motrin AdvReac Unknown Unknown Uncoded 06/27/20 10:34 Review of Systems Review of Systems: Constitutional: No Weight loss, No Fever, No Chills, No Night Sweats, No Fatigue, No Malaise ENT/Mouth: Positive facial droop, No Hearing loss, No Ear Pain, No Nasal Congestion, No Sinus Pain, No Hoarseness, No sore throat, No Rhinorrhea, No Swallowing Difficulty Eyes: No Eye Pain, No Swelling, No Redness, No Foreign Body, No Discharge, No Vision Changes Cardiovascular: No Chest Pain, No SOB, No Dyspnea on Exertion, No Orthopnea, No Edema, No Palpitations Respiratory: No Cough, No Sputum, No Wheezing, No Smoke Exposure, No Dyspnea Gastrointestinal: No Nausea, No Vomiting, No Diarrhea, No Constipation, No abdominal Pain, No Hematochezia, No Melena Genitourinary: no irregular bleeding, No Dysuria, No Urinary Frequency, No Hematuria, No Urinary Incontinence, No Urgency, No Flank Pain, No Urinary Flow Changes, No Hesitancy Musculoskeletal: Positive right hemiparesis, No joint pain, No Myalgias, No Joint Swelling Skin: No Skin Lesions, No rash Neuro: Positive right-sided Weakness, positive Numbness, No Paresthesias, No Loss of Consciousness, No Dizziness, No Headache Psych: No Anxiety/Panic, No Depression, No SI/HI/AH/VH, No Social Issues Heme/Lymph: No Bruising, No Bleeding,No Lymphadenopathy Endocrine: No Polyuria, No Polydipsia, No Temperature Intolerance Yes all other systems are reviewed and are negative COUNTS INCLUDE 234 BEDS AT THE [facility] Past Medical History Attestation statement: The following information was validated with the patient. Source: old records reviewed Medical History (Updated 09/28/20 @ 16:29 by Spencer Huizar MD) Back pain CAD (coronary artery disease) Colitis Controlled diabetes mellitus without complication, with long-term current use of insulin COVID-19 Diabetes type 2, uncontrolled Essential hypertension Hyperlipidemia LDL goal <70 Kidney stones Obesity due to excess calories Phimosis Pulmonary embolism Stroke Uncontrolled diabetes mellitus Vitamin D deficiency Surgical History History of colon surgery Hx of rotator cuff surgery Family History Family History Father Diabetes Mother No problems noted. Social History Social History Household Members: Family Housing: House Do you presently have visiting nurse or other home services: Yes Alcohol intake: never Patient Tobacco Use Status: Never used Tobacco Use of substances other than those prescribed or required for medical reasons: No Have you been hit, kicked, punched, or otherwise hurt by someone within the past year? If so, by whom?: No Do you feel safe in your current relationship?: Yes Is there a partner from a previous relationship who is making you feel unsafe now?: No Are you made to feel afraid or neglected: No Advance Directives: Yes Advance Directives on File: Yes Advance Directives Date on File: 05/10/20 Do you have thoughts of harming others: None Do you have a plan to hurt others: No Plan Recently lost weight without trying: No Eating poorly because of decreased appetite: No Nutrition Risks: Difficulty swallowing and On aspiration precautions Poor oral hygiene: No service: No Current occupational status: disabled Physical Exam Vital Signs: Vital Signs: Last Vital Signs Temp 97.5 F 09/28/20 19:01 Pulse 98 09/28/20 19:01 Resp 18 09/28/20 19:01 BP 123/60 09/28/20 19:01 Pulse Ox 95 09/28/20 19:01 Body Mass Index 38.7 Appearance: Alert. Oriented X3. Severe distress. Head: Normal external exam. Normocephalic. Atraumatic. No Yen signs noted. No raccoon eyes noted Eyes: Right-sided facial droop, PERRLA. EOMI. Conjunctiva and sclera normal. Left Eyelids normal. ENT: TM's Normal. Pharynx normal. Uvula midline. Moist mucous membranes. Neck: Normal inspection. Neck supple. No adenopathy. No meningeal signs. CVS: Normal heart rate and rhythm. Heart sound normal. No murmurs noted. Pulses equal to all extremities. Respiratory: No respiratory distress. Painless inspiration. Breath sounds normal. No wheezes/rales/rhonchi noted. Chest nontender. No accessory muscle usage noted or decreased air movement noted. Abdomen: Soft and nontender. Bowel sounds normal in all 4 quadrants. No distention noted. No organomegaly noted. No visible injury noted. Back: No CVA tenderness. Full range of motion noted. Skin: Skin warm and dry. Normal skin color. Normal skin turgor. No rashes/lesions/lacerations noted. Extremities: No edema noted, please refer to stroke scale. Neuro: cranial nerves 2-12 intact, positive focal neural deficits, please refer to stroke scale NIH Stroke Scale Internal: Initial- Upon Arrival Time: 15:10 Level of Consciousness: Alert Level of Consciousness Questions: Answers both questions correctly Level of Consciousness Commands: Performs both tasks correctly Best Gaze: Normal Visual: No visual loss Facial Palsy: Partial paralysis Motor Arm (Right): No movement Motor Arm (Left): No drift Motor Leg (Right): No movement Motor Leg (Left): Some effort against gravity Limb Ataxia: Present in two limbs Sensory: Mild to moderate sensory loss Best Language: Mild to moderate aphasia Dysarthia: Mild to moderate dysarthria Extinction and Inattention: No abnormality Score: 17 Course Course Course Narrative: 3:10 p.m. patient presents via EMS, right-sided hemiparesis with significant facial droop. Was diagnosed with stroke on Thursday, symptoms worsened, states over the past 18 hours he has been unable to move his right arm or leg. Patient is on Plavix and aspirin. 3:[address] a complete. Patient does not fit in the MRI machine per sales service coordinator, will DC MRI order at this time. 3:[address] Toure radiology for CT without contrast, no new occlusion however it is suspected that current vessel occlusion to the lacunar infarct in the left basal ganglia is larger than on Thursday 3:[address] Christian, will continue Plavix and aspirin and admit. 3:[address] Luz for CTA of head and neck, multiple vessel involvement both right and left-sided. MDM - Weakness MDM Narrative Medical decision making narrative: Stroke Differential Diagnosis Differential diagnosis: Likely UTI, anemia, sepsis and dehydration Medical Records Attestation: I reviewed the patient's medical records. Lab Data Attestation: I reviewed the patient's lab results. Result diagrams: 09/28/20 15:21 09/28/20 15:21 Labs: Lab Results 09/28/20 09/28/20 09/28/20 Range/Units 15:21 15:21 15:21 WBC 5.8 (4.8-10.8) X10*3/uL RBC 4.80 (4.60-5.80) X10*6/uL Hgb 14.2 (14.0-18.0) g/dl Hct 41.7 L (42-52) % MCV 86.9 (80-98) fL MCH 29.6 (27.0-33.0) pg MCHC 34.1 (31.0-36.0) g/dl RDW 12.8 (11.0-16.0) % Plt Count 148 L (160-400) X10*3/uL MPV 9.9 (9.4-12.4) fL Immature Gran % (Auto) 0.3 (0.0-0.4) % Neut % (Auto) 55.3 (45-73) % Lymph % (Auto) 30.2 (20-40) % [place] % (Auto) 10.4 (2-11) % Eos % (Auto) 3.5 (0-4) % Baso % (Auto) 0.3 (0-2) % Lymph # (Auto) 1.7 (1.2-4.9) X10*3/uL [place] # (Auto) 0.6 (0.1-1.2) X10*3/uL Eos # (Auto) 0.2 (0.0-0.4) X10*3/uL Baso # (Auto) 0.0 (0.0-0.2) X10*3/uL Abs Immat Gran (auto) 0.02 (0.00-0.03) X10*3/uL Absolute Neuts (auto) 3.2 (2.0-8.3) X10*3/uL Absolute Nucleated RBC 0.000 (0.0-0.012) X10*3/uL Nucleated RBC % (auto) 0.0 (0.0-0.2) /100WBC PT 11.8 (10.8-13.0) SEC Whole Blood PT (11.1-13.5) sec INR 1.0 (0.9-1.1) Whole Blood INR (0.9-1.1) APTT 31.3 (24.1-38.0) SEC Sodium 140 (135-145) mmol/L Potassium 4.0 (3.3-5.1) mmol/L Chloride 106 (96-108) mmol/L Carbon Dioxide 24 (22-29) mmol/L Anion Gap 14 (12-20) BUN 24 H (9-16) mg/dL Creatinine 1.63 H (0.5-1.4) mg/dL Estim Creat Clear Calc 59.0 Estimated GFR 44 POC Glucose (60-115) mg/dL Random Glucose 191 H (60-115) mg/dL Calcium 9.3 (8.4-10.2) mg/dL Magnesium 1.7 (1.6-2.6) mg/dL Total Bilirubin 0.4 (0.0-1.0) mg/dL Direct Bilirubin 0.2 (0.0-0.5) mg/dL AST 30 (5-37) U/L ALT 27 (0-40) U/L Alkaline Phosphatase 90 (39-117) U/L Troponin I High Sens (<3.5-35.0) ng/L Total Protein 6.9 (6.5-8.0) g/dL Albumin 3.9 (3.5-5.0) g/dL Lipase 32 (8-78) U/L Ethyl Alcohol mg/dL COVID-19 ([facility]) (Negative) COVID-19 Clin Com 09/28/20 09/28/20 09/28/20 Range/Units 15:21 15:21 15:21 WBC (4.8-10.8) X10*3/uL RBC (4.60-5.80) X10*6/uL Hgb (14.0-18.0) g/dl Hct (42-52) % MCV (80-98) fL MCH (27.0-33.0) pg MCHC (31.0-36.0) g/dl RDW (11.0-16.0) % Plt Count (160-400) X10*3/uL MPV (9.4-12.4) fL Immature Gran % (Auto) (0.0-0.4) % Neut % (Auto) (45-73) % Lymph % (Auto) (20-40) % [place] % (Auto) (2-11) % Eos % (Auto) (0-4) % Baso % (Auto) (0-2) % Lymph # (Auto) (1.2-4.9) X10*3/uL [place] # (Auto) (0.1-1.2) X10*3/uL Eos # (Auto) (0.0-0.4) X10*3/uL Baso # (Auto) (0.0-0.2) X10*3/uL Abs Immat Gran (auto) (0.00-0.03) X10*3/uL Absolute Neuts (auto) (2.0-8.3) X10*3/uL Absolute Nucleated RBC (0.0-0.012) X10*3/uL Nucleated RBC % (auto) (0.0-0.2) /100WBC PT (10.8-13.0) SEC Whole Blood PT (11.1-13.5) sec INR (0.9-1.1) Whole Blood INR (0.9-1.1) APTT (24.1-38.0) SEC Sodium (135-145) mmol/L Potassium (3.3-5.1) mmol/L Chloride (96-108) mmol/L Carbon Dioxide (22-29) mmol/L Anion Gap (12-20) BUN (9-16) mg/dL Creatinine (0.5-1.4) mg/dL Estim Creat Clear Calc Estimated GFR POC Glucose (60-115) mg/dL Random Glucose (60-115) mg/dL Calcium (8.4-10.2) mg/dL Magnesium (1.6-2.6) mg/dL Total Bilirubin (0.0-1.0) mg/dL Direct Bilirubin (0.0-0.5) mg/dL AST (5-37) U/L ALT (0-40) U/L Alkaline Phosphatase (39-117) U/L Troponin I High Sens 5.7 (<3.5-35.0) ng/L Total Protein (6.5-8.0) g/dL Albumin (3.5-5.0) g/dL Lipase (8-78) U/L Ethyl Alcohol < 10 mg/dL COVID-19 ([facility]) Negative (Negative) COVID-19 Clin Com See Note 09/28/20 09/28/20 Range/Units 15:21 15:22 WBC (4.8-10.8) X10*3/uL RBC (4.60-5.80) X10*6/uL Hgb (14.0-18.0) g/dl Hct (42-52) % MCV (80-98) fL MCH (27.0-33.0) pg MCHC (31.0-36.0) g/dl RDW (11.0-16.0) % Plt Count (160-400) X10*3/uL MPV (9.4-12.4) fL Immature Gran % (Auto) (0.0-0.4) % Neut % (Auto) (45-73) % Lymph % (Auto) (20-40) % [place] % (Auto) (2-11) % Eos % (Auto) (0-4) % Baso % (Auto) (0-2) % Lymph # (Auto) (1.2-4.9) X10*3/uL [place] # (Auto) (0.1-1.2) X10*3/uL Eos # (Auto) (0.0-0.4) X10*3/uL Baso # (Auto) (0.0-0.2) X10*3/uL Abs Immat Gran (auto) (0.00-0.03) X10*3/uL Absolute Neuts (auto) (2.0-8.3) X10*3/uL Absolute Nucleated RBC (0.0-0.012) X10*3/uL Nucleated RBC % (auto) (0.0-0.2) /100WBC PT (10.8-13.0) SEC Whole Blood PT 11.9 (11.1-13.5) sec INR (0.9-1.1) Whole Blood INR 1.0 (0.9-1.1) APTT (24.1-38.0) SEC Sodium (135-145) mmol/L Potassium (3.3-5.1) mmol/L Chloride (96-108) mmol/L Carbon Dioxide (22-29) mmol/L Anion Gap (12-20) BUN (9-16) mg/dL Creatinine (0.5-1.4) mg/dL Estim Creat Clear Calc Estimated GFR POC Glucose 190 H (60-115) mg/dL Random Glucose (60-115) mg/dL Calcium (8.4-10.2) mg/dL Magnesium (1.6-2.6) mg/dL Total Bilirubin (0.0-1.0) mg/dL Direct Bilirubin (0.0-0.5) mg/dL AST (5-37) U/L ALT (0-40) U/L Alkaline Phosphatase (39-117) U/L Troponin I High Sens (<3.5-35.0) ng/L Total Protein (6.5-8.0) g/dL Albumin (3.5-5.0) g/dL Lipase (8-78) U/L Ethyl Alcohol mg/dL COVID-19 ([facility]) (Negative) COVID-19 Clin Com Imaging Data CTA head and neck: Attestation: I personally reviewed and interpreted this imaging study as follows: Radiologist's impression: EXAMINATION: CTA NECK WITH CONTRAST (STROKE) CTA BRAIN WITH CONTRAST (STROKE) CLINICAL INFORMATION: Suspect acute stroke. Assess for major vessel occlusion. Please call report. COMPARISON: Concurrent CT scan of the head 09/28/2020. CT head and CT angiogram head and neck 09/25/2020. TECHNIQUE: CTA of the head and neck was performed in the axial plane from the mediastinum to the skull vertex using 70 mL Omnipaque 350 intravenous contrast. A delayed post contrast CT scan of the head was obtained. The degree of stenosis is based off NASCET criteria. Additional reformatted multiplanar images including maximum intensity projection MIP images are generated on the CT workstation. This CT examination was performed using dose optimization techniques as appropriate, variously including the following: *Automated exposure control *Adjustment of mA and/or kV according to patient size (this includes techniques or standardized protocols for targeted exams where dose is matched to indication/reason for exam; i.e. extremities or head) *Use of iterative reconstruction technique DLP: 1759 mGy-cm FINDINGS: CT Head: The study redemonstrates an area of low attenuation in the left basal ganglia and left subinsular region, which was seen on prior imaging. It may be slightly more prominent compared to the study of 09/25/2020. Elsewhere, there is no evidence of acute intracranial hemorrhage or territorial infarction. No abnormal mass-effect or midline shift is seen. [place] to white matter differentiation is well preserved. No extra-axial fluid collections are identified. There is no abnormal enhancement. The ventricles are normal in size. The osseous structures and soft tissues are normal. The mastoid air cells and visualized portions of the paranasal sinuses are well-aerated. CTA Neck: There is a classic configuration of the arch of the aorta. The origins of the great vessels of the neck appear normal. There is some beam hardening artifact from intravascular contrast which obscures the proximal cervical vessels. Distal to this the common carotid arteries bilaterally are patent with uniform caliber bilaterally. There are mild atheromatous calcifications at the left carotid bifurcation. The cervical internal carotid arteries are patent bilaterally. The origins of the vertebral arteries appear normal. The left vertebral artery is slightly dominant. Both vertebral arteries are patent throughout the cervical course extending intradurally. Nonvascular: The great vessels of the neck are widely patent. The subclavian arteries appear normal bilaterally. The common carotid arteries have normal caliber. The carotid bifurcations bilaterally appear normal. The internal carotid arteries in the neck bilaterally have uniform and normal caliber. The origins of both vertebral arteries are well seen and appear normal. Both vertebral arteries are widely patent and demonstrate good opacification throughout their cervical course. The left vertebral artery is slightly dominant. Nonvascular: The visualized lung haile are well-aerated. There is no cervical lymphadenopathy. The patient is edentulous in the mandible and the maxilla. There are surgical tacks in the right humerus. There are mild spondylitic changes in the cervical spine. CTA Head: There are atheromatous calcifications of the cavernous internal carotid arteries, but the vessels are patent. There is mild prominence of the infundibula of the ophthalmic arteries bilaterally. The intracranial internal carotid termini appear normal bilaterally. The proximal right middle cerebral artery is slightly narrowed caliber proximally, but more distally appears patent. There is mild narrowing at the M1 M2 region of the right middle cerebral artery. On the left the M1 segment appears patent with uniform caliber. A sylvian fissure branch of the left middle cerebral artery has slightly irregular caliber, but does not appear to be occluded. Overall, there is good arborization of the middle cerebral arteries bilaterally. The anterior cerebral and the anterior communicating artery is appear normal. No aneurysms are demonstrated. In the posterior circulation, the left vertebral artery is dominant. The vertebral arteries intradurally have normal caliber. The basilar artery appears normal. There is irregularity at the bilateral P1-P2 regions of the posterior cerebral arteries, more severe on the right. The dural venous sinuses opacify normally. CT/CT angio head neck stroke IMPRESSION: CT head and neck: 1. The study redemonstrates areas of low-attenuation in the left basal ganglia and left subinsular region, which may be consistent with evolving infarcts. This could be further evaluated with MRI scan of the brain if no contraindication. 2. There are no acute bleeds. There are no masses or areas of abnormal enhancement. 3. There are sequelae of right rotator cuff surgery. CTA head and neck: 1. In the neck, there are no significant flow limiting stenoses. The carotid and vertebral arteries are patent bilaterally. 2. Intracranially, there are no vascular occlusions. There is irregularity of the right M1/M2 region of the right middle cerebral artery, and there is irregularity of the sylvian branch of the left middle cerebral artery. There is irregularity of the bilateral posterior cerebral arteries. 2. There are no aneurysms or vascular malformations. This critical result was discussed with Loulou Felipe NP by telephone on 09/28/2020 at 3:45 PM and it was ascertained that the content and urgency of the report was understood at the time of direct communication. Chest x-ray: Attestation: I personally reviewed and interpreted this imaging study as follows: Radiologist's impression: EXAMINATION: XR CHEST CLINICAL INFORMATION: Right-sided weakness. COMPARISON: 09/25/2020 portable chest. TECHNIQUE: Frontal view of the chest was obtained. FINDINGS: Low lung volumes are seen with mild elevation of the left hemidiaphragm. The lungs are clear. The heart and mediastinal structures are unremarkable. XR/XR chest 1V IMPRESSION: No acute cardiopulmonary process. ECG Data Attestation: I personally reviewed and interpreted this ECG as follows: ECG interpretation date: 09/28/20 ECG interpretation time: 16:13 Prior ECG tracings: available for review Interpretation: Vent. rate 92 BPM NE interval 138 ms QRS duration 98 ms QT/QTc 356/440 ms P-R-T axes 58 41 72 Normal sinus rhythm Normal ECG When compared with ECG of 25-SEP-2020 14:01, No significant change was found Critical Care Time Critical Care Time Critical Care Time: Yes Total Critical Care Time: 45 Attestation: I have personally provided critical care time exclusive of time spent on separately billable procedures. Time includes review of laboratory data, radiology results, discussion with consultants, and monitoring for potential decompensation. Interventions were performed as documented. Discharge Plan Discharge Clinical Impression: Late effect of lacunar infarction Hemiparesis of right dominant side Qualifiers: Hemiparesis etiology: late effect of cerebrovascular disease Cerebrovascular disease type: cerebral infarction Qualified Code(s): I69.351 - Hemiplegia and hemiparesis following cerebral infarction affecting right dominant side Patient Disposition: Admitted As Inpatient Interventions: Admission Worksheet (ED) Last Done: 09/28/20 18:46 Discharge Date/Time: 09/28/20 18:48
--- NOTE | 2020-09-28 15:15 | ECG_ITS ---
Test Reason : STROKE Blood Pressure : / mmHG Vent. Rate : 092 BPM Atrial Rate : 092 BPM P-R Int : 138 ms QRS Dur : 098 ms QT Int : 356 ms P-R-T Axes : 058 041 072 degrees QTc Int : 440 ms Normal sinus rhythm Normal ECG When compared with ECG of 25-SEP-2020 14:01, No significant change was found Referred By: Loulou Munoz Electronically Signed By:Braxton Rosen
[2020-09-28 15:30] LABS: Prothrombin Time Whole Bld POC 11.9 sec (11.1-13.5)
[2020-09-28 15:31] LABS: Glucose, Whole Blood 190 mg/dL (60-115); MANUAL DIFF FLAG NO
[2020-09-28 15:33] LABS: Basophils Percent Auto 0.3 % (0-2); Eosinophils Absolute Auto 0.2 X10*3/uL (0.0-0.4); Eosinophils Percent Auto 3.5 % (0-4); Hematocrit 41.7 % (42-52); Hemoglobin 14.2 g/dl (14.0-18.0); Imm Gran Abs Auto 0.02 X10*3/uL (0.00-0.03); Imm Gran Pct Auto 0.3 % (0.0-0.4); Lymphocytes Absolute Auto 1.7 X10*3/uL (1.2-4.9); Lymphocytes Percent Auto 30.2 % (20-40); Mean Corpuscular HGB Conc 34.1 g/dl (31.0-36.0); Mean Corpuscular Hemoglobin 29.6 pg (27.0-33.0); Mean Corpuscular Volume 86.9 fL (80-98); Mean Platelet Volume 9.9 fL (9.4-12.4); Monocytes Absolute Auto 0.6 X10*3/uL (0.1-1.2); Monocytes Percent Auto 10.4 % (2-11); Neutrophils Absolute Auto 3.2 X10*3/uL (2.0-8.3); Neutrophils Percent Auto 55.3 % (45-73); Platelet Count 148 X10*3/uL (160-400); Red Cell Distribution Width 12.8 % (11.0-16.0); White Blood Count 5.8 X10*3/uL (4.8-10.8)
[2020-09-28 15:39] LABS: Prothrombin Time 11.8 SEC (10.8-13.0)
[2020-09-28 15:42] LABS: Partial Thromboplastin Time 31.3 SEC (24.1-38.0)
[2020-09-28 15:50] VITALS: BP 145/77; PULSE 87; RESP 16; TEMP 37.1; O2SAT 94; BMI 38.7
[2020-09-28] MEDS: iohexoL 350 MG/ML 100 ML INFUS..BTL 70 ML IV (15:53)
[2020-09-28 16:01] LABS: Alanine Aminotransferase 27 U/L (0-40); Albumin Level 3.9 g/dL (3.5-5.0); Alkaline Phosphatase 90 U/L (39-117); Anion Gap 14 (12-20); Aspartate Amino Transferase 30 U/L (5-37); Bilirubin Direct 0.2 mg/dL (0.0-0.5); Bilirubin Total 0.4 mg/dL (0.0-1.0); Blood Urea Nitrogen 24 mg/dL (9-16); Calcium 9.3 mg/dL (8.4-10.2); Carbon Dioxide 24 mmol/L (22-29); Chloride 106 mmol/L (96-108); Estimated Glomerular Filt Rate 44; Glucose Random 191 mg/dL (60-115); Lipase 32 U/L (8-78); Magnesium 1.7 mg/dL (1.6-2.6); Sodium 140 mmol/L (135-145); Total Protein 6.9 g/dL (6.5-8.0)
[2020-09-28 16:06] LABS: Troponin-I High Sensitivity 5.7 ng/L (<3.5-35.0)
[2020-09-28 16:08] LABS: Ethanol < 10 mg/dL
[2020-09-28 16:12] LABS: COVID-19 Test Negative (Negative)
--- NOTE | 2020-09-28 16:20 | P.HPHOSP_ITS ---
History of Present Illness Date of Service: 09/28/20 Chief Complaint: R-sided weakness This 60 year-old R-hand dominant man with uncontrolled DM2, morbid obesity, CKD3, HLD, and prior COVID-19 pneumonia complicated by DVT/PE for which he was anticoagulated with 3 months of rivoraxaban was discharged here 09/26/20 after admission on 09/25/20 for minor CVA characterized by mild dysarthria and R hand weakness, the latter of which had resolved by the time he presented to the ED [thus giving him an NIHSS of 1]. He was discharged on DAPT. He had a visit with the VNA at home yesterday morning and was feeling well. However, quite suddenly, at 12:00 noon yesterday, he developed R-sided facial droop, worsening dysarthria and right arm and leg weakness. He denies headache, cough, dyspnea, chest pain, or palpitations. He does endorse cramping pain of the left thigh. A CTA of the head and neck in the ED demonstrated evolving infarcts in the left basal ganglia and subinsular region. The right M1/M2 regione of the right MCA was irregular, as were the sylvian branch of the left MCA and both monitoring and evaluation advisor. Neurology was consulted urgently and recommended admission for further evaluation. Per my discharge summary from 09/26/20: CT of the scan was negative for acute abnormality, but showed extensive chronic small-vessel microangiopathy. CTA of the head and neck was negative for large- vessel occlusion but did demonstrate a small acute left basal gangliar infarct with other patchy areas of hypoattenuation in the left MCA territory suspicious for an acute CVA. Neurology was consulted. The patient was outside of the window for tPA. Neurology was consulted and recommend admission for further evaluation. The patient was admitted to telemetry. He had no arrhythmias. TTE did not demonstrate intra-atrial shunt or intracardiac thrombus. Neurology was consulted. MRI was recommended, but the patient will not fit in our scanner due to his girth; as such, an outpatient open MRI should be done. Dual antiplatelet therapy with both clopidogrel and aspirin for 3 weeks was recommended, to be folowed by clopidogrel. A high-intensity statin was started. He was started on amlodipine for blood pressure control. He needs better control of diabetes as evidence by A1c of 12.4; consideration should be given to outpatient endocrinology referral for continuous glucose monitor. He should follow up with his primary care doctor in 1 week and with Neurology in 2 weeks. He was discharged home with VNA services for medication management, blood pressure and blood glucose monitoring, occupational therapy for residual hand weakness, and speech therapy for residual dysarthria. Review of Systems Review of Systems: Yes all other systems are reviewed and are negative [facility] Medical History (Updated 09/28/20 @ 16:29 by Spencer Huizar MD) Back pain CAD (coronary artery disease) Colitis Controlled diabetes mellitus without complication, with long-term current use of insulin COVID-19 Diabetes type 2, uncontrolled Essential hypertension Hyperlipidemia LDL goal <70 Kidney stones Obesity due to excess calories Phimosis Pulmonary embolism Stroke Uncontrolled diabetes mellitus Vitamin D deficiency Family History Father Diabetes Mother No problems noted. Surgical History History of colon surgery Hx of rotator cuff surgery Social History Household Members: Spouse and Family Housing: Apartment Do you presently have visiting nurse or other home services: No Alcohol intake: never Patient Tobacco Use Status: Never used Tobacco Advance Directives: Yes Advance Directives on File: Yes Advance Directives Date on File: 05/10/20 service: No Current occupational status: disabled Meds Allergies Allergy/AdvReac Type Severity Reaction Status Date / Time vancomycin [VANCOMYCIN] Allergy Severe ANAPHYLAXIS Verified 06/27/20 10:34 morphine [MORPHINE] Allergy Intermediate RASH Verified 06/27/20 10:34 Penicillins Allergy Intermediate edema Verified 06/27/20 10:34 penicillin V Allergy Mild unknown Verified 06/27/20 10:34 ibuprofen [From MOTRIN] Allergy Unknown edema Verified 06/27/20 10:34 Motrin AdvReac Unknown Unknown Uncoded 06/27/20 10:34 Active Medications: Current Medications Generic Name Dose Route Start Last Admin Trade Name Freq PRN Reason Stop Dose Admin Acetaminophen 650 mg 09/28/20 16:13 Acetaminophen 325 Mg Tablet PO Q6H PRN Pain, Mild (Pain Scale 1-3) Aspirin 81 mg 09/28/20 16:15 Aspirin Enteric Coated 81 Mg Tablet. PO DAILY LURDES Atorvastatin Calcium 80 mg 09/28/20 21:00 Atorvastatin Calcium 80 Mg Tablet PO BEDTIME [facility] Clopidogrel Bisulfate 75 mg 09/28/20 16:15 Clopidogrel Bisulfate 75 Mg Tablet PO DAILY [facility] Ondansetron HCl 4 mg 09/28/20 16:13 Ondansetron Hcl 4 Mg/2 Ml Vial IVPUSH Q8H PRN Nausea and Vomiting Pharmacy Consult 1 each 09/28/20 15:57 Consult Rx Perform Med Rec MISCELLANE ONCE PRN Consult order Home Medications Medication Instructions Recorded Confirmed Last Taken Type empagliflozin 25 mg tablet 25 mg PO QAM 02/20/20 09/25/20 09/24/20 History Tresiba FlexTouch U-200 35 unit SUBCUT DAILY 09/25/20 09/25/20 09/24/20 History tamsulosin 2 cap PO BEDTIME 09/28/20 Unknown History Physical Exam Vital Signs and Narrative: Vital Signs: Last Vital Signs Temp 98.8 F 09/28/20 15:50 Pulse 87 09/28/20 15:50 Resp 16 09/28/20 15:50 BP 145/77 H 09/28/20 15:50 Pulse Ox 94 09/28/20 15:50 Body Mass Index 38.7 Gen: dysarthric but mostly intelligible HEENT: sclera anicteric, moist mucus membranes Neck: supple, no carotid bruits Lungs: clear to auscultation bilaterally Heart: regular rate and rhythm, no murmurs Abd: soft, obese non-tender, non-distended Ext: no edema Skin: warm/well-perfused Neuro: alert and oriented, R-sided lower facial droop, marked RUE weakness + RLE weakness Psych: appropriate affect Results Labs CBC and Chem 7: 09/28/20 15:21 09/28/20 15:21 Labs: Laboratory Results - last 24 hr 09/28/20 09/28/20 09/28/20 15:21 15:21 15:21 MCV 86.9 MCH 29.6 MCHC 34.1 RDW 12.8 Plt Count 148 L MPV 9.9 Immature Gran % (Auto) 0.3 Neut % (Auto) 55.3 Lymph % (Auto) 30.2 [place] % (Auto) 10.4 Eos % (Auto) 3.5 Baso % (Auto) 0.3 Lymph # (Auto) 1.7 [place] # (Auto) 0.6 Eos # (Auto) 0.2 Baso # (Auto) 0.0 Abs Immat Gran (auto) 0.02 Absolute Neuts (auto) 3.2 Absolute Nucleated RBC 0.000 Nucleated RBC % (auto) 0.0 PT 11.8 Whole Blood PT INR 1.0 Whole Blood INR APTT 31.3 Anion Gap 14 Estim Creat Clear Calc 59.0 Estimated GFR 44 POC Glucose Random Glucose 191 H Calcium 9.3 Magnesium 1.7 Total Bilirubin 0.4 Direct Bilirubin 0.2 AST 30 ALT 27 Alkaline Phosphatase 90 Troponin I High Sens Total Protein 6.9 Albumin 3.9 Lipase 32 Ethyl Alcohol COVID-19 ([facility]) COVID-19 Clin Com 09/28/20 09/28/20 09/28/20 15:21 15:21 15:21 MCV MCH MCHC RDW Plt Count MPV Immature Gran % (Auto) Neut % (Auto) Lymph % (Auto) [place] % (Auto) Eos % (Auto) Baso % (Auto) Lymph # (Auto) [place] # (Auto) Eos # (Auto) Baso # (Auto) Abs Immat Gran (auto) Absolute Neuts (auto) Absolute Nucleated RBC Nucleated RBC % (auto) PT Whole Blood PT INR Whole Blood INR APTT Anion Gap Estim Creat Clear Calc Estimated GFR POC Glucose Random Glucose Calcium Magnesium Total Bilirubin Direct Bilirubin AST ALT Alkaline Phosphatase Troponin I High Sens 5.7 Total Protein Albumin Lipase Ethyl Alcohol < 10 COVID-19 ([facility]) Negative COVID-19 Clin Com See Note 09/28/20 09/28/20 15:21 15:22 MCV MCH MCHC RDW Plt Count MPV Immature Gran % (Auto) Neut % (Auto) Lymph % (Auto) [place] % (Auto) Eos % (Auto) Baso % (Auto) Lymph # (Auto) [place] # (Auto) Eos # (Auto) Baso # (Auto) Abs Immat Gran (auto) Absolute Neuts (auto) Absolute Nucleated RBC Nucleated RBC % (auto) PT Whole Blood PT 11.9 INR Whole Blood INR 1.0 APTT Anion Gap Estim Creat Clear Calc Estimated GFR POC Glucose 190 H Random Glucose Calcium Magnesium Total Bilirubin Direct Bilirubin AST ALT Alkaline Phosphatase Troponin I High Sens Total Protein Albumin Lipase Ethyl Alcohol COVID-19 ([facility]) COVID-19 Clin Com Assessment and Plan (1) Hemiparesis of right dominant side: Qualifiers: Cerebrovascular disease type: cerebral infarction Hemiparesis etiology: late effect of cerebrovascular disease Qualified Code(s): I69.351 - Hemiplegia and hemiparesis following cerebral infarction affecting right dominant side Status: Acute (2) Late effect of lacunar infarction: Status: Acute This 60yo M with controlled DM2, morbid obesity, CKD3, HLD, and history of COVID-19 pneumonia complicated by DVT/PE for which he was anticogulated with rivaroxaban for 3 months, was admitted 09/25-09/26/20 for ischemic CVA of left basal ganglia chracterized by mild dysarthria and R hand weakness. He unfortunately presents nearly 24 hours after developing worsening R-sided facial droop and R hemiparesis. # acute CVA - stuttering course, has now progressed to a major stroke with NIHSS17. admit to C, check continuous cardiac monitoring. Neurology + PT/OT/PEDIATRIC PHYSICAL THERAPIST consul tations. Continue DAPT with ASA + clopidogrel and high-intensity statin but will have to be careful of hemorrhagic conversion. Will repeat CTH in the am # CKD3 - SCr stable at baseline; avoid nephrotoxins # HLD - statin as above; continue ezetimibe # HTN - hold amlodipine for now [started on last admission] to allow permissive hypertension # DM2, A1c 12.2 - continue basal insulin, add correction-dose lispro # morbid obesity - Mediterranean + low-carb diet advised # VTE ppx - LMWH # code - FULL Quality Stroke Does the patient have a stroke diagnosis?: Yes Reason for No Anti-thrombotic by Day Two: N/A - Med Ordered VTE Prior VTE?: Yes VTE Risk Level:: Medical - moderate - high VTE Device Contraindication: Treatment Not Indicated VTE Drug Contraindication: N/A - Med Ordered
--- NOTE | 2020-09-28 16:21 | MHC.STROKE ---
Addendum entered by Nayely Richardson RN 10/01/20 11:16: I MET WITH THE PATIENT EARLIER TODAY AND THEN AGAIN WITH HIS DONIS PRESENT. I REVIEWED THE ENTIRE SEQUENCE OF EVENTS INCLUDING THE PRIOR STROKE ADMISSION AND THIS ONE. I EXPLAINED THAT I WAS IN THE ED DURING THIS EVENT AND STAYED WITH HIM, I OBTAINED A SPEECH EVAL, ASSISTED IN ANYWAY I COULD. HE ENDED UP AGREEING TO THE MRI, HE HAD REFUSED INITIALLY DUE TO HIS SIZE, HE SAID IT WAS TOO TIGHT FOR HIS SHOULDER AND I MADE HIM FEEL CLAUSTROPHOBIC. I DID GIVE HIM A SCREEN SHOT OF THE MRI AND DESCRIBED LOCATION OF THE STROKE AND CORRELATED SYMPTOMS, WE REVIEWED HIS RISK FACTORS, OBESITY, UNCONTROLLED DM, HTN, HIGH CHOLESTEROL. I REVIEWED THE MEDICATIONS AND EXPLAINED THE REASON FOR TAKING THESE. HE BECAME VERY DISCOURAGE AND STARTED TO CRY. HE IS VERY INDEPENDENT AND THIS IS HARD. I RECOMMENDED AN ANTIDEPRESSANT, HE IS NOT SURE HE WANTS ONE BUT I DID ASK DR TRAVIS ABOUT IT. HE IS ANXIOUS TO GO TO ACUTE REHAB, [facility] IS THEIR 1ST CHOICE. I REVIEWED ADDITIONAL STROKE EDUCATION. I WILL CONTINUE TO FOLLOW. Addendum entered by Nayely Richardson RN 09/29/20 10:34: I SPOKE WITH JOHN ORDOÑEZ THIS MORNING REGARDING VTE PROPHYLAXIS, PATIENT WAS ON XARELTO IN THE PAST FOR PE AND DVT. DR ELLIOTT HAD RECOMMENDED ASPIRIN AND PLAVIX AT THIS TIME. NO EMBOLIC SOURCE FOR STROKE IDENTIFIED OF YET. NEUROLOGY CONSULT PENDING WELL AND REPEAT CT HEAD FROM THIS AM. DR TRAVIS HAS BEEN NOTIFIED. Original Note: 1507 EMS PRE-NOTIFIED STROKE ALERT , RIGHT HEMIPARESIS, DYSARTHRIA. ARRIVED 1511, EXAMINED BY ED PROVIDER, NIHSS = [address], EXCLUDED FROM TPA DUE TO MULTIPLE REASONS, OUT OF THE WINDOW ONSET 09/27/20 AT 1200 AND RECENT STROKE, DISCHARGED ON 09/26/20 WITH A NIHSS = 2, FACIAL DROOP AND DYSARTHRIA. I DID ALSO EXAMINE THE PATIENT AND PAINT FACTORY WORKER SPOKE WITH DR RAMSAY, CONTINUE ASPIRIN AND PLAVIX. PATIENT IS BEGINNING TO MOVE HIS RIGHT LEG AND BEND HIS KNEE. LEFT LEG HE IS ABLE TO RAISE, LEFT ARM HE ALSO CAN RAISE. NO APHASIA, PARTIAL FACIAL DROOP ON THE RIGHT, SEVERE DYSARTHRIA. DURING MY EXAM HE DEVELOPED LEFT UPPER THIGH SPASM/CRAMPING, FAILED SWALLOW SCREEN, NPO UNTIL SEEN BY SPEECH, I DID CALL SPEECH OFFICE AND NOTIFY THEM OF THE CONSULT. I RELAYED THIS INFORMATION TO DR DELGADILLO AND CHRISTINE PAINT FACTORY WORKER IN ED. I PROVIDED REASSURANCE TO THE PATIENT. HE CANNOT FIT IN THE MRI SCANNER. REPEAT CT HEAD RECOMMENDED FOR THE AM. R/O EMBOLIC STROKE. STROKE EDUCATION INITIATED. I WILL CONTINUE TO FOLLOW.
[2020-09-28] MEDS: Clopidogrel Bisulfate 75 MG TABLET PO (16:59)
[2020-09-28] MEDS: Aspirin Enteric Coated 81 MG TABLET.DR PO (16:59)
--- NOTE | 2020-09-28 17:01 | PC.NURSE ---
Pt upset about diet consistency restrictions. He was educated on risks of drinking thin liquids and eating a regular consistency. He is upset but took his pills in applesauce.
--- NOTE | 2020-09-28 17:02 | MHC.SL.SWA ---
Speech Pathologist Impression: Risk of Aspiration Oralpharyngeal Dysphagia Risk of Aspiration Due to: Neurological Condition Liquid Consistency and Strategies for Safe Swallow: Liquid Intake Recommendation: NECTAR THICK Solid Food Consistency: Dietary Recommendations: Grnd/Mech Altered (NDD2) Oral Medication Intake: Crushed with Puree Compensatory Strategies and Precautions to be Taken for Safe Swallow: Small bites/sips One bite at a time/ one sip at a time Alternate bite of food with sip of liquid Upright 90 degree position during PO intake Swallowing Recommended Treatments: Patient was fed with assistance. Patient tolerated pureed solid (applesauce) with good oral clearance and no overt s/s of aspiration. When given small bites of dry saltine crackers, noted disorganized chewing. Patient exhibited difficulty forming labial seal and manipulating bolus. Prolonged oral preparatory phase. Mild oral residue, cleared with liquid wash. Patient displayed immediate wet cough with teaspoon of thin liquid. Noted audible swallow. Patient tolerated honey thick and nectar thick by straw with no overt s/s of aspiration. Recommendation for Speech: Inpatient Speech Therapy for aphasia, dysarthria, and dysphagia Instructor Of Spanish Clinican/Clinical Fellow: No Supervisory Statement: I have reviewed and agree with the student/clinical fellow's documentation: N/A Speech Language Pathologist: Helen Cutler M.A., CCC-SHELF DRIER OPERATOR
[2020-09-28 18:19] LABS: Appearance Urine CLEAR; Color Urine YELLOW; Glucose Urine UA >=1000 MG/DL (NEG); Leukocyte Esterase Urine NEG (NEG); Nitrite Urine NEG (NEG); Urine Blood TRACE (NEG); Urine Ketones NEG (NEG); Urine Protein NEG (NEG-TRACE)
[2020-09-28 18:27] LABS: Bacteria Urine TRACE /LPF; RBC Urine 0-2 /HPF (0); Squamous Epithelial Cell Urine 4+ /LPF; UACC CULT YES
[2020-09-28 18:38] LABS: Amphetamine Screen Urine Not Detected (Not Detect); Barbiturates, Urine Not Detected (Not Detect); Benzodiazepines Screen Urine Not Detected (Not Detect); Cannabinoid Screen Urine Not Detected (Not Detect); Cocaine Screen Urine Not Detected (Not Detect); Opiate Screen Urine Not Detected (Not Detect); Phencyclidine Screen Urine Not Detected (Not Detect)
[2020-09-28 19:01] VITALS: BP 123/60; PULSE 98; RESP 18; TEMP 36.4; O2SAT 95
[2020-09-28 20:14] LABS: Glucose, Whole Blood 214 mg/dL (60-115)
[2020-09-28] MEDS: Atorvastatin Calcium 80 MG TABLET PO (21:17)
[2020-09-28] MEDS: Insulin Lispro 100 UNIT/ML 3 ML VIAL SUBCUT (21:17)
[2020-09-28] MEDS: Insulin Glargine,Hum.rec.anlog 100 UNIT/ML 10 ML VIAL 20 UNIT SUBCUT (21:59)
[2020-09-28 23:39] VITALS: BP 145/74; PULSE 95; RESP 18; TEMP 37; O2SAT 96
[2020-09-29] VITALS (7 sets, daily range): BP systolic 134–158; BP diastolic 69–86; PULSE 76–95; RESP 15–18; TEMP 36.3–37.1; O2SAT 96–97
[2020-09-29 04:19] LABS: Glucose, Whole Blood 125 mg/dL (60-115)
[2020-09-29 05:59] LABS: MANUAL DIFF FLAG NO
[2020-09-29 06:12] LABS: White Blood Count 6.2 X10*3/uL (4.8-10.8)
[2020-09-29 06:13] LABS: Basophils Percent Auto 0.5 % (0-2); Eosinophils Absolute Auto 0.2 X10*3/uL (0.0-0.4); Eosinophils Percent Auto 3.7 % (0-4); Hematocrit 42.1 % (42-52); Hemoglobin 14.2 g/dl (14.0-18.0); Imm Gran Abs Auto 0.01 X10*3/uL (0.00-0.03); Imm Gran Pct Auto 0.2 % (0.0-0.4); Lymphocytes Absolute Auto 1.8 X10*3/uL (1.2-4.9); Lymphocytes Percent Auto 28.4 % (20-40); Mean Corpuscular HGB Conc 33.7 g/dl (31.0-36.0); Mean Corpuscular Hemoglobin 29.6 pg (27.0-33.0); Mean Corpuscular Volume 87.9 fL (80-98); Mean Platelet Volume 10.4 fL (9.4-12.4); Monocytes Absolute Auto 0.7 X10*3/uL (0.1-1.2); Monocytes Percent Auto 11.4 % (2-11); Neutrophils Absolute Auto 3.4 X10*3/uL (2.0-8.3); Neutrophils Percent Auto 55.8 % (45-73); Platelet Count 154 X10*3/uL (160-400); Red Blood Count 4.79 X10*6/uL (4.60-5.80)
[2020-09-29 06:30] LABS: Anion Gap 13 (12-20); Blood Urea Nitrogen 22 mg/dL (9-16); Calcium 9.7 mg/dL (8.4-10.2); Carbon Dioxide 29 mmol/L (22-29); Chloride 104 mmol/L (96-108); Creatinine Clr Calc Pharmacy 57.2; Estimated Glomerular Filt Rate 42; Glucose Random 128 mg/dL (60-115); Potassium 4.1 mmol/L (3.3-5.1); Sodium 142 mmol/L (135-145)
[2020-09-29 08:46] LABS: Glucose, Whole Blood 131 mg/dL (60-115)
[2020-09-29] MEDS: Clopidogrel Bisulfate 75 MG TABLET PO (09:08)
[2020-09-29] MEDS: Magnesium Oxide 400 MG TABLET 200 MG PO (09:08)
[2020-09-29] MEDS: Aspirin Enteric Coated 81 MG TABLET.DR PO (09:09)
[2020-09-29] MEDS: Cholecalciferol (Vitamin D3) 25 MCG TABLET PO (09:09)
[2020-09-29] MEDS: Ezetimibe 10 MG TABLET PO (09:09)
--- NOTE | 2020-09-29 11:22 | MHC.CM.PN ---
CM MET WITH PT WHO REPORTS HE LIVES WITH HIS AND WAS FULLY INDEPENDENT [employer]. PT CALLED HIS AND ASKED CM TO SPEAK TO HER SHE WOULD HAVE MORE INFORMATION. PTS REPORTS THE PTS PCP IS BO LU WHO WORKS OUT OF [facility] IN [place]. SHE CONFIRMS THE PT HAD NO DME OR SERVICES [employer]. SHE REPORTS SHE AND THE PT ARE AWARE THE PT WILL NEED REHAB PRIOR TO RETURNING HOME. THEY WOULD LIKE A REFERRAL TO [facility]. REFERRAL WAS PLACED. IMM DELIVERED CURRENT DC PLAN IS AR VS STR. [facility] IS PREFERRED FACILITY. PT WILL REQUIRE BLS TRANSPORT PTS IS BEST CONTACT FOR DC PLANNING: DONIS [phone]
[2020-09-29 11:35] LABS: Glucose, Whole Blood 171 mg/dL (60-115)
--- NOTE | 2020-09-29 11:37 | P.CNNE_ITS ---
History of Present Illness Data of Consult Service Date: 09/29/20 Primary Care Provider: Unknown Physician 60 years old man with underlying history of type 2 diabetes renal insufficiency and hypertension who was recently admitted in this hospital with small left subcortical infarct causing right-sided numbness. He also had recent history of COVID pneumonia and associated DVT. He was anticoagulated but that had been stopped. He came back to hospital with worsening of right-sided weakness. Because of time delay and recent stroke, he was not considered a candidate for aggressive treatment such as intravenous tPA. His vascular imaging did not reveal any lesion that could be fixed with catheterization and he was admitted hospital. Now he was feeling okay but still was weak on right side. There was no associated dizziness or headache nausea or vomiting. There was no speech or language difficulty. Review of Systems Review of Systems: No recent cold or flu-like illness or trauma or seizure. [facility] Past Medical History Medical History (Updated 09/29/20 @ 11:41 by Ezio Christian MD) Back pain CAD (coronary artery disease) Colitis Controlled diabetes mellitus without complication, with long-term current use of insulin COVID-19 Diabetes type 2, uncontrolled Essential hypertension Hyperlipidemia LDL goal <70 Kidney stones Obesity due to excess calories Phimosis Pulmonary embolism Stroke Uncontrolled diabetes mellitus Vitamin D deficiency Family History Family History Father Diabetes Mother No problems noted. Surgical History Surgical History History of colon surgery Hx of rotator cuff surgery Social History Social History Household Members: Family Housing: House Do you presently have visiting nurse or other home services: Yes Alcohol intake: never Patient Tobacco Use Status: Never used Tobacco Use of substances other than those prescribed or required for medical reasons: No Currently Displaying Signs/Symptoms of Drug Intoxication Withdrawal: No Have you been hit, kicked, punched, or otherwise hurt by someone within the past year? If so, by whom?: No Do you feel safe in your current relationship?: Yes Is there a partner from a previous relationship who is making you feel unsafe now?: No Are you made to feel afraid or neglected: No Advance Directives: Yes Advance Directives on File: Yes Advance Directives Date on File: 05/10/20 Do you have thoughts of harming others: None Do you have a plan to hurt others: No Plan Recently lost weight without trying: No Eating poorly because of decreased appetite: No Nutrition Risks: Difficulty swallowing and On aspiration precautions Poor oral hygiene: No service: No Current occupational status: disabled Meds Allergies Allergy/AdvReac Type Severity Reaction Status Date / Time vancomycin [VANCOMYCIN] Allergy Severe ANAPHYLAXIS Verified 06/27/20 10:34 morphine [MORPHINE] Allergy Intermediate RASH Verified 06/27/20 10:34 Penicillins Allergy Intermediate edema Verified 06/27/20 10:34 penicillin V Allergy Mild unknown Verified 06/27/20 10:34 ibuprofen [From MOTRIN] Allergy Unknown edema Verified 06/27/20 10:34 Motrin AdvReac Unknown Unknown Uncoded 06/27/20 10:34 Active Medications: Current Medications Generic Name Dose Route Start Last Admin Trade Name Freq PRN Reason Stop Dose Admin Acetaminophen 650 mg 09/28/20 16:13 Acetaminophen 325 Mg Tablet PO Q6H PRN Pain, Mild (Pain Scale 1-3) Aspirin 81 mg 09/28/20 16:15 09/29/20 09:09 Aspirin Enteric Coated 81 Mg Tablet.Dr PO 81 mg DAILY LURDES Administration Atorvastatin Calcium 80 mg 09/28/20 21:00 09/28/20 21:17 Atorvastatin Calcium 80 Mg Tablet PO 80 mg BEDTIME LURDES Administration Clopidogrel Bisulfate 75 mg 09/28/20 16:15 09/29/20 09:08 Clopidogrel Bisulfate 75 Mg Tablet PO 75 mg DAILY LUR[facility] Administration Ezetimibe 10 mg 09/29/20 09:00 09/29/20 09:09 Ezetimibe 10 Mg Tablet PO 10 mg DAILY LUR[facility] Administration Enoxaparin Sodium 40 mg 09/29/20 11:00 Enoxaparin Sodium 40 Mg/0.4 Ml Syringe SUBCUT Q24H [facility] Insulin Glargine 20 unit 09/28/20 21:00 09/28/20 21:59 Insulin Glargine,Hum.Rec.Anlog 100 Unit/Ml 10 Ml Vial SUBCUT 20 unit BEDTIME LURDES Administration Insulin Human Lispro 0 unit 09/28/20 16:30 09/29/20 08:40 Insulin Lispro 100 Unit/Ml 3 Ml Vial SUBCUT Not Given QIDACHS [facility] Protocol Magnesium Oxide 200 mg 09/29/20 09:00 09/29/20 09:08 Magnesium Oxide 400 Mg Tablet PO 200 mg DAILY LUR[facility] Administration Ondansetron HCl 4 mg 09/28/20 16:13 Ondansetron Hcl 4 Mg/2 Ml Vial IVPUSH Q8H PRN Nausea and Vomiting Pharmacy Consult 1 each 09/28/20 15:57 Consult Rx Perform Med Rec MISCELLANE ONCE PRN Consult order Potassium Chloride 1 meq 09/28/20 21:00 09/29/20 09:09 Potassium Chloride Er 10 Meq Capsule.Er PO Not Given BID [facility] Vitamin D 25 mcg 09/29/20 09:00 09/29/20 09:09 Cholecalciferol (Vitamin D3) 25 Mcg Tablet PO 25 mcg DAILY LURDES Administration Home Medications Medication Instructions Recorded Confirmed Last Taken Type empagliflozin 25 mg tablet 25 mg PO QAM 02/20/20 09/28/20 09/24/20 History Tresiba FlexTouch U-200 35 unit SUBCUT DAILY 09/25/20 09/28/20 09/24/20 History dulaglutide [Trulicity] 1.5 mg SUBCUT MO 09/28/20 09/28/20 09/24/20 History hydrochlorothiazide 2 cap PO DAILY 09/28/20 09/28/20 Unknown History magnesium 200 mg PO DAILY 09/28/20 09/28/20 Unknown History potassium citrate 1 tab PO BID 09/28/20 09/28/20 Unknown History Physical Exam Vital Signs: Vital Signs: Last Vital Signs Temp 97.7 F 09/29/20 11:10 Pulse 90 09/29/20 11:10 Resp 16 09/29/20 07:35 BP 141/75 H 09/29/20 11:10 Pulse Ox 96 09/29/20 11:10 Body Mass Index 38.7 He was alert and awake with normal spontaneity of speech fluency comprehension and flat affect. There was moderate right-sided central type facial weakness. He barely could move his right arm and hand. He was able to lift his right leg against gravity. There was no significant neglect. Visual haile are full. Results Labs CBC & Chem 7: 09/29/20 05:42 09/29/20 05:42 Labs: Short CBC 09/28/20 09/29/20 Range/Units 15:21 05:42 WBC 5.8 6.2 (4.8-10.8) X10*3/uL Hgb 14.2 14.2 (14.0-18.0) g/dl Hct 41.7 L 42.1 (42-52) % Plt Count 148 L 154 L (160-400) X10*3/uL BMP 09/28/20 09/29/20 15:21 05:42 Sodium 140 142 Potassium 4.0 4.1 Chloride 106 104 Carbon Dioxide 24 29 BUN 24 H 22 H Creatinine 1.63 H 1.68 H Calcium 9.3 9.7 Liver Function 09/28/20 Range/Units 15:21 Total Bilirubin 0.4 (0.0-1.0) mg/dL Direct Bilirubin 0.2 (0.0-0.5) mg/dL AST 30 (5-37) U/L ALT 27 (0-40) U/L Alkaline Phosphatase 90 (39-117) U/L Albumin 3.9 (3.5-5.0) g/dL Urine 09/28/20 Range/Units 18:08 Urine Color YELLOW Urine Appearance CLEAR Urine pH 6.0 (5.0-8.0) Ur Specific [place] 1.010 (1.005-1.025) Urine Protein NEG (NEG-TRACE) MG/DL Urine Glucose (UA) >=1000 H (NEG) MG/DL Assessment and Plan (1) Cerebral infarction: Status: Acute 60 years old man with underlying history of diabetes hypertension and hyperlipidemia, who also had COVID recently with associated DVT, had worsening of left basal ganglia infarct. This type of relatively small vessel atherothrombotic infarct sometimes can get worse because of underlying athero 2nd carotid disease. This stroke probably did not happen because of embolism. At this time my recommendation is to continue dual anti-platelet therapy statin and blood pressure control is better sugar control. He should be referred to p hysical therapy for rehab. As for his dizzy in for anticoagulation is concerned, that is separate and can be use if needed. There was no neurological contraindication of anticoagulation. Procedures Date of Service Date of Service: 09/29/20
[2020-09-29] MEDS: Enoxaparin Sodium 40 MG/0.4 ML SYRINGE SUBCUT (12:11)
--- NOTE | 2020-09-29 13:38 | P.PNIM_ITS ---
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 CVS no cp,no sob GI no n/v/d Physical Exam Vital Signs: Vital Signs: Last Vital Signs Temp 97.7 F 09/29/20 11:10 Pulse 90 09/29/20 11:10 Resp 16 09/29/20 07:35 BP 141/75 H 09/29/20 11:10 Pulse Ox 96 09/29/20 11:10 Body Mass Index 38.7 Gen: no distress, Neck: supple, no carotid bruits Lungs: clear to auscultation bilaterally Heart: regular rate and rhythm, no murmurs Abd: soft, obese non-tender, non-distended Ext: no edema Skin: warm, dry no rash Neuro: alert and oriented, R-sided lower facial droop, marked RUE weakness + RLE weakness, speech dysarthric difficult to understand Psych: frustrated/depressed mood Objective Data Current Medications Generic Name Dose Route Start Last Admin Trade Name Boq PRN Reason Stop Dose Admin Acetaminophen 650 mg 09/28/20 16:13 Acetaminophen 325 Mg Tablet PO Q6H PRN Pain, Mild (Pain Scale 1-3) Aspirin 81 mg 09/28/20 16:15 09/29/20 09:09 Aspirin Enteric Coated 81 Mg Tablet. PO 81 mg DAILY LURDES Administration Atorvastatin Calcium 80 mg 09/28/20 21:00 09/28/20 21:17 Atorvastatin Calcium 80 Mg Tablet PO 80 mg BEDTIME LURDES Administration Clopidogrel Bisulfate 75 mg 09/28/20 16:15 09/29/20 09:08 Clopidogrel Bisulfate 75 Mg Tablet PO 75 mg DAILY LUR[facility] Administration Ezetimibe 10 mg 09/29/20 09:00 09/29/20 09:09 Ezetimibe 10 Mg Tablet PO 10 mg DAILY LUR[facility] Administration Enoxaparin Sodium 40 mg 09/29/20 11:00 09/29/20 12:11 Enoxaparin Sodium 40 Mg/0.4 Ml Syringe SUBCUT 40 mg Q24H [facility] Administration Insulin Glargine 20 unit 09/28/20 21:00 09/28/20 21:59 Insulin Glargine,Hum.Rec.Anlog 100 Unit/Ml 10 Ml Vial SUBCUT 20 unit BEDTIME LURDES Administration Insulin Human Lispro 0 unit 09/28/20 16:30 09/29/20 12:20 Insulin Lispro 100 Unit/Ml 3 Ml Vial SUBCUT Not Given QIDACHS [facility] Protocol Magnesium Oxide 200 mg 09/29/20 09:00 09/29/20 09:08 Magnesium Oxide 400 Mg Tablet PO 200 mg DAILY LURDES Administration Ondansetron HCl 4 mg 09/28/20 16:13 Ondansetron Hcl 4 Mg/2 Ml Vial IVPUSH Q8H PRN Nausea and Vomiting Pharmacy Consult 1 each 09/28/20 15:57 Consult Rx Perform Med Rec MISCELLANE ONCE PRN Consult order Potassium Chloride 1 meq 09/28/20 21:00 09/29/20 09:09 Potassium Chloride Er 10 Meq Capsule.Er PO Not Given BID [facility] Vitamin D 25 mcg 09/29/20 09:00 09/29/20 09:09 Cholecalciferol (Vitamin D3) 25 Mcg Tablet PO 25 mcg DAILY [facility] Administration Labs CBC & Chem 7: 09/29/20 05:42 09/29/20 05:42 Labs: Laboratory Results - last 24 hr 09/28/20 09/28/20 09/28/20 15:21 15:21 15:21 WBC 5.8 RBC 4.80 Hgb 14.2 Hct 41.7 L MCV 86.9 MCH 29.6 MCHC 34.1 RDW 12.8 Plt Count 148 L MPV 9.9 Immature Gran % (Auto) 0.3 Neut % (Auto) 55.3 Lymph % (Auto) 30.2 [place] % (Auto) 10.4 Eos % (Auto) 3.5 Baso % (Auto) 0.3 Lymph # (Auto) 1.7 [place] # (Auto) 0.6 Eos # (Auto) 0.2 Baso # (Auto) 0.0 Abs Immat Gran (auto) 0.02 Absolute Neuts (auto) 3.2 Absolute Nucleated RBC 0.000 Nucleated RBC % (auto) 0.0 PT 11.8 Whole Blood PT INR 1.0 Whole Blood INR APTT 31.3 Sodium 140 Potassium 4.0 Chloride 106 Carbon Dioxide 24 Anion Gap 14 BUN 24 H Creatinine 1.63 H Estim Creat Clear Calc 59.0 Estimated GFR 44 POC Glucose Random Glucose 191 H Calcium 9.3 Magnesium 1.7 Total Bilirubin 0.4 Direct Bilirubin 0.2 AST 30 ALT 27 Alkaline Phosphatase 90 Troponin I High Sens Total Protein 6.9 Albumin 3.9 Lipase 32 Urine Color Urine Appearance Urine pH Ur Specific [place] Urine Protein Urine Glucose (UA) Urine Ketones Urine Blood Urine Nitrite Ur Leukocyte Esterase Urine RBC Urine WBC Ur Squamous Epith Cells Urine Bacteria Urine Yeast Urine Opiates Screen Ur Barbiturates Screen Ur Phencyclidine Scrn Ur Amphetamines Screen U Benzodiazepines Scrn Urine Cocaine Screen U Marijuana (THC) Screen Ethyl Alcohol COVID-19 ([facility]) COVID-19 Clin Com 09/28/20 09/28/20 09/28/20 15:21 15:21 15:21 WBC RBC Hgb Hct MCV MCH MCHC RDW Plt Count MPV Immature Gran % (Auto) Neut % (Auto) Lymph % (Auto) [place] % (Auto) Eos % (Auto) Baso % (Auto) Lymph # (Auto) [place] # (Auto) Eos # (Auto) Baso # (Auto) Abs Immat Gran (auto) Absolute Neuts (auto) Absolute Nucleated RBC Nucleated RBC % (auto) PT Whole Blood PT INR Whole Blood INR APTT Sodium Potassium Chloride Carbon Dioxide Anion Gap BUN Creatinine Estim Creat Clear Calc Estimated GFR POC Glucose Random Glucose Calcium Magnesium Total Bilirubin Direct Bilirubin AST ALT Alkaline Phosphatase Troponin I High Sens 5.7 Total Protein Albumin Lipase Urine Color Urine Appearance Urine pH Ur Specific [place] Urine Protein Urine Glucose (UA) Urine Ketones Urine Blood Urine Nitrite Ur Leukocyte Esterase Urine RBC Urine WBC Ur Squamous Epith Cells Urine Bacteria Urine Yeast Urine Opiates Screen Ur Barbiturates Screen Ur Phencyclidine Scrn Ur Amphetamines Screen U Benzodiazepines Scrn Urine Cocaine Screen U Marijuana (THC) Screen Ethyl Alcohol < 10 COVID-19 ([facility]) Negative COVID-19 [facility] Com See Note 09/28/20 09/28/20 09/28/20 15:21 15:22 18:07 WBC RBC Hgb Hct MCV MCH MCHC RDW Plt Count MPV Immature Gran % (Auto) Neut % (Auto) Lymph % (Auto) [place] % (Auto) Eos % (Auto) Baso % (Auto) Lymph # (Auto) [place] # (Auto) Eos # (Auto) Baso # (Auto) Abs Immat Gran (auto) Absolute Neuts (auto) Absolute Nucleated RBC Nucleated RBC % (auto) PT Whole Blood PT 11.9 INR Whole Blood INR 1.0 APTT Sodium Potassium Chloride Carbon Dioxide Anion Gap BUN Creatinine Estim Creat Clear Calc Estimated GFR POC Glucose 190 H Random Glucose Calcium Magnesium Total Bilirubin Direct Bilirubin AST ALT Alkaline Phosphatase Troponin I High Sens Total Protein Albumin Lipase Urine Color Urine Appearance Urine pH Ur Specific [place] Urine Protein Urine Glucose (UA) Urine Ketones Urine Blood Urine Nitrite Ur Leukocyte Esterase Urine RBC Urine WBC Ur Squamous Epith Cells Urine Bacteria Urine Yeast Urine Opiates Screen Not Detected Ur Barbiturates Screen Not Detected Ur Phencyclidine Scrn Not Detected Ur Amphetamines Screen Not Detected U Benzodiazepines Scrn Not Detected Urine Cocaine Screen Not Detected U Marijuana (THC) Screen Not Detected Ethyl Alcohol COVID-19 ([facility]) COVID-19 [facility] 09/28/20 09/28/20 09/29/20 18:08 20:06 03:51 WBC RBC Hgb Hct MCV MCH MCHC RDW Plt Count MPV Immature Gran % (Auto) Neut % (Auto) Lymph % (Auto) [place] % (Auto) Eos % (Auto) Baso % (Auto) Lymph # (Auto) [place] # (Auto) Eos # (Auto) Baso # (Auto) Abs Immat Gran (auto) Absolute Neuts (auto) Absolute Nucleated RBC Nucleated RBC % (auto) PT Whole Blood PT INR Whole Blood INR APTT Sodium Potassium Chloride Carbon Dioxide Anion Gap BUN Creatinine Estim Creat Clear Calc Estimated GFR POC Glucose 214 H 125 H Random Glucose Calcium Magnesium Total Bilirubin Direct Bilirubin AST ALT Alkaline Phosphatase Troponin I High Sens Total Protein Albumin Lipase Urine Color YELLOW Urine Appearance CLEAR Urine pH 6.0 Ur Specific [place] 1.010 Urine Protein NEG Urine Glucose (UA) >=1000 H Urine Ketones NEG Urine Blood TRACE Urine Nitrite NEG Ur Leukocyte Esterase NEG Urine RBC 0-2 Urine WBC 5-9 H Ur Squamous Epith Cells 4+ Urine Bacteria TRACE Urine Yeast 1+ Urine Opiates Screen Ur Barbiturates Screen Ur Phencyclidine Scrn Ur Amphetamines Screen U Benzodiazepines Scrn Urine Cocaine Screen U Marijuana (THC) Screen Ethyl Alcohol COVID-19 ([facility]) COVID-19 [facility] 09/29/20 09/29/20 09/29/20 05:42 05:42 07:38 WBC 6.2 RBC 4.79 Hgb 14.2 Hct 42.1 MCV 87.9 MCH 29.6 MCHC 33.7 RDW 13.0 Plt Count 154 L MPV 10.4 Immature Gran % (Auto) 0.2 Neut % (Auto) 55.8 Lymph % (Auto) 28.4 [place] % (Auto) 11.4 H Eos % (Auto) 3.7 Baso % (Auto) 0.5 Lymph # (Auto) 1.8 [place] # (Auto) 0.7 Eos # (Auto) 0.2 Baso # (Auto) 0.0 Abs Immat Gran (auto) 0.01 Absolute Neuts (auto) 3.4 Absolute Nucleated RBC 0.000 Nucleated RBC % (auto) 0.0 PT Whole Blood PT INR Whole Blood INR APTT Sodium 142 Potassium 4.1 Chloride 104 Carbon Dioxide 29 Anion Gap 13 BUN 22 H Creatinine 1.68 H Estim Creat Clear Calc 57.2 Estimated GFR 42 POC Glucose 131 H Random Glucose 128 H Calcium 9.7 Magnesium Total Bilirubin Direct Bilirubin AST ALT Alkaline Phosphatase Troponin I High Sens Total Protein Albumin Lipase Urine Color Urine Appearance Urine pH Ur Specific [place] Urine Protein Urine Glucose (UA) Urine Ketones Urine Blood Urine Nitrite Ur Leukocyte Esterase Urine RBC Urine WBC Ur Squamous Epith Cells Urine Bacteria Urine Yeast Urine Opiates Screen Ur Barbiturates Screen Ur Phencyclidine Scrn Ur Amphetamines Screen U Benzodiazepines Scrn Urine Cocaine Screen U Marijuana (THC) Screen Ethyl Alcohol COVID-19 ([facility]) [facility] Com 09/29/20 11:13 WBC RBC Hgb Hct MCV MCH MCHC RDW Plt Count MPV Immature Gran % (Auto) Neut % (Auto) Lymph % (Auto) [place] % (Auto) Eos % (Auto) Baso % (Auto) Lymph # (Auto) [place] # (Auto) Eos # (Auto) Baso # (Auto) Abs Immat Gran (auto) Absolute Neuts (auto) Absolute Nucleated RBC Nucleated RBC % (auto) PT Whole Blood PT INR Whole Blood INR APTT Sodium Potassium Chloride Carbon Dioxide Anion Gap BUN Creatinine Estim Creat Clear Calc Estimated GFR POC Glucose 171 H Random Glucose Calcium Magnesium Total Bilirubin Direct Bilirubin AST ALT Alkaline Phosphatase Troponin I High Sens Total Protein Albumin Lipase Urine Color Urine Appearance Urine pH Ur Specific [place] Urine Protein Urine Glucose (UA) Urine Ketones Urine Blood Urine Nitrite Ur Leukocyte Esterase Urine RBC Urine WBC Ur Squamous Epith Cells Urine Bacteria Urine Yeast Urine Opiates Screen Ur Barbiturates Screen Ur Phencyclidine Scrn Ur Amphetamines Screen U Benzodiazepines Scrn Urine Cocaine Screen U Marijuana (THC) Screen Ethyl Alcohol COVID-19 ([facility]) COVID-19 Clin Com Microbiology Microbiology Results: Microbiology 09/28/20 Unknown Urine Culture - Final Urine clean catch - Clean Catch Midstream Strep agalactiae (Grp B) Quality Stroke Does the patient have a stroke diagnosis?: Yes Reason for No Anti-thrombotic by Day Two: N/A - Med Ordered VTE Prior VTE?: Yes VTE Risk Level:: Medical - moderate - high VTE Device Contraindication: Treatment Not Indicated VTE Drug Contraindication: N/A - Med Ordered Assessment and Plan (1) Cerebral infarction: Status: Acute (2) Hemiparesis of right dominant side: Status: Acute (3) Uncontrolled diabetes mellitus: Status: Acute (4) Essential hypertension: Status: Acute (5) Obesity due to excess calories: Status: Acute Assessment and Plan: 60yo M with controlled DM2, morbid obesity, CKD3, HLD, and history of COVID-19 pneumonia complicated by DVT/PE for which he was anticogulated with rivaroxaban for 2-3 months, was admitted 09/25-09/26/20 for ischemic CVA of left basal ganglia chracterized by mild dysarthria and R hand weakness. He unfortunately presents nearly 24 hours after developing worsening R-sided facial droop and R hemiparesis. # acute CVA persistent right hemiparesis with dysarthria, no new neurological symptoms, CT head done this morning follow report will obtain MRI study , case discussed with Dr. 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 Continue DAPT with ASA + clopidogrel and high-intensity statin will need acute rehab upon discharge, spoke with and updated her about current condition and plan of care # CKD3 - SCr stable at baseline; avoid nephrotoxins # HLD - continue statin and ezetimibe, recent LDL 101 # HTN - BP stable continue to hold amlodipine for now [started on last admission] to allow permissive hypertension # DM2, A1c 12.2 - blood sugars stable,continue Lantus insulin, add correction-dose lispro # morbid obesity - weight reduction recommended, follow low-calorie diet # VTE ppx added Lovenox # code - FULL
--- NOTE | 2020-09-29 14:11 | PC.NURSE ---
Urgent MRI ordered - consent form filled out w/ patients . Patient okay to go off monitor for imaging per [facility] protocol.
[2020-09-29 16:09] LABS: Glucose, Whole Blood 194 mg/dL (60-115)
[2020-09-29] MEDS: Insulin Lispro 100 UNIT/ML 3 ML VIAL SUBCUT ×2 (16:31→20:26)
[2020-09-29 20:15] LABS: Glucose, Whole Blood 177 mg/dL (60-115)
[2020-09-29] MEDS: Insulin Glargine,Hum.rec.anlog 100 UNIT/ML 10 ML VIAL 20 UNIT SUBCUT (20:26)
[2020-09-29] MEDS: Atorvastatin Calcium 80 MG TABLET PO (20:26)
[2020-09-29] MEDS: Magnesium Oxide 400 MG TABLET PO (20:49)
[2020-09-29] MEDS: Potassium Chloride Packet 20 MEQ PACKET PO (20:50)
[2020-09-30] MEDS: diphenhydrAMINE HCL 25 MG TABLET PO ×2 (00:37→18:18)
[2020-09-30 02:00] VITALS: BP 156/77; PULSE 95; RESP 18; TEMP 36.6; O2SAT 95
--- NOTE | 2020-09-30 04:53 | PC.NURSE ---
Pt c/o muscle cramps, pt received, per his request potassium and magnesium which he takes at home for muscle cramps but they are continuing not allowing him to sleep pt requesting something for sleep. made aware. pt called and but her on speaker as historical interpreter, states the pt feels this Rn did not understand what he was asking for, RN reassured pt and that this Rn understands the pts needs, Md remineded of sleeping medication for pt. 1 time dose 25mg diphenhydramine ordered and given 0030.
[2020-09-30 07:17] LABS: Glucose, Whole Blood 140 mg/dL (60-115)
[2020-09-30 07:55] VITALS: BP 162/74; PULSE 84; RESP 18; TEMP 36.6; O2SAT 94
[2020-09-30] MEDS: Aspirin Enteric Coated 81 MG TABLET.DR PO (08:37)
[2020-09-30] MEDS: Clopidogrel Bisulfate 75 MG TABLET PO (08:37)
[2020-09-30] MEDS: Ezetimibe 10 MG TABLET PO (08:37)
[2020-09-30] MEDS: Cholecalciferol (Vitamin D3) 25 MCG TABLET PO (08:37)
[2020-09-30] MEDS: Magnesium Oxide 400 MG TABLET PO (08:37)
[2020-09-30] MEDS: Potassium Chloride Packet 20 MEQ PACKET PO ×2 (08:38→21:28)
[2020-09-30] MEDS: Enoxaparin Sodium 40 MG/0.4 ML SYRINGE SUBCUT (10:52)
[2020-09-30 10:57] LABS: Glucose, Whole Blood 196 mg/dL (60-115)
[2020-09-30] MEDS: Insulin Lispro 100 UNIT/ML 3 ML VIAL SUBCUT ×3 (11:10→21:27)
[2020-09-30 11:25] VITALS: BP 133/68; PULSE 82; RESP 18; TEMP 36.7; O2SAT 97
[2020-09-30 15:01] VITALS: BP 125/77; PULSE 102; RESP 18; TEMP 36.2; O2SAT 95
--- NOTE | 2020-09-30 15:17 | P.PNIM_ITS ---
Subjective Subjective Date of Service: 09/30/20 Interval History: in good spirits this morning, right leg weakness is significantly improved, no new neuro deficits denies headache, no dizziness. General no headache no dizziness no fever chills. CVS no chest pain, no palpitation. Respiratory no cough, no sob. Gastrointestinal no nausea no vomiting, no abdominal pain Physical Exam Vital Signs: Vital Signs: Last Vital Signs Temp 97.2 F 09/30/20 15:01 Pulse 102 H 09/30/20 15:01 Resp 18 09/30/20 15:01 BP 125/77 09/30/20 15:01 Pulse Ox 95 09/30/20 15:01 Body Mass Index 38.7 Gen: no distress, right eye subconjunctival hemorrhage Neck: supple, no carotid bruits Lungs: clear to auscultation bilaterally Heart: regular rate and rhythm, no murmurs Abd: soft, obese non-tender, non-distended Ext: no edema Skin: warm, dry no rash Neuro: alert and oriented, R-sided lower facial droop, marked RUE weakness + RLE weakness improving, speech dysarthric Psych: appropriate affect Objective Data Current Medications Generic Name Dose Route Start Last Admin Trade Name Freq PRN Reason Stop Dose Admin Acetaminophen 650 mg 09/28/20 16:13 Acetaminophen 325 Mg Tablet PO Q6H PRN Pain, Mild (Pain Scale 1-3) Aspirin 81 mg 09/28/20 16:15 09/30/20 08:37 Aspirin Enteric Coated 81 Mg Tablet. PO 81 mg DAILY LURDES Administration Atorvastatin Calcium 80 mg 09/28/20 21:00 09/29/20 20:26 Atorvastatin Calcium 80 Mg Tablet PO 80 mg BEDTIME LURDES Administration Clopidogrel Bisulfate 75 mg 09/28/20 16:15 09/30/20 08:37 Clopidogrel Bisulfate 75 Mg Tablet PO 75 mg DAILY LURDES Administration Ezetimibe 10 mg 09/29/20 09:00 09/30/20 08:37 Ezetimibe 10 Mg Tablet PO 10 mg DAILY LURDES Administration Enoxaparin Sodium 40 mg 09/29/20 11:00 09/30/20 10:52 Enoxaparin Sodium 40 Mg/0.4 Ml Syringe SUBCUT 40 mg Q24H LURDES Administration Insulin Glargine 20 unit 09/28/20 21:00 09/29/20 20:26 Insulin Glargine,Hum.Rec.Anlog 100 Unit/Ml 10 Ml Vial SUBCUT 20 unit BEDTIME LURDES Administration Insulin Human Lispro 0 unit 09/28/20 16:30 09/30/20 11:10 Insulin Lispro 100 Unit/Ml 3 Ml Vial SUBCUT 2 unit QIDACHS LURDES Administration Protocol Magnesium Oxide 400 mg 09/29/20 20:40 09/30/20 08:37 Magnesium Oxide 400 Mg Tablet PO 400 mg DAILY LURDES Administration Ondansetron HCl 4 mg 09/28/20 16:13 Ondansetron Hcl 4 Mg/2 Ml Vial IVPUSH Q8H PRN Nausea and Vomiting Pharmacy Consult 1 each 09/28/20 15:57 Consult Rx Perform Med Rec MISCELLANE ONCE PRN Consult order Potassium Chloride 20 meq 09/29/20 21:00 09/30/20 08:38 Potassium Chloride Packet 20 Meq Packet PO 20 meq BID LURDES Administration Vitamin D 25 mcg 09/29/20 09:00 09/30/20 08:37 Cholecalciferol (Vitamin D3) 25 Mcg Tablet PO 25 mcg DAILY LURDES Administration Labs CBC & Chem 7: 09/29/20 05:42 09/29/20 05:42 Labs: Laboratory Results - last 24 hr 09/29/20 09/29/20 09/30/20 16:03 20:11 07:14 POC Glucose 194 H 177 H 140 H 09/30/20 10:54 POC Glucose 196 H Microbiology Microbiology Results: Microbiology 09/28/20 Unknown Urine Culture - Final Urine clean catch - Clean Catch Midstream Strep agalactiae (Grp B) Quality Stroke Does the patient have a stroke diagnosis?: Yes Reason for No Anti-thrombotic by Day Two: N/A - Med Ordered VTE Prior VTE?: Yes VTE Risk Level:: Medical - moderate - high VTE Device Contraindication: Treatment Not Indicated VTE Drug Contraindication: N/A - Med Ordered Assessment and Plan (1) Cerebral infarction: Status: Acute (2) Hemiparesis of right dominant side: Status: Acute (3) Uncontrolled diabetes mellitus: Status: Acute (4) Hyperlipidemia LDL goal <70: Status: Acute (5) Essential hypertension: Status: Acute (6) Obesity due to excess calories: Status: Acute Assessment and Plan: 60yo M with controlled DM2, morbid obesity, CKD3, HLD, and history of COVID-19 pneumonia complicated by DVT/PE for which he was anticogulated with rivaroxaban for 2-3 months, was admitted 09/25-09/26/20 for ischemic CVA of left basal ganglia chracterized by mild dysarthria and R hand weakness. He unfortunately presents nearly 24 hours after developing worsening R-sided facial droop and R hemiparesis. # acute CVA no new neurological symptoms, persistent right hemiparesis with dysarthria, right lower extremity weakness is better repeat CT head yesterday showed no change MRI study showed acute infarction left basal ganglia, chronic micro is vascular ischemic change , ischemic stroke not related to emboli, recent echo showed normal EF and no obvious evidence of inter atrial shunt follow-up with PT/OT/RETAIL SALES ASSOCIATE SEASONAL consultations. Continue DAPT with ASA + clopidogrel and high-intensity statin will need acute rehab upon discharge, spoke with and updated her about current condition and plan of care recommended weight reduction good blood pressure and blood sugar control # CKD3 - SCr stable at baseline; avoid nephrotoxins # HLD - continue statin and ezetimibe, recent LDL 101 # HTN - BP stable continue to hold amlodipine for now # DM2, A1c 12.2 - blood sugars stable,continue Lantus insulin, add correction-dose lispro # morbid obesity - weight reduction recommended, follow low-calorie diet # VTE ppx added Lovenox # code - FULL
[2020-09-30 16:11] LABS: Glucose, Whole Blood 229 mg/dL (60-115)
[2020-09-30 19:20] VITALS: BP 162/74; PULSE 98; RESP 18; TEMP 36.4; O2SAT 94
[2020-09-30 20:10] LABS: Glucose, Whole Blood 214 mg/dL (60-115)
[2020-09-30] MEDS: Atorvastatin Calcium 80 MG TABLET PO (21:27)
[2020-09-30] MEDS: Insulin Glargine,Hum.rec.anlog 100 UNIT/ML 10 ML VIAL 20 UNIT SUBCUT (21:27)
[2020-09-30 23:18] VITALS: BP 131/66; PULSE 87; RESP 18; TEMP 36.7; O2SAT 92
[2020-10-01 03:23] VITALS: BP 139/73; PULSE 78; RESP 20; TEMP 36.2; O2SAT 95
[2020-10-01 07:04] LABS: D Dimer < 200 NG/ML
[2020-10-01 07:13] LABS: Glucose, Whole Blood 133 mg/dL (60-115)
[2020-10-01] MEDS: Potassium Chloride Packet 20 MEQ PACKET PO (07:52)
[2020-10-01] MEDS: Clopidogrel Bisulfate 75 MG TABLET PO (07:52)
[2020-10-01] MEDS: Aspirin Enteric Coated 81 MG TABLET.DR PO (07:52)
[2020-10-01] MEDS: Ezetimibe 10 MG TABLET PO (07:52)
[2020-10-01] MEDS: Cholecalciferol (Vitamin D3) 25 MCG TABLET PO (07:52)
[2020-10-01] MEDS: Magnesium Oxide 400 MG TABLET PO (07:52)
[2020-10-01 08:00] VITALS: BP 134/75; PULSE 81; RESP 18; TEMP 36.7; O2SAT 96
--- NOTE | 2020-10-01 10:33 | MHC.SL.SWA ---
Speech Pathologist Impression: Risk of Aspiration Oralpharyngeal Dysphagia Risk of Aspiration Due to: Neurological Condition Dysphasia Diet Status: Upgrade Liquid Consistency and Strategies for Safe Swallow: Liquid Intake Recommendation: Thin Liquid Intake Strategies: Small Sips Solid Food Consistency: Dietary Recommendations: Regular Additional Modifications to Solid Foods: Recommend upgrade to unmodified diet regular solids/thin liquids. No overt s/s of aspiration at bedside. Patient may need assistance with tray set up due to hemiparesis. Recommend continue inpatient speech therapy to ensure tolerance of unmodified diet and to target dysarthria/aphasia. Oral Medication Intake: Whole with Liquid Compensatory Strategies and Precautions to be Taken for Safe Swallow: Sitting Upright (90 deg) Small Bites and Sips Alternate Liquids/Solids Supervision While Eating and Drinking for Safe Swallow: Intermittent Supervision Swallowing Recommended Treatments: Compens. Strategy Educat. Recommendation for Speech: Inpatient Speech Therapy Casino Cashier Manager Clinican/Clinical Fellow: No Supervisory Statement: I have reviewed and agree with the student/clinical fellow's documentation: N/A Speech Language Pathologist: Helen Cutler M.A., CCC-CRAP SHOOTER
[2020-10-01 10:57] LABS: Glucose, Whole Blood 213 mg/dL (60-115)
[2020-10-01] MEDS: Enoxaparin Sodium 40 MG/0.4 ML SYRINGE SUBCUT (11:20)
[2020-10-01] MEDS: Insulin Lispro 100 UNIT/ML 3 ML VIAL SUBCUT (11:20)
[2020-10-01 11:28] VITALS: BP 156/81; PULSE 102; RESP 18; TEMP 36.2; O2SAT 97
--- NOTE | 2020-10-01 12:47 | PM.DS ---
DS: Providers Provider Date of Service: 10/01/20 Date of admission: 09/28/20 16:13 Primary care physician: Unknown Physician Consults: 09/28/20 16:13 Consult to Neurology Routine Consulting Provider: [facility] Reason for consultation: recurrent/worsening CVA DS: Diagnosis Discharge Diagnosis (1) Cerebral infarction: Status: Acute (2) Hemiparesis of right dominant side: Status: Acute (3) Uncontrolled diabetes mellitus: Status: Acute (4) Hyperlipidemia LDL goal <70: Status: Acute (5) Essential hypertension: Status: Acute (6) Obesity due to excess calories: Status: Acute DS: Medications Discharge Medications Home Medications: Home Medications Medication Instructions Recorded Confirmed empagliflozin 25 mg tablet 25 mg PO QAM 02/20/20 09/28/20 Tresiba FlexTouch U-200 35 unit SUBCUT DAILY 09/25/20 09/28/20 Trulicity 1.5 mg SUBCUT MO 09/28/20 09/28/20 Previous Rx's Medication Instructions Recorded cholecalciferol (vitamin D3) 50 50 mcg PO DAILY #30 cap 05/23/20 mcg (2,000 unit) capsule ezetimibe 10 mg tablet 10 mg PO DAILY #90 tab 08/08/20 amlodipine 5 mg PO DAILY #30 tab 09/26/20 aspirin 81 mg PO DAILY #21 tab 09/26/20 atorvastatin 80 mg PO BEDTIME #30 tab 09/26/20 clopidogrel 75 mg PO DAILY #30 tab 09/26/20 magnesium oxide 400 mg PO DAILY #30 tab 10/01/20 potassium chloride 20 meq PO DAILY #30 ea 10/01/20 DS: Summary Hospital Course Hospital Course: history of presenting illness Chief Complaint: R-sided weakness This 60 year-old R-hand dominant man with uncontrolled DM2, morbid obesity, CKD3, HLD, and prior COVID-19 pneumonia complicated by DVT/PE for which he was anticoagulated with 3 months of rivoraxaban was discharged here 09/26/20 after admission on 09/25/20 for minor CVA characterized by mild dysarthria and R hand weakness, the latter of which had resolved by the time he presented to the ED [thus giving him an NIHSS of 1]. He was discharged on DAPT. He had a visit with the VNA at home yesterday morning and was feeling well. However, quite suddenly, at 12:00 noon yesterday, he developed R-sided facial droop, worsening dysarthria and right arm and leg weakness. He denies headache, cough, dyspnea, chest pain, or palpitations. He does endorse cramping pain of the left thigh. A CTA of the head and neck in the ED demonstrated evolving infarcts in the left basal ganglia and subinsular region. The right M1/M2 regione of the right MCA was irregular, as were the sylvian branch of the left MCA and both information technology assistant. Neurology was consulted urgently and recommended admission for further evaluation. Per discharge summary from 09/26/20: CT of the scan was negative for acute abnormality, but showed extensive chronic small-vessel microangiopathy. CTA of the head and neck was negative for large-vessel occlusion but did demonstrate a small acute left basal gangliar infarct with other patchy areas of hypoattenuation in the left MCA territory suspicious for an acute CVA. Neurology was consulted. The patient was outside of the window for tPA. Neurology was consulted and recommend admission for further evaluation. The patient was admitted to telemetry. He had no arrhythmias. TTE did not demonstrate intra-atrial shunt or intracardiac thrombus. Neurology was consulted. MRI was recommended, but the patient will not fit in our scanner due to his girth; as such, an outpatient open MRI should be done. Dual antiplatelet therapy with both clopidogrel and aspirin for 3 weeks was recommended, to be folowed by clopidogrel. A high-intensity statin was started. He was started on amlodipine for blood pressure control. He needs better control of diabetes as evidence by A1c of 12.4; consideration should be given to outpatient endocrinology referral for continuous glucose monitor. He should follow up with his primary care doctor in 1 week and with Neurology in 2 weeks. He was discharged home with VNA services for medication management, blood pressure and blood glucose monitoring, occupational therapy for residual hand weakness, and speech therapy for residual dysarthria. hospital course 60yo M with controlled DM2, morbid obesity, CKD3, HLD, and history of COVID-19 pneumonia complicated by DVT/PE for which he was anticogulated with rivaroxaban for 2-3 months, was admitted 09/25-09/26/20 for ischemic CVA of left basal ganglia chracterized by mild dysarthria and R hand weakness. He unfortunately presents nearly 24 hours after developing worsening R-sided facial droop and R hemiparesis and diagnosed to have acute CVA patient did not qualify for tPA due to duration of symptoms, he has been continued on aspirin and Plavix, patient seen by Physical therapy and Occupational therapy and they recommend acute rehab, since hospitalization patient did not have new neurological symptoms, an MRI study was obtained that showed acute infarction of left basal ganglia and chronic microvascular ischemic changes, no evidence of embolic stroke, patient in May was diagnosed to have COVID infection and pulmonary embolism and was treated with anticoagulation that he received for total 2-3 months. Patient will need close follow-up of blood sugars, blood pressure and cholesterol, patient seen by speech therapy and he can be on regular solid and thing in liquids with whole pill. patient very depressed about current medical situation therefore will need continued counseling and support. Patient has chronic kidney disease his serum creatinine remains stable, in regard to hyperlipidemia continue statin and Zetia his LDL is 101, his hemoglobin A1c is 12.2 therefore will need repeat hemoglobin A1c in 4 weeks continue current insulin, in regard to morbid obesity he has been strongly advised to follow low-calorie diet and exercise. patient has chronic spasm for which he is on magnesium and potassium, that can be continued. Time Spent with Patient Time attestation: Total time spent providing and/or coordinating discharge services: Discharge coordination time: Greater than 30 minutes Quality: Stroke Does the patient have a stroke diagnosis?: Yes Reason for No Anti-thrombotic at DC: N/A - Med Ordered Reason for No Anticoagulant at DC: Drug treatment not indicated Reason Not Initiating IV-Tpa: Drug treatment not indicated Reason for No Anti-thrombotic by Day Two: N/A - Med Ordered Reason for No Statin at DC: N/A - Med Ordered Physical Exam Vital Signs: Vital Signs: Last Vital Signs Temp 97.2 F 10/01/20 11:28 Pulse 102 H 10/01/20 11:28 Resp 18 10/01/20 11:28 BP 156/81 H 10/01/20 11:28 Pulse Ox 97 10/01/20 11:28 Body Mass Index 38.7 Gen: no distress, Right eye subconjunctival hemorrhage Neck: supple, no carotid bruits Lungs: clear to auscultation bilaterally Heart: regular rate and rhythm, no murmurs Abd: soft, obese non-tender, non-distended Ext: no edema Skin: warm, dry no rash Neuro: alert and oriented, R-sided lower facial droop, marked RUE weakness + RLE weakness improving, speech dysarthric Psych: Depressed mood DS: Data Data Completed and Pending Labs on day of discharge: Laboratory Results - last 24 hr 09/30/20 09/30/20 10/01/20 16:06 20:06 06:09 D-Dimer < 200 POC Glucose 229 H 214 H 10/01/20 10/01/20 07:03 10:50 D-Dimer POC Glucose 133 H 213 H Discharge Plan Discharge Patient Disposition: Xfer Inpatient Rehab Fac Discharge Diagnosis: acute CVA diabetes mellitus/ uncontrolled blood sugar hyperlipidemia hypertension morbid obesity Referrals: [facility] [Outside] - 1 Week Physician,Unknown [Primary Care Provider] - 1 Week Discharge Medications: New magnesium oxide 400 mg (241.3 mg magnesium) Tablet 400 mg PO DAILY Qty: 30 RF: 0 potassium chloride 20 mEq Packet 20 meq PO DAILY Qty: 30 RF: 0 Continued cholecalciferol (vitamin D3) 50 mcg (2,000 unit) capsule 50 mcg PO DAILY Qty: 30 RF: 5 ezetimibe 10 mg tablet 10 mg PO DAILY Qty: 90 RF: 0 Tresiba FlexTouch U-200 200 unit/mL (3 mL) insulin pen 35 unit subcut DAILY RF: 0 atorvastatin 80 mg Tablet 80 mg PO BEDTIME Qty: 30 RF: 0 clopidogrel 75 mg Tablet 75 mg PO DAILY Qty: 30 RF: 0 amlodipine 5 mg Tablet 5 mg PO DAILY Qty: 30 RF: 0 aspirin 81 mg Tablet,Chewable 81 mg PO DAILY Qty: 21 RF: 0 Trulicity 1.5 mg/0.5 mL pen injector 1.5 mg subcut MO RF: 0 Jardiance 25 mg tablet 25 mg PO QAM RF: 0 Discontinued hydrochlorothiazide 12.5 mg capsule 2 cap PO DAILY RF: 0 potassium citrate 15 mEq tablet extended release 1 tab PO BID RF: 0 magnesium 200 mg Tablet 200 mg PO DAILY RF: 0 Discharge Orders: Discharge Order (Routine); Ordered 10/01/20 Ordered By: Hussein Bañuelos Diet: diabetic diet and low fat, low cholesterol Activity on Discharge: As tolerated Stand Alone Forms: Patient Portal Discharge page Care Plan Goals: acute CVA, need strict blood sugar control continue dual anti-platelet therapy, continue statins follow blood pressure closely. on magnesium and potassium for chronic generalized spasm Health Concerns: acute CVA need acute rehab for speech impairment and right hemiparesis Plan of Treatment: close outpatient follow-up with primary care physician Assessment: as above
--- NOTE | 2020-10-01 13:05 | MHC.CM.PN ---
Patient has been medically cleared for dc to Acute Rehab today. Patient will dc to his first choice facility- [facility] today at 4 PM, via [facility].Last IMM addressed on 09/29/20.
[2020-10-01 14:07] LABS: COVID-19 Test Negative (Negative)
[2020-10-01 14:26] VITALS: BP 156/81; PULSE 102
[2020-10-01] MEDS: amLODIPine Besylate 5 MG TABLET PO (14:26)
== END 2020-10-01 16:15 | DRG 65 ==
LOC: HO.ED 15:52 → HO.EDOVER 16:22 → HO.IMC 16:40
PROVIDERS: Nurse Practitioner Family; Admitting Provider Family Medicine; Emergency Provider Internal Medicine; Visit Provider Hospitalist
DX: I63.89 Other cerebral infarction (principal); G81.91 Hemiplegia, unspecified affecting right dominant side; E66.01 Morbid (severe) obesity due to excess calories; E11.22 Type 2 diabetes mellitus with diabetic chronic kidney disease; N18.30 Chronic kidney disease, stage 3 unspecified; E78.5 Hyperlipidemia, unspecified; R29.717 NIHSS score 17; M62.838 Other muscle spasm; E11.65 Type 2 diabetes mellitus with hyperglycemia; Z86.16 Personal history of COVID-19; Z20.822 Contact with and (suspected) exposure to COVID-19; Z86.718 Personal history of other venous thrombosis and embolism; Z68.38 Body mass index [BMI] 38.0-38.9, adult; Z88.0 Allergy status to penicillin; Z88.5 Allergy status to narcotic agent; Z88.6 Allergy status to analgesic agent; Z79.4 Long term (current) use of insulin; Z79.02 Long term (current) use of antithrombotics/antiplatelets; Z79.82 Long term (current) use of aspirin; Z79.899 Other long term (current) drug therapy
CPT/HCPCS: 36415; 70450; 70496; 70498; 70551; 71045; 80048; 80076; 80307; 81001; 82077; 82947; 83690; 83735; 84484; 85025; 85379; 85610; 85730; 87086; 87147; 87635; 93005; 93970; 97112; 97162; 97166; 97530; 99285; J1650; Q0163; Q9967

== ENCOUNTER → 2020-11-05 09:51 | Outpatient (BNVA) | payer MEDICARE, MEDICAID, SELFPAY | PROVIDERS: Visit Provider Nurse Practitioner Gerontology | DX: E11.65 Type 2 diabetes mellitus with hyperglycemia (principal); Z79.4 Long term (current) use of insulin; E78.5 Hyperlipidemia, unspecified; I10 Essential (primary) hypertension; E55.9 Vitamin D deficiency, unspecified; E66.09 Other obesity due to excess calories | CPT/HCPCS: Q3014 ==

== ENCOUNTER → 2021-03-22 11:11 | Outpatient (BNVA) | payer MEDICARE, MEDICAID, SELFPAY | PROVIDERS: Visit Provider Nurse Practitioner Gerontology | DX: E11.65 Type 2 diabetes mellitus with hyperglycemia (principal); E78.5 Hyperlipidemia, unspecified; E66.09 Other obesity due to excess calories; I10 Essential (primary) hypertension; Z68.34 Body mass index [BMI] 34.0-34.9, adult | CPT/HCPCS: 82947; 83036; 99212 ==

== ENCOUNTER 2021-04-25 03:17 | Emergency (ER) | payer MEDICARE, MEDICAID, SELFPAY ==
--- NOTE | ~2021-04-25 | CT_ITS ---
EXAMINATION: NONCONTRAST HEAD CT NONCONTRAST CERVICAL SPINE CT INDICATION INFORMATION: Fall COMPARISON: 09/29/2020 TECHNIQUE: Separate noncontrast CT examinations of the head and cervical spine were performed. Coronal and sagittal images were created for each examination at the technologist workstation. This CT examination was performed using dose optimization techniques as appropriate, variously including the following: *Automated exposure control *Adjustment of mA and/or kV according to patient size (this includes techniques or standardized protocols for targeted exams where dose is matched to indication/reason for exam; i.e. extremities or head) *Use of iterative reconstruction technique DLP: 1363 mGy-cm FINDINGS: Head: There is no evidence of acute intracranial hemorrhage or territorial infarction. No abnormal mass effect or midline shift is seen. De Souza to white matter differentiation is well preserved. No extra-axial fluid collections are identified. No hydrocephalus. No significant volume loss. Patchy periventricular and deep white matter hypoattenuation is consistent with mild small vessel ischemic changes. Chronic infarct in the left periventricular region. No acute osseous or soft tissue abnormality. The mastoid air cells and visualized portions of the paranasal sinuses are well aerated. Cervical spine: There is anatomic alignment of the vertebral bodies and posterior elements. The atlantoaxial and atlantooccipital articulations are intact. Vertebral body heights and intervertebral disc spaces are maintained. Multilevel endplate osteophyte formation is seen throughout. Mild facet arthropathy. No evidence of acute fracture. No prevertebral soft tissue swelling. Visualized portions of the lung apices are unremarkable. The thyroid gland is unremarkable. CT/CT cervical spine wo con IMPRESSION: 1. No acute intracranial finding. 2. No acute fracture or malalignment of the cervical spine. Mild degenerative changes.
[2021-04-25 03:25] VITALS: BP 148/98; PULSE 87; RESP 20; TEMP 36.9; O2SAT 96; BMI 33.6
--- NOTE | 2021-04-25 04:18 | ED.FALL ---
HPI - Fall General Chief Complaint: Fall Stated Complaint: LAC Time Seen by Provider: 04/25/21 03:34 Source: patient Mode of arrival: EMS History of Present Illness HPI Narrative: 60-year-old male with history having a CVA since summer of last year and states that he had a mechanical fall this morning where his right lower extremity, which is the affected leg, cost him to trip and fall striking his head without loss of consciousness. Patient states he has had his tetanus shot within the past 5 years denies any neck pain and wishes to go home. Related Data Home Medications Medication Instructions Recorded Confirmed baclofen 10 mg tablet 5 mg PO DAILY tab 11/05/20 11/05/20 Previous Rx's Medication Instructions Recorded clopidogrel 75 mg tablet 75 mg PO DAILY #30 tab 09/26/20 magnesium oxide 400 mg (241.3 mg 400 mg PO DAILY #30 tab 10/01/20 magnesium) tablet potassium chloride 20 mEq oral 20 meq PO DAILY #30 ea 10/01/20 packet empagliflozin 25 mg tablet 25 mg PO QAM #30 tab 10/11/20 (Jardiance) dulaglutide 1.5 mg/0.5 mL 1.5 mg (0.5 mL) SUBCUT QWEEK 84 11/05/20 subcutaneous pen injector Days #6 ml (Trulicity) ezetimibe 10 mg tablet 10 mg PO DAILY #90 tab 11/11/20 atorvastatin 80 mg tablet 80 mg PO BEDTIME #30 tab 11/30/20 blood sugar diagnostic (Contour 1 strip MISCELLANEOUS TID #100 11/30/20 Test Strips) strip tamsulosin 0.4 mg capsule 0.8 mg PO BEDTIME #90 cap 12/05/20 insulin degludec 200 unit/mL (3 26 unit (0.13 mL) SUBCUT DAILY #9 03/22/21 mL) subcutaneous pen (Tresiba ml FlexTouch U-200 insulin) Allergies Allergy/AdvReac Type Severity Reaction Status Date / Time vancomycin [VANCOMYCIN] Allergy Severe ANAPHYLAXIS Verified 03/22/21 11:27 morphine [MORPHINE] Allergy Intermediate RASH Verified 03/22/21 11:27 Penicillins Allergy Intermediate edema Verified 03/22/21 11:27 penicillin V Allergy Mild unknown Verified 03/22/21 11:27 ibuprofen [From MOTRIN] Allergy Unknown edema Verified 03/22/21 11:27 Motrin AdvReac Unknown Unknown Uncoded 03/22/21 11:27 Review of Systems Review of Systems: Pertinent positives and negatives as stated in HPI 10 point review of systems is otherwise negative. [facility] Past Medical History Source: nursing notes reviewed Medical History Back pain CAD (coronary artery disease) Cerebral infarction Colitis Controlled diabetes mellitus without complication, with long-term current use of insulin COVID-19 Diabetes type 2, uncontrolled Essential hypertension Hyperlipidemia LDL goal <70 Kidney stones Obesity due to excess calories Phimosis Pulmonary embolism Stroke Stroke Uncontrolled diabetes mellitus Vitamin D deficiency Surgical History History of colon surgery Hx of rotator cuff surgery Family History Family History Father Diabetes Mother No problems noted. Social History Social History Household Members: Family Housing: House Do you presently have visiting nurse or other home services: Yes Alcohol intake: never Patient Tobacco Use Status: Never used Tobacco Advance Directives: Yes Advance Directives on File: Yes Advance Directives Date on File: 05/10/20 service: No Current occupational status: disabled Physical Exam Vital Signs: Vital Signs: Last Vital Signs Temp 97.8 F 04/25/21 05:01 Pulse 83 04/25/21 05:01 Resp 16 04/25/21 05:01 BP 141/73 H 04/25/21 05:01 Pulse Ox 95 04/25/21 05:01 BMI result Body Mass Index 33.6 VITAL SIGNS: Reviewed. GENERAL: Well developed, well nourished, in no acute distress. HEAD: Normocephalic/contusion with superficial injury to the right parietal that does not require approximation. EYES: PERRLA, EOMI EARS: Ext canals without abnormality NOSE: Nares patent bilateral OROPHARYNX: no oral lesions noted, posterior pharynx clear LUNGS: Normal breath sounds. No adventitious sounds or accessory muscle use. SpO2<95> CARDIOVASCULAR: Regular rate and rhythm without noted murmurs ABDOMEN: Soft, non-tender, non-distended with bowel sounds. NEUROLOGIC: Alert and oriented x 4. Strength and sensation to light touch were grossly intact x 4 but baseline right-sided motor limitations when compared to left. Course Course Course Narrative: 60-year-old male with history and clinical presentation consistent with baseline right-sided deficits after CVA in summer. He sustained a mechanical fall this evening without loss of consciousness. On review of imaging studies they are without acute findings. This C-collar was cleared, patient was informed of all results and he was otherwise discharged home in stable condition. Discharge Plan Discharge Clinical Impression: Fall, Contusion of scalp Patient Disposition: Home, Self-Care Instructions: Scalp Contusion in Adults (ED), Fall Prevention for Older Adults (ED) Additional Instructions: 1. Resume all home medications as prescribed. 2. Recommend [id number] Tylenol as needed for pain control. Return to the ER for acute worsening of symptoms. Prescriptions: No [facility] Jardiance 25 mg tablet 25 mg PO QAM Qty: 30 RF: 3 Trulicity 1.5 mg/0.5 mL pen injector 1.5 mg subcut QWEEK 84 Days Qty: 6 RF: 1 ezetimibe 10 mg tablet 10 mg PO DAILY Qty: 90 RF: 1 atorvastatin 80 mg tablet 80 mg PO BEDTIME Qty: 30 RF: 6 Contour Test Strips Strip 1 strip miscellaneous TID Qty: 100 RF: 11 tamsulosin 0.4 mg capsule 0.8 mg PO BEDTIME Qty: 90 RF: 1 clopidogrel 75 mg Tablet 75 mg PO DAILY Qty: 30 RF: 0 magnesium oxide 400 mg (241.3 mg magnesium) Tablet 400 mg PO DAILY Qty: 30 RF: 0 potassium chloride 20 mEq Packet 20 meq PO DAILY Qty: 30 RF: 0 baclofen 10 mg tablet 5 mg PO DAILY RF: 0 Tresiba FlexTouch U-200 200 unit/mL (3 mL) insulin pen 26 unit subcut DAILY Qty: 9 RF: 4
[2021-04-25 05:01] VITALS: BP 141/73; PULSE 83; RESP 16; TEMP 36.6; O2SAT 95
== END 2021-04-25 05:51 | disposition home or self-care (01) ==
PROVIDERS: Emergency Provider Student in an Organized Health Care Education/Training Program
DX: S00.03XA Contusion of scalp, initial encounter (principal); W01.0XXA Fall on same level from slipping, tripping and stumbling without subsequent striking against object, initial encounter; Y93.9 Activity, unspecified; Y92.9 Unspecified place or not applicable; Y99.9 Unspecified external cause status
CPT/HCPCS: 70450; 72125; 99283; 99284

== ENCOUNTER → 2021-06-17 10:36 | Outpatient (BNVA) | payer MEDICARE, MEDICAID, SELFPAY | PROVIDERS: Visit Provider Registered Nurse Diabetes Educator | DX: E11.9 Type 2 diabetes mellitus without complications (principal); I10 Essential (primary) hypertension; Z79.4 Long term (current) use of insulin; Z86.16 Personal history of COVID-19; Z45.89 Encounter for adjustment and management of other implanted devices | CPT/HCPCS: 95250 ==

== ENCOUNTER → 2021-07-01 11:34 | Outpatient (BNVA) | payer MEDICARE, MEDICAID, SELFPAY | PROVIDERS: PCP Internal Medicine; Visit Provider Nurse Practitioner Gerontology | DX: E11.65 Type 2 diabetes mellitus with hyperglycemia (principal); E78.5 Hyperlipidemia, unspecified; E66.09 Other obesity due to excess calories; I10 Essential (primary) hypertension; Z79.4 Long term (current) use of insulin; Z68.36 Body mass index [BMI] 36.0-36.9, adult | CPT/HCPCS: 82947; 83036; Q3014 ==